=== PATIENT | female | born 1935 | race Caucasian/White ===

== ENCOUNTER → 2016-09-13 | Outpatient (REF) | payer MEDICARE, MEDICAID ==
[~2016-09-13] MED LIST: /TIOT18INH; ABIL15TA; BABY81CH; COLA100C2; CORE12.5; EFFE150C; GENTAMICIN SULFATE; MS C30TA2; NEUR300C; NYSTATIN; POLYTRIM OPTH; REFRESH PM; SENOKOT; SLIDING SCALE; ZOCO80TA
== END ==
PROVIDERS: ATTEND Internal Medicine
DX: E78.5 Hyperlipidemia, unspecified (principal); E11.9 Type 2 diabetes mellitus without complications

== ENCOUNTER → 2016-11-16 | Outpatient (REF) | payer MEDICARE, MEDICAID ==
[2016-11-16 10:52] LABS: MEAN CORPUSCULAR HEMOGLOBIN 30.9 pg (27.0-33.0); MEAN CORPUSCULAR HGB CONC 32.2 g/dl (32.0-36.5); MEAN CORPUSCULAR VOLUME 95.8 fl (80.0-96.0); RED CELL DISTRIBUTION WIDTH 13.7 % (11.5-14.5); WHITE BLOOD COUNT 6.3 K/mm3 (4.0-10.0)
[2016-11-16 11:39] LABS: ALBUMIN 3.1 GM/DL (3.2-5.2); ALBUMIN/GLOBULIN RATIO 0.97 (1.00-1.93); BILIRUBIN,TOTAL 0.3 MG/DL (0.2-1.0); CALCIUM LEVEL 8.4 MG/DL (8.8-10.2); CREATININE FOR GFR 1.2 MG/DL (0.55-1.02); GLOMERULAR FILTRATION RATE 46.1 (>39); POTASSIUM SERUM 4.5 MEQ/L (3.5-5.1); TOTAL PROTEIN 6.3 GM/DL (6.4-8.2)
== END ==
PROVIDERS: ATTEND Internal Medicine
DX: E11.9 Type 2 diabetes mellitus without complications (principal); E78.5 Hyperlipidemia, unspecified; J44.9 Chronic obstructive pulmonary disease, unspecified; E55.9 Vitamin D deficiency, unspecified

== ENCOUNTER → 2017-01-10 | Outpatient (REF) | payer MEDICARE, MEDICAID | PROVIDERS: ATTEND Internal Medicine | DX: N39.0 Urinary tract infection, site not specified (principal) ==

== ENCOUNTER → 2017-01-17 | Outpatient (REF) | payer MEDICARE, MEDICAID ==
--- NOTE | 2017-01-17 15:58 | REP ---
Left ankle series: Two views. History: Edema. Findings: AP and lateral views of the left ankle demonstrate tibiotalar osteoarthritic narrowing and spur formation moderate in degree. There is talonavicular and midfoot osteoarthritic spurring as well. Achilles and plantar calcaneal spurring is noted. No erosive changes seen. There is vascular calcification in the distal calf. Talofibular osteoarthritic spurring is also noted. Impression: Osteoarthritis. Vascular calcification. No acute bony abnormality. Signed by Jb Aquino MD 01/17/2017 04:40 P
== END ==
PROVIDERS: ATTEND Internal Medicine
DX: M19.072 Primary osteoarthritis, left ankle and foot (principal)

== ENCOUNTER → 2017-02-16 | Outpatient (CLI) | payer MEDICARE, MEDICAID ==
--- NOTE | 2017-02-16 09:35 | REP ---
CT HEAD WITHOUT CONTRAST: HISTORY: Bilateral arm numbness. COMPARISON: 02/05/2015 Areas of decreased attenuation are present in the periventricular white matter. This represents small vessel ischemic disease. There is no intraparenchymal hemorrhage, mass or midline shift. The ventricular system, and cortical sulci are dilated consistent with mild volume loss. There is no extracerebral collection. The visualized sinuses are clear. IMPRESSION: 1. Small vessel ischemic disease. 2. Mild volume loss. Signed by Elkin Ronquillo MD 02/16/2017 09:40 A
--- NOTE | 2017-02-16 09:38 | REP ---
CT CERVICAL SPINE WITHOUT CONTRAST: HISTORY: Bilateral arm numbness. COMPARISON: 02/05/2015. There is no acute fracture. Disc bulges are present at the C2-3 and C3-4 levels. Disc bulges with associated osteophyte formation are present at the C4-5 and C6-7 levels. There is fusion of the C5 and 6 vertebral bodies. Posterior osteophytes are present at this level. There is minimal narrowing of the spinal canal. Uncinate process and/or facet hypertrophy are present at the C2-3 through C7-T1 levels. These findings produce minimal to mild narrowing of the neural foramina. The C3-4, C4-5, C6-7 and C7-T1 intervertebral discs are decreased in height consistent with disc degeneration. There are 2 mm of anterior subluxation of C3 on 4. IMPRESSION: There is cervical spondylosis at the C2-3 through C7-T1 levels. There is no significant change compared to the previous study. Signed by Elkin Ronquillo MD 02/16/2017 09:40 A
== END ==
LOC: M RAD 08:42
PROVIDERS: ATTEND Nurse Practitioner Adult Health
DX: M47.812 Spondylosis without myelopathy or radiculopathy, cervical region (principal); I67.82 Cerebral ischemia; G31.9 Degenerative disease of nervous system, unspecified

== ENCOUNTER → 2017-03-17 | Outpatient (REF) | payer MEDICARE, MEDICAID | PROVIDERS: ATTEND Internal Medicine | DX: E11.9 Type 2 diabetes mellitus without complications (principal) ==

== ENCOUNTER → 2017-03-23 | Outpatient (REF) | payer MEDICARE, MEDICAID | LOC: M LAB REF 17:16 | PROVIDERS: ATTEND Internal Medicine | DX: N39.0 Urinary tract infection, site not specified (principal) ==

== ENCOUNTER → 2017-05-16 | Outpatient (REF) | payer MEDICARE, MEDICAID ==
[2017-05-16 11:22] LABS: MEAN CORPUSCULAR HEMOGLOBIN 32.2 pg (27.0-33.0); MEAN CORPUSCULAR HGB CONC 32.8 g/dl (32.0-36.5); MEAN CORPUSCULAR VOLUME 97.9 fl (80.0-96.0); RED CELL DISTRIBUTION WIDTH 13.3 % (11.5-14.5)
[2017-05-16 11:58] LABS: ALBUMIN/GLOBULIN RATIO 0.91 (1.00-1.93); BILIRUBIN,TOTAL 0.4 MG/DL (0.2-1.0); CALCIUM LEVEL 8.6 MG/DL (8.8-10.2); CREATININE FOR GFR 1.15 MG/DL (0.55-1.02); GLOMERULAR FILTRATION RATE 48.5 (>39); TOTAL PROTEIN 6.3 GM/DL (6.4-8.2)
[2017-05-16 12:07] LABS: POTASSIUM SERUM 5.5 MEQ/L (3.5-5.1)
== END ==
PROVIDERS: ATTEND Internal Medicine
DX: E11.9 Type 2 diabetes mellitus without complications (principal); J44.9 Chronic obstructive pulmonary disease, unspecified; D64.9 Anemia, unspecified

== ENCOUNTER → 2017-05-19 | Outpatient (REF) | payer MEDICARE, MEDICAID | PROVIDERS: ATTEND Internal Medicine | DX: E11.9 Type 2 diabetes mellitus without complications (principal); E87.5 Hyperkalemia ==

== ENCOUNTER → 2017-05-24 | Outpatient (REF) | payer MEDICARE, MEDICAID ==
[2017-05-24 10:22] LABS: CREATININE FOR GFR 1.2 MG/DL (0.55-1.02); GLOMERULAR FILTRATION RATE 46.1 (>39)
[2017-05-24 10:25] LABS: POTASSIUM SERUM 5.2 MEQ/L (3.5-5.1)
== END ==
PROVIDERS: ATTEND Internal Medicine
DX: E87.5 Hyperkalemia (principal)

== ENCOUNTER → 2017-05-31 | Outpatient (REF) | payer MEDICARE, MEDICAID ==
[2017-05-31 11:40] LABS: CALCIUM LEVEL 8.6 MG/DL (8.8-10.2); CREATININE FOR GFR 1.03 MG/DL (0.55-1.02); POTASSIUM SERUM 4.1 MEQ/L (3.5-5.1)
== END ==
PROVIDERS: ATTEND Internal Medicine
DX: E87.5 Hyperkalemia (principal)

== ENCOUNTER → 2017-06-06 | Outpatient (CLI) | payer MEDICARE, MEDICAID ==
--- NOTE | 2017-06-06 08:48 | REP ---
Left lower extremity Duplex Doppler venous ultrasound: Real time compression and duplex Doppler interrogation of the left lower extremity deep venous system is performed. The left common femoral, superficial femoral and popliteal veins are fully compressible with transducer pressure and demonstrate normal spontaneous and phasic flow, without evidence of deep venous thrombosis. Impression: No evidence of deep venous thrombosis of the left lower extremity femoral popliteal venous system. Signed by Omar Anderson MD 06/06/2017 08:39 A
== END ==
LOC: M RAD 07:35
PROVIDERS: ATTEND Nurse Practitioner Adult Health
DX: M79.605 Pain in left leg (principal); R60.0 Localized edema

== ENCOUNTER → 2017-06-07 | Outpatient (REF) | payer MEDICARE, MEDICAID ==
[2017-06-07 10:22] LABS: CALCIUM LEVEL 8.9 MG/DL (8.8-10.2); CREATININE FOR GFR 1.09 MG/DL (0.55-1.02); GLOMERULAR FILTRATION RATE 51.5 (>39); POTASSIUM SERUM 4.3 MEQ/L (3.5-5.1)
== END ==
PROVIDERS: ATTEND Internal Medicine
DX: E87.5 Hyperkalemia (principal)

== ENCOUNTER → 2017-06-13 | Outpatient (REF) | payer MEDICARE, MEDICAID ==
[2017-06-13 11:55] LABS: CALCIUM LEVEL 8.6 MG/DL (8.8-10.2); CREATININE FOR GFR 1.15 MG/DL (0.55-1.02); GLOMERULAR FILTRATION RATE 48.5 (>39)
== END ==
PROVIDERS: ATTEND Internal Medicine
DX: I50.9 Heart failure, unspecified (principal)

== ENCOUNTER → 2017-06-20 | Outpatient (REF) | payer MEDICARE, MEDICAID ==
[2017-06-20 12:34] LABS: CALCIUM LEVEL 8.6 MG/DL (8.8-10.2); CREATININE FOR GFR 1.24 MG/DL (0.55-1.02); GLOMERULAR FILTRATION RATE 44.4 (>39); POTASSIUM SERUM 3.5 MEQ/L (3.5-5.1)
== END ==
PROVIDERS: ATTEND Internal Medicine
DX: I50.9 Heart failure, unspecified (principal)

== ENCOUNTER → 2017-06-27 | Outpatient (REF) | payer MEDICARE, MEDICAID ==
[2017-06-27 14:36] LABS: CREATININE FOR GFR 1.16 MG/DL (0.55-1.02)
== END ==
PROVIDERS: ATTEND Internal Medicine
DX: I25.10 Atherosclerotic heart disease of native coronary artery without angina pectoris (principal)

== ENCOUNTER → 2017-07-26 | Outpatient (REF) | PROVIDERS: ATTEND Internal Medicine | DX: E11.43 Type 2 diabetes mellitus with diabetic autonomic (poly)neuropathy (principal) ==

== ENCOUNTER → 2017-09-12 | Outpatient (REF) | payer MEDICARE, MEDICAID ==
[2017-09-12 10:34] LABS: CHOLESTEROL LEVEL 173 MG/DL (<200); CHOLESTEROL RISK RATIO 2.011 (<5); HDL CHOLESTEROL 86 MG/DL (>40); NON-HDL-C 87 MG/DL; TRIGLYCERIDES LEVEL 185 MG/DL (<150)
[2017-09-12 11:24] LABS: ESTIMATED AVERAGE GLUCOSE 171 MG/DL (60-110); HEMOGLOBIN A1c 7.6 %
== END ==
DX: E11.9 Type 2 diabetes mellitus without complications (principal)
CPT/HCPCS: 83036

== ENCOUNTER → 2017-10-06 | Outpatient (REF) | payer MEDICARE, MEDICAID | DX: Z09 Encounter for follow-up examination after completed treatment for conditions other than malignant neoplasm (principal); Z98.890 Other specified postprocedural states; Z96.9 Presence of functional implant, unspecified | CPT/HCPCS: 73630 ==

== ENCOUNTER → 2017-10-31 | Outpatient (REF) | payer MEDICARE, MEDICAID | DX: R10.9 Unspecified abdominal pain (principal) | CPT/HCPCS: 74018 ==

== ENCOUNTER → 2017-11-10 | Outpatient (REF) | payer MEDICARE, MEDICAID ==
[2017-11-10 14:19] LABS: APPEARANCE, URINE CLEAR (CLEAR); BACTERIA, URINE AUTO NEGATIVE (NEGATIVE); BILIRUBIN, URINE AUTO NEGATIVE (NEGATIVE); BLOOD, URINE BLOOD NEGATIVE (NEGATIVE); COLOR, URINE STRAW (YELLOW); GLUCOSE, URINE (UA) AUTO NEGATIVE (NEGATIVE); KETONE, URINE AUTO NEGATIVE (NEGATIVE); LEUKOCYTE ESTERASE, URINE AUTO TRACE (NEGATIVE); NITRITE, URINE AUTO NEGATIVE (NEGATIVE); PROTEIN, URINE AUTO NEGATIVE (NEGATIVE); RBC, URINE AUTO 1 /HPF (0-3); SPECIFIC GRAVITY URINE AUTO 1.006 (1.002-1.035); SQUAMOUS EPITHELIAL CELL UR AU 1 /HPF (0-6); UROBILINOGEN, URINE AUTO 0.2 mg/dL (0.0-2.0); WBC, URINE AUTO 6 /HPF (0-3)
== END ==
DX: R10.9 Unspecified abdominal pain (principal)
CPT/HCPCS: 81001

== ENCOUNTER → 2017-11-15 | Outpatient (REF) | payer MEDICARE, MEDICAID ==
[2017-11-15 08:06] LABS: HEMATOCRIT 39.3 % (36.0-47.0); HEMOGLOBIN 12.4 g/dl (12.0-16.0); MEAN CORPUSCULAR HEMOGLOBIN 29.7 pg (27.0-33.0); MEAN CORPUSCULAR HGB CONC 31.6 g/dl (32.0-36.5); PLATELET COUNT, AUTOMATED 233 10^3/uL (150-450); RED BLOOD COUNT 4.18 10^6/uL (4.00-5.40); RED CELL DISTRIBUTION WIDTH 13.8 % (11.5-14.5); WHITE BLOOD COUNT 6.5 10^3/uL (4.0-10.0)
[2017-11-15 08:37] LABS: ALBUMIN 3.1 GM/DL (3.2-5.2); ALBUMIN/GLOBULIN RATIO 0.84 (1.00-1.93); ALKALINE PHOSPHATASE 84 U/L (45-117); ALT/SGPT 16 U/L (12-78); ANION GAP 5 MEQ/L (8-16); AST/SGOT 10 U/L (7-37); BILIRUBIN,TOTAL 0.3 MG/DL (0.2-1.0); BLOOD UREA NITROGEN 15 MG/DL (7-18); CALCIUM LEVEL 8.6 MG/DL (8.8-10.2); CARBON DIOXIDE LEVEL 36 MEQ/L (21-32); CHLORIDE LEVEL 100 MEQ/L (98-107); CREATININE FOR GFR 1.05 MG/DL (0.55-1.30); GLOMERULAR FILTRATION RATE 53.7 (>32); GLUCOSE, FASTING 151 MG/DL (70-100); POTASSIUM SERUM 4.4 MEQ/L (3.5-5.1); SODIUM LEVEL 141 MEQ/L (136-145); TOTAL PROTEIN 6.8 GM/DL (6.4-8.2)
[2017-11-15 09:48] LABS: TOTAL 25(OH) VITAMIN D 18.7 NG/ML (30.0-100.0)
== END ==
DX: D64.9 Anemia, unspecified (principal); E11.9 Type 2 diabetes mellitus without complications; J44.9 Chronic obstructive pulmonary disease, unspecified; E03.9 Hypothyroidism, unspecified
CPT/HCPCS: 84443

== ENCOUNTER → 2018-01-09 | Outpatient (CLI) | payer MEDICARE, MEDICAID | LOC: M RAD 10:25 | DX: R22.42 Localized swelling, mass and lump, left lower limb (principal) | CPT/HCPCS: 76882 ==

== ENCOUNTER → 2018-01-16 | Outpatient (REF) | payer MEDICARE, MEDICAID ==
[2018-01-16 10:00] LABS: TOTAL 25(OH) VITAMIN D 24.4 NG/ML (30.0-100.0)
== END ==
DX: E55.9 Vitamin D deficiency, unspecified (principal)
CPT/HCPCS: 82306

== ENCOUNTER → 2018-01-19 | Outpatient (CLI) | payer MEDICARE, MEDICAID | LOC: M RAD 09:59 | DX: M79.89 Other specified soft tissue disorders (principal); Z53.20 Procedure and treatment not carried out because of patient's decision for unspecified reasons ==

== ENCOUNTER → 2018-01-26 | Outpatient (CLI) | payer MEDICARE, MEDICAID ==
[~2018-01-26] MED LIST changes: -/TIOT18INH; -ABIL15TA; -BABY81CH; -COLA100C2; -CORE12.5; -EFFE150C; -GENTAMICIN SULFATE; -MS C30TA2; -NEUR300C; -NYSTATIN; -POLYTRIM OPTH; +PROHANCE 279.3MG/ML 15ML VIAL (A9576) As Ordered; -REFRESH PM; -SENOKOT; -SLIDING SCALE; -ZOCO80TA
== END ==
LOC: M RAD 08:39
DX: M79.89 Other specified soft tissue disorders (principal)
CPT/HCPCS: A9576

== ENCOUNTER → 2018-03-04 | Outpatient (REF) | payer MEDICARE, MEDICAID | DX: R19.7 Diarrhea, unspecified (principal) | CPT/HCPCS: 87507 ==

== ENCOUNTER → 2018-03-20 | Outpatient (REF) | payer MEDICARE, MEDICAID ==
[2018-03-20 11:03] LABS: TOTAL 25(OH) VITAMIN D 29.7 NG/ML (30.0-100.0)
== END ==
DX: E55.9 Vitamin D deficiency, unspecified (principal)
CPT/HCPCS: 82306

== ENCOUNTER → 2018-05-15 | Outpatient (REF) ==
[2018-05-15 11:10] LABS: HEMATOCRIT 37.7 % (36.0-47.0); HEMOGLOBIN 11.8 g/dl (12.0-15.5); MEAN CORPUSCULAR HEMOGLOBIN 31.4 pg (27.0-33.0); MEAN CORPUSCULAR HGB CONC 31.3 g/dl (32.0-36.5); MEAN CORPUSCULAR VOLUME 100.3 fl (80.0-96.0); PLATELET COUNT, AUTOMATED 163 10^3/uL (150-450); RED BLOOD COUNT 3.76 10^6/uL (4.00-5.40); RED CELL DISTRIBUTION WIDTH 13.8 % (11.5-14.5); WHITE BLOOD COUNT 5.7 10^3/uL (4.0-10.0)
[2018-05-15 11:35] LABS: ALBUMIN 3.1 GM/DL (3.2-5.2); ALBUMIN/GLOBULIN RATIO 0.94 (1.00-1.93); ALKALINE PHOSPHATASE 77 U/L (45-117); ALT/SGPT 18 U/L (12-78); ANION GAP 9 MEQ/L (8-16); AST/SGOT 11 U/L (7-37); BILIRUBIN,TOTAL 0.3 MG/DL (0.2-1.0); BLOOD UREA NITROGEN 15 MG/DL (7-18); CALCIUM LEVEL 8.8 MG/DL (8.8-10.2); CARBON DIOXIDE LEVEL 34 MEQ/L (21-32); CHLORIDE LEVEL 101 MEQ/L (98-107); CREATININE FOR GFR 1.15 MG/DL (0.55-1.30); GLOMERULAR FILTRATION RATE 48.3 (>32); GLUCOSE, FASTING 134 MG/DL (70-100); POTASSIUM SERUM 4.6 MEQ/L (3.5-5.1); SODIUM LEVEL 144 MEQ/L (136-145); TOTAL PROTEIN 6.4 GM/DL (6.4-8.2)
[2018-05-15 12:04] LABS: TOTAL 25(OH) VITAMIN D 56.7 NG/ML (30.0-100.0)
== END ==
DX: E03.9 Hypothyroidism, unspecified (principal); E11.9 Type 2 diabetes mellitus without complications; J44.9 Chronic obstructive pulmonary disease, unspecified; D64.9 Anemia, unspecified

== ENCOUNTER → 2018-06-07 | Outpatient (REF) ==
[2018-06-07 14:25] LABS: CHOLESTEROL LEVEL 155 MG/DL (<200); CHOLESTEROL RISK RATIO 2.246 (<5); HDL CHOLESTEROL 69 MG/DL (>40); LDL CHOLESTEROL 44 MG/DL (<100); NON-HDL-C 86 MG/DL; TRIGLYCERIDES LEVEL 210 MG/DL (<150)
[2018-06-07 14:46] LABS: ESTIMATED AVERAGE GLUCOSE 169 MG/DL (60-110); HEMOGLOBIN A1c 7.5 %
== END ==
DX: E11.9 Type 2 diabetes mellitus without complications (principal)

== ENCOUNTER → 2018-07-17 | Outpatient (REF) ==
[2018-07-17 10:50] LABS: TOTAL 25(OH) VITAMIN D 51.8 NG/ML (30.0-100.0)
== END | disposition home or self-care (01) ==
DX: E55.9 Vitamin D deficiency, unspecified (principal)

== ENCOUNTER → 2018-09-03 | Outpatient (REF) | DX: R06.02 Shortness of breath (principal) ==

== ENCOUNTER → 2018-09-13 | Outpatient (REF) ==
[~2018-09-13] MED LIST changes: +/TIOT18INH; +ABIL15TA; +BABY81CH; +COLA100C2; +CORE12.5; +EFFE150C; +GENTAMICIN SULFATE; +MS C30TA2; +NEUR300C; +NYSTATIN; +POLYTRIM OPTH; -PROHANCE 279.3MG/ML 15ML VIAL (A9576) As Ordered; +REFRESH PM; +SENOKOT; +SLIDING SCALE; +ZOCO80TA
[2018-09-13 11:06] LABS: CALCIUM LEVEL 8.6 MG/DL (8.8-10.2); CREATININE FOR GFR 1.21 MG/DL (0.55-1.30); GLOMERULAR FILTRATION RATE 45.6 (>32); POTASSIUM SERUM 4.2 MEQ/L (3.5-5.1)
[2018-09-13 11:20] LABS: PTH INTACT 145.1 PG/ML (18.5-88.0)
== END ==
PROVIDERS: ATTEND Internal Medicine
DX: I50.9 Heart failure, unspecified (principal); N18.9 Chronic kidney disease, unspecified

== ENCOUNTER → 2018-10-18 | Outpatient (CLI) | payer MEDICARE, MEDICAID ==
--- NOTE | 2018-10-18 15:25 | REP ---
RENAL AND BLADDER ULTRASOUND: Real-time sonographic evaluation of the kidneys and bladder are performed. The study is extremely limited due to patient body habitus. The right kidney could not be visualized. The left kidney appears normal in size, 9.4 x 4.0 x 4.6 cm. There is no definite hydronephrosis or mass of the left kidney. The urinary bladder is mildly distended with no gross abnormality. IMPRESSION: Grossly negative ultrasound left kidney and bladder with right kidney not visualized. Electronically Signed by Omar Anderson MD 10/18/2018 05:32 P
== END ==
LOC: M RAD 13:10
PROVIDERS: ATTEND Internal Medicine Nephrology
DX: N18.3 Chronic kidney disease, stage 3 (moderate) (principal)

== ENCOUNTER → 2018-11-05 | Outpatient (REF) | payer MEDICARE, MEDICAID ==
[2018-11-05 12:07] LABS: HEMATOCRIT 37.4 % (36.0-47.0); HEMOGLOBIN 11.8 g/dl (12.0-15.5); MEAN CORPUSCULAR HEMOGLOBIN 30.6 pg (27.0-33.0); MEAN CORPUSCULAR HGB CONC 31.6 g/dl (32.0-36.5); MEAN CORPUSCULAR VOLUME 96.9 fl (80.0-96.0); PLATELET COUNT, AUTOMATED 172 10^3/uL (150-450); RED BLOOD COUNT 3.86 10^6/uL (4.00-5.40)
--- NOTE | 2018-11-05 12:16 | REP ---
Clinical: Abnormal breath sounds . Comparison: 09/03/2018 . Findings: The mediastinum and cardiac silhouette are stable and within normal limits for portable technique. The lung freeman are clear without acute consolidation, effusion, or pneumothorax. Skeletal structures are intact. Impression: No acute cardiopulmonary process appreciated. Electronically Signed by Jeff Wayne MD 11/05/2018 12:07 P
[2018-11-05 12:40] LABS: CALCIUM LEVEL 8.8 MG/DL (8.8-10.2); CREATININE FOR GFR 1.13 MG/DL (0.55-1.30); GLOMERULAR FILTRATION RATE 49.2 (>32); POTASSIUM SERUM 3.8 MEQ/L (3.5-5.1)
== END ==
PROVIDERS: ATTEND Internal Medicine
DX: R09.89 Other specified symptoms and signs involving the circulatory and respiratory systems (principal)

== ENCOUNTER → 2018-11-14 | Outpatient (REF) | payer MEDICARE, MEDICAID ==
[2018-11-14 10:29] LABS: HEMATOCRIT 37.4 % (36.0-47.0); HEMOGLOBIN 11.4 g/dl (12.0-15.5); MEAN CORPUSCULAR HEMOGLOBIN 30.1 pg (27.0-33.0); MEAN CORPUSCULAR HGB CONC 30.5 g/dl (32.0-36.5); MEAN CORPUSCULAR VOLUME 98.7 fl (80.0-96.0); PLATELET COUNT, AUTOMATED 167 10^3/uL (150-450); RED BLOOD COUNT 3.79 10^6/uL (4.00-5.40); WHITE BLOOD COUNT 5.5 10^3/uL (4.0-10.0)
[2018-11-14 10:51] LABS: HEMOGLOBIN A1c 7.2 %
[2018-11-14 11:02] LABS: ALBUMIN 2.9 GM/DL (3.2-5.2); BILIRUBIN,TOTAL 0.3 MG/DL (0.2-1.0); CALCIUM LEVEL 8.3 MG/DL (8.8-10.2); CHOLESTEROL RISK RATIO 2.333 (<5); CREATININE FOR GFR 1.1 MG/DL (0.55-1.30); GLOMERULAR FILTRATION RATE 50.7 (>32); POTASSIUM SERUM 3.9 MEQ/L (3.5-5.1); THYROID STIMULATING HORMONE 2.51 uIU/ML (0.358-3.740); TOTAL 25(OH) VITAMIN D 57.3 NG/ML (30.0-100.0); TOTAL PROTEIN 6.3 GM/DL (6.4-8.2)
== END ==
PROVIDERS: ATTEND Nurse Practitioner Adult Health
DX: E03.9 Hypothyroidism, unspecified (principal); Z79.899 Other long term (current) drug therapy

== ENCOUNTER → 2019-01-03 | Outpatient (CLI) | payer MEDICARE, MEDICAID ==
[~2019-01-03] MED LIST changes: -/TIOT18INH; +CONRAY-43 43% 50ML VIAL (Q9960) As Ordered ONE; +LIDOCAINE 1% MDV 20ML VIAL As Ordered ONE; +SPIR1CAP; +TRIAMCINOLONE ACETONIDE SUSP 40 MG/ML VIAL (J3301) As Ordered ONE
--- NOTE | 2019-01-04 12:17 | REP ---
Examination requested: Right shoulder arthrocentesis Reason For Patient Visit: Neck and shoulder pain Reason For Exam/Comment: Neck and shoulder pain Procedure: Right shoulder arthrocentesis The procedure was performed by HAMILTON You, under the direct supervision of Dr. Anderson. The benefits and risks including but not limited to pain, infection, bleeding and anaphylaxis were explained to the patient and informed consent was obtained both verbally and written. Directly prior to the start of the procedure, a formal time a was completed in the procedure room. Technique: The right glenohumeral joint was localized using fluoroscopic guidance. The skin was prepped and draped in the usual sterile fashion. 5 mL of 1% lidocaine was used as a local anesthetic. Using fluoroscopic guidance a 22-gauge spinal needle was inserted and advanced to the right glenohumeral joint space . 1 mL of Conray 43 was injected to verify needle placement. A 6 mL solution containing a 4 mL 1% lidocaine 10 mg/ml and 1 mg of Kenalog 40 mg/ml was injected into the joint. The needle was removed and hemostasis was achieved. The patient tolerated the procedure well and there were no immediate complications. 0.3 minutes of fluoroscopy time was utilized for this procedure. Reviewed by HAMILTON Rodriguez 01/03/2019 05:30 P Electronically Signed by Omar Anderson MD 01/04/2019 12:07 P
== END ==
LOC: M RADPRO 09:52
PROVIDERS: ATTEND Physician Assistant
DX: M19.011 Primary osteoarthritis, right shoulder (principal)
CPT/HCPCS: 20610; 77002; J3301; Q9960

== ENCOUNTER → 2019-01-04 | Outpatient (CLI) | payer MEDICARE, MEDICAID ==
[~2019-01-04] MED LIST changes: -CONRAY-43 43% 50ML VIAL (Q9960) As Ordered ONE; -LIDOCAINE 1% MDV 20ML VIAL As Ordered ONE; -TRIAMCINOLONE ACETONIDE SUSP 40 MG/ML VIAL (J3301) As Ordered ONE
--- NOTE | 2019-01-04 12:25 | REP ---
MRI CERVICAL SPINE WITHOUT CONTRAST: HISTORY: Neck pain. A disc bulge is present at the C3-4 level. There is mild effacement of the thecal sac without spinal cord compression. Bilateral uncinate process hypertrophy is present. This produces moderate and mild narrowing of the right and left C5 neural foramina respectively. A disc bulge with associated osteophyte formation is present at the C4-5 level. There is moderate effacement of the thecal sac without spinal cord compression. Bilateral uncinate process hypertrophy is present. This produces moderate and mild narrowing of the right and left C5 neural foramina respectively. There is partial fusion of the C5 and 6 vertebral bodies. A disc bulge with associated osteophyte formation is present at the C5-6 level. There is moderate effacement of the thecal sac without spinal cord compression. Bilateral uncinate process hypertrophy is present. This produces mild and minimal narrowing of the right and left C5 neural foramina respectively. A disc bulge with associated osteophyte formation is present at the C6-7 level. There is mild effacement of the thecal sac without spinal cord compression. Bilateral uncinate process hypertrophy is present. This produces mild and minimal narrowing of the right and left C6 neural foramina respectively. A disc bulge is present at the C7-T1 level. There are 2 mm of anterior subluxation of C7 on T1. There is mild effacement of the thecal sac without spinal cord compression. Bilateral facet hypertrophy is present. This produces minimal and mild narrowing of the right and left C7 neural foramina respectively. There is no other disc bulge or herniation. The remaining neural foramina are patent. The spinal cord is normal in signal intensity. The C4-5 through C6-7 intervertebral discs are decreased in height consistent with disc degeneration. Normal signal intensity is present in the cervical vertebral bodies. IMPRESSION: There is cervical spondylosis at the C3-4 through C7-T1 levels without spinal cord compression. Electronically Signed by Elkin Ronquillo MD 01/04/2019 12:30 P
== END ==
LOC: M RAD 10:20
PROVIDERS: ATTEND Physician Assistant
DX: M50.21 Other cervical disc displacement, high cervical region (principal); M47.812 Spondylosis without myelopathy or radiculopathy, cervical region; M50.221 Other cervical disc displacement at C4-C5 level; M50.222 Other cervical disc displacement at C5-C6 level; M50.223 Other cervical disc displacement at C6-C7 level; M50.23 Other cervical disc displacement, cervicothoracic region; M50.320 Other cervical disc degeneration, mid-cervical region, unspecified level; M25.78 Osteophyte, vertebrae

== ENCOUNTER → 2019-01-14 | Outpatient (REF) | payer MEDICARE, MEDICAID ==
[2019-01-14 14:07] LABS: BASO % 0.5 % (0.0-1.0); EOS # 0.2 10^3/uL (0.0-0.50); EOS % 2.3 % (0.0-3.0); HEMATOCRIT 38.7 % (36.0-47.0); HEMOGLOBIN 12.2 g/dl (12.0-15.5); LYMPH # 0.9 10^3/uL (1.5-4.5); MEAN CORPUSCULAR HGB CONC 31.5 g/dl (32.0-36.5); MEAN CORPUSCULAR VOLUME 98.2 fl (80.0-96.0); MONO % 11.4 % (0.0-5.0); NEUTROPHILS # 6.2 10^3/uL (1.8-7.7); NEUTROPHILS % 73.8 % (36.0-66.0); PLATELET COUNT, AUTOMATED 211 10^3/uL (150-450); RED BLOOD COUNT 3.94 10^6/uL (4.00-5.40); WHITE BLOOD COUNT 8.4 10^3/uL (4.0-10.0)
[2019-01-14 14:56] LABS: ALBUMIN 2.8 GM/DL (3.2-5.2); CALCIUM LEVEL 8.3 MG/DL (8.8-10.2); CREATININE FOR GFR 1.15 MG/DL (0.55-1.30); GLOMERULAR FILTRATION RATE 48.2 (>32); MAGNESIUM LEVEL 1.9 MG/DL (1.8-2.4); PHOSPHORUS LEVEL 3.5 MG/DL (2.5-4.9); POTASSIUM SERUM 4.7 MEQ/L (3.5-5.1); PTH INTACT 149.1 PG/ML (18.5-88.0)
== END ==
PROVIDERS: ATTEND Internal Medicine
DX: D64.9 Anemia, unspecified (principal); E55.9 Vitamin D deficiency, unspecified

== ENCOUNTER → 2019-01-17 | Outpatient (REF) | payer MEDICARE, MEDICAID ==
[2019-01-18 09:41] LABS: CREATININE,RANDOM URINE 17.9 MG/DL; TOTAL PROTEIN,RANDOM URINE < 5.0 MG/DL (0.0-12.0)
== END ==
LOC: M LAB REF 08:58
PROVIDERS: ATTEND Internal Medicine
DX: N18.9 Chronic kidney disease, unspecified (principal); E21.3 Hyperparathyroidism, unspecified

== ENCOUNTER → 2019-01-28 | Outpatient (REF) | payer MEDICARE, MEDICAID ==
[2019-01-28 12:24] LABS: HEMATOCRIT 35.2 % (36.0-47.0); HEMOGLOBIN 11.2 g/dl (12.0-15.5); MEAN CORPUSCULAR HEMOGLOBIN 30.6 pg (27.0-33.0); MEAN CORPUSCULAR HGB CONC 31.8 g/dl (32.0-36.5); MEAN CORPUSCULAR VOLUME 96.2 fl (80.0-96.0); PLATELET COUNT, AUTOMATED 162 10^3/uL (150-450); RED BLOOD COUNT 3.66 10^6/uL (4.00-5.40); WHITE BLOOD COUNT 10.2 10^3/uL (4.0-10.0)
[2019-01-28 12:54] LABS: ALBUMIN 2.6 GM/DL (3.2-5.2); BILIRUBIN,TOTAL 0.4 MG/DL (0.2-1.0); CALCIUM LEVEL 8.5 MG/DL (8.8-10.2); CREATININE FOR GFR 1.05 MG/DL (0.55-1.30); GLOMERULAR FILTRATION RATE 53.5 (>32); POTASSIUM SERUM 3.5 MEQ/L (3.5-5.1); TOTAL PROTEIN 5.6 GM/DL (6.4-8.2)
--- NOTE | 2019-01-28 13:01 | REP ---
Chest one-view HISTORY: Fever Comparison: 11/05/2018 The lungs are clear. The heart is normal in size. The pulmonary vasculature is normal in appearance. Impression: No acute disease. Electronically Signed by Elkin Ronquillo MD 01/28/2019 12:52 P
== END ==
PROVIDERS: ATTEND Internal Medicine
DX: R50.9 Fever, unspecified (principal)

== ENCOUNTER → 2019-01-31 | Outpatient (REF) | payer MEDICARE, MEDICAID ==
[2019-01-31 09:49] LABS: HEMATOCRIT 35.2 % (36.0-47.0); HEMOGLOBIN 10.7 g/dl (12.0-15.5); MEAN CORPUSCULAR HEMOGLOBIN 30.1 pg (27.0-33.0); MEAN CORPUSCULAR HGB CONC 30.4 g/dl (32.0-36.5); MEAN CORPUSCULAR VOLUME 98.9 fl (80.0-96.0); PLATELET COUNT, AUTOMATED 183 10^3/uL (150-450); RED BLOOD COUNT 3.56 10^6/uL (4.00-5.40); WHITE BLOOD COUNT 7.1 10^3/uL (4.0-10.0)
[2019-01-31 10:18] LABS: ALBUMIN 2.5 GM/DL (3.2-5.2); BILIRUBIN,TOTAL 0.2 MG/DL (0.2-1.0); CALCIUM LEVEL 8.4 MG/DL (8.8-10.2); CREATININE FOR GFR 1.22 MG/DL (0.55-1.30); POTASSIUM SERUM 3.4 MEQ/L (3.5-5.1); TOTAL PROTEIN 5.3 GM/DL (6.4-8.2)
== END ==
PROVIDERS: ATTEND Nurse Practitioner Adult Health
DX: N18.9 Chronic kidney disease, unspecified (principal)

== ENCOUNTER → 2019-02-06 | Outpatient (REF) | payer MEDICARE, MEDICAID ==
--- NOTE | 2019-02-06 16:12 | REP ---
Clinical: Diarrhea. Technique: Two portable supine views of the abdomen and pelvis. Findings: Ventilation is limited by underpenetration and portable technique. No obvious bowel obstruction noted. Impression: No obvious bowel obstruction. Limited examination. Electronically Signed by Jeff Wayne MD 02/06/2019 04:04 P
== END ==
PROVIDERS: ATTEND Internal Medicine
DX: R19.7 Diarrhea, unspecified (principal)

== ENCOUNTER → 2019-03-11 | Outpatient (REF) | payer MEDICARE, MEDICAID | PROVIDERS: ATTEND Nurse Practitioner Adult Health | DX: M79.676 Pain in unspecified toe(s) (principal); L53.9 Erythematous condition, unspecified ==

== ENCOUNTER → 2019-05-15 | Outpatient (REF) | payer MEDICARE, MEDICAID ==
[2019-05-15 11:24] LABS: HEMATOCRIT 39.7 % (36.0-47.0); HEMOGLOBIN 12.4 g/dl (12.0-15.5); MEAN CORPUSCULAR HEMOGLOBIN 30.9 pg (27.0-33.0); MEAN CORPUSCULAR HGB CONC 31.2 g/dl (32.0-36.5); PLATELET COUNT, AUTOMATED 156 10^3/uL (150-450); RED BLOOD COUNT 4.01 10^6/uL (4.00-5.40); WHITE BLOOD COUNT 6.9 10^3/uL (4.0-10.0)
[2019-05-15 11:46] LABS: HEMOGLOBIN A1c 7.7 %
[2019-05-15 11:59] LABS: ALBUMIN 3.1 GM/DL (3.2-5.2); BILIRUBIN,TOTAL 0.4 MG/DL (0.2-1.0); CALCIUM LEVEL 8.8 MG/DL (8.8-10.2); CHOLESTEROL RISK RATIO 2.842 (<5); CREATININE FOR GFR 1.06 MG/DL (0.55-1.30); POTASSIUM SERUM 3.8 MEQ/L (3.5-5.1); THYROID STIMULATING HORMONE 3.33 uIU/ML (0.358-3.740); TOTAL PROTEIN 6.3 GM/DL (6.4-8.2)
[2019-05-15 13:58] LABS: TOTAL 25(OH) VITAMIN D 47.2 NG/ML (30.0-100.0)
== END ==
PROVIDERS: ATTEND Internal Medicine
DX: N18.9 Chronic kidney disease, unspecified (principal)

== ENCOUNTER → 2019-06-11 | Outpatient (REF) | payer MEDICARE, MEDICAID | PROVIDERS: ATTEND Internal Medicine | DX: E11.9 Type 2 diabetes mellitus without complications (principal) ==

== ENCOUNTER → 2019-06-19 | Outpatient (REF) | payer MEDICARE, MEDICAID ==
[2019-06-19 09:25] LABS: BASO % 0.4 % (0.0-1.0); EOS # 0.2 10^3/uL (0.0-0.5); EOS % 2.4 % (0.0-3.0); HEMATOCRIT 43.1 % (36.0-47.0); HEMOGLOBIN 12.9 g/dl (12.0-15.5); LYMPH # 0.7 10^3/uL (1.5-5.0); MEAN CORPUSCULAR HEMOGLOBIN 29.7 pg (27.0-33.0); MEAN CORPUSCULAR HGB CONC 29.9 g/dl (32.0-36.5); MEAN CORPUSCULAR VOLUME 99.1 fl (80.0-96.0); MONO # 0.6 10^3/uL (0.0-0.8); MONO % 7.8 % (0.0-5.0); NEUTROPHILS # 5.6 10^3/uL (1.5-8.5); NEUTROPHILS % 78.4 % (36.0-66.0); PLATELET COUNT, AUTOMATED 179 10^3/uL (150-450); RED BLOOD COUNT 4.35 10^6/uL (4.00-5.40); WHITE BLOOD COUNT 7.1 10^3/uL (4.0-10.0)
[2019-06-19 09:45] LABS: ALBUMIN 3.2 GM/DL (3.2-5.2); CREATININE FOR GFR 1.21 MG/DL (0.55-1.30); GLOMERULAR FILTRATION RATE 45.5 (>32); PHOSPHORUS LEVEL 3.9 MG/DL (2.5-4.9)
[2019-06-19 09:55] LABS: PTH INTACT 125.7 PG/ML (18.5-88.0)
[2019-06-19 20:01] LABS: APPEARANCE, URINE HAZY (CLEAR); BACTERIA, URINE AUTO 3+ (NEGATIVE); BILIRUBIN, URINE AUTO NEGATIVE (NEGATIVE); BLOOD, URINE BLOOD NEGATIVE (NEGATIVE); COLOR, URINE YELLOW (YELLOW); GLUCOSE, URINE (UA) AUTO NEGATIVE (NEGATIVE); KETONE, URINE AUTO NEGATIVE (NEGATIVE); LEUKOCYTE ESTERASE, URINE AUTO 2+ (NEGATIVE); MUCUS, URINE SMALL (NEGATIVE); NITRITE, URINE AUTO NEGATIVE (NEGATIVE); PROTEIN, URINE AUTO NEGATIVE (NEGATIVE); RBC, URINE AUTO 1 /HPF (0-3); SPECIFIC GRAVITY URINE AUTO 1.009 (1.002-1.035); SQUAMOUS EPITHELIAL CELL UR AU 1 /HPF (0-6); UROBILINOGEN, URINE AUTO 0.2 mg/dL (0.0-2.0); WBC, URINE AUTO 48 /HPF (0-3)
== END ==
PROVIDERS: ATTEND Internal Medicine
DX: E78.5 Hyperlipidemia, unspecified (principal); E55.9 Vitamin D deficiency, unspecified

== ENCOUNTER → 2019-09-26 | Outpatient (REF) | payer MEDICARE, MEDICAID ==
--- NOTE | 2019-09-26 11:56 | REPPI ---
Portable chest x-ray: Single view. History: Shortness of breath. Comparison chest x-ray: January 28, 2019. Findings: The lungs are well inflated and free of infiltrate. Pleural angles are sharp. Heart size is unchanged . No significant bony abnormality is appreciated. Impression: No active disease. Electronically Signed by Jb Aquino MD 09/26/2019 11:47 A
== END ==
PROVIDERS: ATTEND Internal Medicine
DX: R06.02 Shortness of breath (principal)

== ENCOUNTER → 2019-10-03 | Outpatient (CLI) | payer MEDICARE, MEDICAID ==
[~2019-10-03] MED LIST changes: +CONRAY-43 43% 50ML VIAL (Q9960) As Ordered ONE; +LIDOCAINE 1% MDV 20ML VIAL As Ordered ONE; +TRIAMCINOLONE ACETONIDE SUSP 40 MG/ML VIAL (J3301) As Ordered ONE
--- NOTE | 2019-10-03 17:04 | REP ---
Reason For Exam/Comment: Osteoarthritis of the right shoulder Procedure: Right shoulder intra-articular injection The procedure was performed by HAMILTON You, under the direct supervision of Dr. Aquino. The benefits and risks including but not limited to pain, infection, bleeding and anaphylaxis were explained to the patient and informed consent was obtained both verbally and written. Directly prior to the start of the procedure, a formal timeout was completed in the procedure room. The right glenohumeral joint space was localized using fluoroscopic guidance. The skin was prepped and draped in the usual sterile fashion. 5 mL of 1% lidocaine 10 mg/ml was used as a local anesthetic. Using fluoroscopic guidance a 22-gauge spinal needle was inserted and advanced to the right glenohumeral joint space. 1 mL of Conray 43 was injected to verify needle placement. A 6 mL solution containing a 5 mL 1% lidocaine 10 mg/ml and 1 ml of Kenalog 40 mg/ml was injected into the joint. The needle was removed and hemostasis was achieved. The patient tolerated the procedure well and there were no immediate complications. 0.2 minutes of fluoroscopy time was utilized for this procedure. Some fluoroscopic images are performed with last image hold technology. These images require no additional radiation. Reviewed by HAMILTON Rodriguez 10/03/2019 03:24 P Electronically Signed by Jb Aquino MD 10/03/2019 04:55 P
== END ==
LOC: M RADPRO 12:50
PROVIDERS: ATTEND Physician Assistant
DX: M19.011 Primary osteoarthritis, right shoulder (principal)
CPT/HCPCS: 20610; 77002; J3301; Q9960

== ENCOUNTER → 2019-11-13 | Outpatient (REF) | payer MEDICARE, MEDICAID ==
[~2019-11-13] MED LIST changes: -CONRAY-43 43% 50ML VIAL (Q9960) As Ordered ONE; -LIDOCAINE 1% MDV 20ML VIAL As Ordered ONE; -TRIAMCINOLONE ACETONIDE SUSP 40 MG/ML VIAL (J3301) As Ordered ONE
[2019-11-13 13:01] LABS: ALBUMIN 2.8 GM/DL (3.2-5.2); BILIRUBIN,TOTAL 0.4 MG/DL (0.2-1.0); CALCIUM LEVEL 9.1 MG/DL (8.8-10.2); CHOLESTEROL RISK RATIO 2.328 (<5); CREATININE FOR GFR 1.13 MG/DL (0.55-1.30); GLOMERULAR FILTRATION RATE 49.1 (>32); POTASSIUM SERUM 4.8 MEQ/L (3.5-5.1); TOTAL PROTEIN 6.1 GM/DL (6.4-8.2)
[2019-11-13 14:17] LABS: HEMATOCRIT 36.3 % (36.0-47.0); HEMOGLOBIN 11.6 g/dl (12.0-15.5); PLATELET COUNT, AUTOMATED 228 10^3/uL (150-450); RED BLOOD COUNT 3.63 10^6/uL (4.00-5.40); WHITE BLOOD COUNT 9.5 10^3/uL (4.0-10.0)
[2019-11-13 14:24] LABS: HEMOGLOBIN A1c 7.1 %
== END ==
PROVIDERS: ATTEND Internal Medicine
DX: E11.9 Type 2 diabetes mellitus without complications (principal)

== ENCOUNTER → 2020-01-25 | Outpatient (REF) | payer MEDICARE, MEDICAID | PROVIDERS: ATTEND Internal Medicine | DX: Z03.818 Encounter for observation for suspected exposure to other biological agents ruled out (principal) ==

== ENCOUNTER → 2020-01-27 | Outpatient (REF) | PROVIDERS: ATTEND Internal Medicine | DX: Z11.59 Encounter for screening for other viral diseases (principal); Z53.9 Procedure and treatment not carried out, unspecified reason ==

== ENCOUNTER → 2020-02-12 | Outpatient (REF) | payer MEDICARE, MEDICAID ==
[2020-02-12 15:25] LABS: BASO % 0.5 % (0.0-1.0); EOS # 0.3 10^3/uL (0.0-0.5); EOS % 3.5 % (0.0-3.0); HEMATOCRIT 40.4 % (36.0-47.0); HEMOGLOBIN 12.4 g/dl (12.0-15.5); LYMPH # 0.8 10^3/uL (1.5-5.0); MEAN CORPUSCULAR HEMOGLOBIN 31.1 pg (27.0-33.0); MEAN CORPUSCULAR HGB CONC 30.7 g/dl (32.0-36.5); MEAN CORPUSCULAR VOLUME 101.3 fl (80.0-96.0); MONO # 0.5 10^3/uL (0.0-0.8); MONO % 6.8 % (0.0-5.0); NEUTROPHILS # 6.2 10^3/uL (1.5-8.5); NEUTROPHILS % 78.2 % (36.0-66.0); PLATELET COUNT, AUTOMATED 171 10^3/uL (150-450); RED BLOOD COUNT 3.99 10^6/uL (4.00-5.40); WHITE BLOOD COUNT 7.9 10^3/uL (4.0-10.0)
[2020-02-12 16:00] LABS: ALBUMIN 3.1 GM/DL (3.2-5.2); BILIRUBIN,TOTAL 0.3 MG/DL (0.2-1.0); CALCIUM LEVEL 8.7 MG/DL (8.8-10.2); CREATININE FOR GFR 1.44 MG/DL (0.55-1.30); GLOMERULAR FILTRATION RATE 37.1 (>32); POTASSIUM SERUM 3.3 MEQ/L (3.5-5.1); TOTAL PROTEIN 6.1 GM/DL (6.4-8.2)
--- NOTE | 2020-02-12 16:13 | REPPI ---
REASON: Hypoxia. COMPARISON: 09/26/2019 Once again, the examination is limited by the patient's body habitus and technique. There is poor penetration of the radiographic beam status quo. The technique utilized in obtaining the radiograph has magnified the cardiac silhouette and accentuated the interstitial markings. The superior mediastinal structures are midline. The cardiac silhouette is unremarkable in size, shape, and position. The diaphragmatic surfaces of the lungs are regular, and the costophrenic angles are clear. The pulmonary freeman are clear. The imaged osseous structures are intact. IMPRESSION: There is no acute cardiopulmonary disease. No change from the prior exam. Electronically Signed by Fransisco Matthews DO 02/12/2020 04:56 P
== END ==
PROVIDERS: ATTEND Internal Medicine
DX: R09.02 Hypoxemia (principal)

== ENCOUNTER → 2020-02-13 | Outpatient (REF) | payer MEDICARE, MEDICAID | PROVIDERS: ATTEND Internal Medicine | DX: E87.6 Hypokalemia (principal) ==

== ENCOUNTER → 2020-02-17 | Outpatient (REF) | payer MEDICARE, MEDICAID ==
[2020-02-17 09:34] LABS: BASO # 0.1 10^3/uL (0.0-0.2); BASO % 0.6 % (0.0-1.0); EOS # 0.3 10^3/uL (0.0-0.5); EOS % 3.6 % (0.0-3.0); HEMATOCRIT 37.2 % (36.0-47.0); HEMOGLOBIN 11.6 g/dl (12.0-15.5); LYMPH # 0.9 10^3/uL (1.5-5.0); LYMPH % 11.3 % (24.0-44.0); MEAN CORPUSCULAR HEMOGLOBIN 31.4 pg (27.0-33.0); MEAN CORPUSCULAR HGB CONC 31.2 g/dl (32.0-36.5); MEAN CORPUSCULAR VOLUME 100.8 fl (80.0-96.0); MONO # 0.6 10^3/uL (0.0-0.8); MONO % 7.2 % (0.0-5.0); NEUTROPHILS # 5.9 10^3/uL (1.5-8.5); NEUTROPHILS % 76.3 % (36.0-66.0); PLATELET COUNT, AUTOMATED 180 10^3/uL (150-450); RED BLOOD COUNT 3.69 10^6/uL (4.00-5.40); WHITE BLOOD COUNT 7.7 10^3/uL (4.0-10.0)
[2020-02-17 10:33] LABS: ALBUMIN 2.9 GM/DL (3.2-5.2); CALCIUM LEVEL 8.9 MG/DL (8.8-10.2); CREATININE FOR GFR 1.27 MG/DL (0.55-1.30); GLOMERULAR FILTRATION RATE 42.9 (>32); MAGNESIUM LEVEL 1.6 MG/DL (1.8-2.4); POTASSIUM SERUM 3.7 MEQ/L (3.5-5.1)
[2020-02-17 10:39] LABS: PTH INTACT 28.9 PG/ML (18.5-88.0); TOTAL 25(OH) VITAMIN D 53.4 NG/ML (30.0-100.0)
== END ==
PROVIDERS: ATTEND Nurse Practitioner Adult Health
DX: N18.9 Chronic kidney disease, unspecified (principal); Z79.899 Other long term (current) drug therapy

== ENCOUNTER → 2020-02-18 | Outpatient (REF) | payer MEDICARE, MEDICAID ==
[2020-02-18 13:25] LABS: APPEARANCE, URINE HAZY (CLEAR); BACTERIA, URINE AUTO 1+ (NEGATIVE); BILIRUBIN, URINE AUTO NEGATIVE (NEGATIVE); BLOOD, URINE BLOOD NEGATIVE (NEGATIVE); COLOR, URINE YELLOW (YELLOW); GLUCOSE, URINE (UA) AUTO NEGATIVE (NEGATIVE); KETONE, URINE AUTO NEGATIVE (NEGATIVE); LEUKOCYTE ESTERASE, URINE AUTO 2+ (NEGATIVE); NITRITE, URINE AUTO POSITIVE (NEGATIVE); PROTEIN, URINE AUTO NEGATIVE (NEGATIVE); RBC, URINE AUTO 1 /HPF (0-3); SPECIFIC GRAVITY URINE AUTO 1.009 (1.002-1.035); SQUAMOUS EPITHELIAL CELL UR AU 1 /HPF (0-6); UROBILINOGEN, URINE AUTO 0.2 mg/dL (0.0-2.0); WBC, URINE AUTO 40 /HPF (0-3)
== END ==
PROVIDERS: ATTEND Nurse Practitioner Adult Health
DX: N18.9 Chronic kidney disease, unspecified (principal); Z79.899 Other long term (current) drug therapy

== ENCOUNTER → 2020-02-21 | Outpatient (REF) | payer MEDICARE, MEDICAID | PROVIDERS: ATTEND Internal Medicine | DX: E87.6 Hypokalemia (principal); Z79.899 Other long term (current) drug therapy ==

== ENCOUNTER → 2020-03-30 | Outpatient (CLI) | payer MEDICARE, MEDICAID ==
--- NOTE | 2020-04-01 02:34 | ECWPNPC ---
PATIENT NAME: PATEL TARANGO : 1935 GENDER: FEMALE VISIT DATE: 03/30/2020 DISCHARGE DATE: 03/30/20 1154 VISIT LOCKED DATE TIME: PHYSICIAN: ELVI BELLA RESOURCE: ELVI BELLA REASON FOR APPOINTMENT 1. NECK PAIN, NEW MEDICATION, CERVICAL MRI HISTORY OF PRESENT ILLNESS GENERAL: - 84-YEAR-OLD FEMALE IN FOR CHRONIC PAIN FOLLOW-UP. AT LAST CLINIC VISIT PATIENT WAS STARTED ON TIZANIDINE AND SHE DOES NOT FEEL THIS HAS BEEN HELPFUL. SHE RATES HER PAIN CURRENTLY AT AN 8 OUT OF 10 AND DESCRIBES IT CONTINUOUS. PATIENT HAD TRIGGER POINT INJECTIONS IN JANUARY WITH GOOD RESULTS AND WE WILL DISCUSS REPEAT PROCEDURES TODAY. FALL RISK SCREENING: SCREENING :NO FALLS REPORTED IN THE LAST YEAR PAIN SCREENING: PATIENT HAS A COMPLAINT OF ACUTE OR CHRONIC PAIN :YES LOCATION OF PAIN:NECK RADIATES TO RIGHT ARM INTENSITY OF PAIN (SCALE OF 1 TO 10):8 WHAT DOES YOUR PAIN FEEL LIKE:CONTINOUS DURATION:CONTINOUS, CONSTANT, ALL DAY PAIN IS INCREASED BY:ACTIVITIES PAIN IS DECREASED BY:USE OF PAIN MEDICATIONS PLAN/GOALS/TREATMENT/INTERVENTION/FOLLOW UP:SEE PLAN NURSING NOTE: -. PAIN CENTER INTAKE QUESTIONS: DO YOU HAVE A HISTORY OF MRSA? :NO DO YOU TAKE A BLOOD THINNERS? :NO DO YOU HAVE ANY BLEEDING DISORDERS? :NO ANY NEW NUMBNESS OR WEAKNESS IN YOUR LEGS OR ARMS? :NO ANY PACEMAKER,DEFIBRILLATOR, OR DORSAL COLUMN STIMULATOR? :NO DO YOU HAVE ANY RASHES OR OPEN SORES? :NO ARE YOU ALLERGIC TO IV DYE? :NO ARE YOU DIABETIC? :YES ANY NEW PROBLEMS WITH YOUR MEDICATIONS? :NO HAVE YOU RECEIVED A VACCINE IN THE PAST 30 DAYS? :NO DO YOU PLAN TO RECEIVE A VACCINE IN THE NEXT 21 DAYS? :NO DO YOU NEED ANY PRESCRIPTION? :NO DO YOU TAKE ANY IMMUNOSUPPRESSIVE MEDICATIONS? :NO IS THERE A CHANCE YOU COULD BE ? :NO ARE YOU BREAST FEEDING? :NO CURRENT MEDICATIONS TAKING LASIX 40 MG TABLET 1 TABLET ORALLY Q AM, NOTES: 01/27/20 TAKING FUROSEMIDE 20 MG TABLET 1 TABLET ORALLY Q AFTERNOON, NOTES: 01/27/20 TAKING NEURONTIN 600 MG TABLET 1 TABLET ORALLY QID, NOTES: 01/27/20 TAKING OXYCODONE HCL 20 MG TABLET EXTENDED RELEASE 12 HOUR 1 TABLET ORALLY EVERY 12 HRS, NOTES: 01/27/20 TAKING POTASSIUM CHLORIDE 10 MEQ CAPSULE EXTENDED RELEASE 2 CAPSULE ORALLY DAILY, NOTES: 01/27/20 TAKING PRAVACHOL 40 MG TABLET 1 TABLET ORALLY ONCE A DAY, NOTES: 01/27/20 TAKING SENNA S 8.6-50 MG TABLET 1 TABLET IN THE EVENING NEEDED ORALLY BID, NOTES: 01/27/20 TAKING ALDACTONE 25 MG TABLET 1 TABLET ORALLY DAILY, NOTES: 01/27/20 TAKING ULTRAM 50 MG TABLET 1 TABLET NEEDED ORALLY EVERY 6 HRS, NOTES: 01/27/20 TAKING EFFEXOR XR 150 MG CAPSULE EXTENDED RELEASE 24 HOUR 1 CAPSULE WITH FOOD ORALLY BID, NOTES: 01/27/20 TAKING VITAMIN D 5000 UNIT CAPSULE 1 CAPSULE ORALLY ONCE A DAY, NOTES: 01/27/20 TAKING ATIVAN 0.5 MG TABLET 1 TABLET AT BEDTIME NEEDED ORALLY BID, NOTES: 01/27/20 TAKING AMARYL 4 MG TABLET 1 TABLET WITH BREAKFAST OR THE FIRST MAIN MEAL OF THE DAY ORALLY ONCE A DAY, NOTES: 01/27/20 TAKING ANUCORT-HC 25 MG SUPPOSITORY 1 SUPPOSITORY RECTAL TWICE A DAY PRN, NOTES: 01/27/20 TAKING TYLENOL 325 MG TABLET 2 TABLET NEEDED ORALLY EVERY 6 HRS PRN, NOTES: 01/27/20 TAKING ARTIFICIAL TEARS ? SOLUTION DIRECTED OPHTHALMIC , NOTES: 01/28/20 AM TAKING DUONEB 0.5-2.5 (3) MG/3ML SOLUTION 3 ML INHALATION Q 6HRS PRN, NOTES: 01/27/20 TAKING SALINE 0.65 % SOLUTION 1 SPRAY EACH NOSTRIL NEEDED NASALLY BID PRN, NOTES: 01/27/20 TAKING VENTOLIN HFA 108 (90 BASE) MCG/ACT AEROSOL SOLUTION 2 PUFFS INHALATION TID PRN, NOTES: 01/27/20 TAKING VENLAFAXINE HCL ER 225 MG TABLET EXTENDED RELEASE 24 HOUR 1 TABLET WITH FOOD ORALLY ONCE A DAY, NOTES: 112.5MG DAILY 01/27/20 TAKING ARTIFICIAL TEARS 1.4 % SOLUTION DIRECTED OPHTHALMIC , NOTES: 01/28/20 AM TAKING ABILIFY 20 MG TABLET 1 TABLET ORALLY ONCE A DAY, NOTES: 01/27/20 TAKING CALCITRIOL 0.25 MCG CAPSULE 1 CAPSULE ORALLY ONCE A DAY, NOTES: 01/27/20 TAKING CARVEDILOL 6.25 MG TABLET 1 TABLET WITH FOOD ORALLY TWICE A DAY, NOTES: 01/27/20 TAKING DULOXETINE HCL 60 MG CAPSULE DELAYED RELEASE PARTICLES 1 CAPSULE ORALLY ONCE A DAY, NOTES: 01/27/20 TAKING GABAPENTIN 800 MG TABLET 1 TABLET ORALLY ONCE A DAY, NOTES: 01/27/20 TAKING HUMALOG KWIKPEN 100 UNIT/ML SOLUTION PEN-INJECTOR DIRECTED SUBCUTANEOUS , NOTES: 01/27/20 TAKING SYMBICORT 160-4.5 MCG/ACT AEROSOL 2 PUFFS INHALATION TWICE A DAY, NOTES: 01/27/20 TAKING SENNA 8.6 MG TABLET 2 TABLETS AT BEDTIME NEEDED ORALLY ONCE A DAY, NOTES: 01/27/20 TAKING ACETAMINOPHEN 500 MG TABLET 2 TABLETS ORALLY EVERY 6 HOURS NEEDED (MDD 3000 MG), NOTES: 01/27/20 TAKING PRAVASTATIN SODIUM 40 MG TABLET 1 TABLET ORALLY ONCE A DAY, NOTES: 01/27/20 TAKING ASPIR-LOW 81 MG TABLET DELAYED RELEASE 1 TABLET ORALLY ONCE A DAY, NOTES: 01/27/20 TAKING SYMBICORT 160-4.5 MCG/ACT AEROSOL 2 PUFFS INHALATION TWICE A DAY, NOTES: 01/27/20 TAKING LEVOTHYROXINE SODIUM 100 MCG TABLET 1 TABLET IN THE MORNING ON AN EMPTY STOMACH ORALLY ONCE A DAY, NOTES: 01/27/20 TAKING LATANOPROST 0.005 % SOLUTION 1 DROP INTO AFFECTED EYE IN THE EVENING OPHTHALMIC ONCE A DAY, NOTES: 01/27/20 TAKING LASIX 40 MG TABLET 1 TABLET ORALLY ONCE A DAY, NOTES: 01/27/20 TAKING ASPERCREME LIDOCAINE 4 % PATCH DIRECTED EXTERNALLY , NOTES: 01/28/20 TAKING LIDODERM 5 % PATCH 1 PATCH REMOVE AFTER 12 HOURS EXTERNALLY ONCE A DAY, NOTES: 01/27/20 TAKING FENTANYL 50 MCG/HR PATCH 72 HOUR 1 PATCH TO SKIN TRANSDERMAL , NOTES: 01/28/20 AM TAKING TIZANIDINE HCL 2 MG TABLET 1 TABLET NEEDED ORALLY TWICE DAILY NEEDED MEDICATION LIST REVIEWED AND RECONCILED WITH THE PATIENT PAST MEDICAL HISTORY COPD DEPRESSION ESOPHAGEAL REFLUX HYPERTENSION CAD OBESITY DIABETES MELLITUS SLEEP APNEA OSTEOARTHRITIS ANEMIA OSTEOPOROSIS GLAUCOMA RETINOPATHY ANXIETY CONSTIPATION BILATERAL NEUROPATHY LEGS ALLERGIES N.K.D.A. SURGICAL HISTORY CARDIAC CATHETERIZATION 12/2004 BILATERAL KNEE REPLACEMENT BREAST BIOSPY CHOLECYSTECTOMY FAMILY HISTORY FATHER: 97 YRS, [place], DIABETES MOTHER: 82 YRS, HEART ATTACK NO FAMILY HX OF BLADDER OR KIDNEY CA. SOCIAL HISTORY GENERAL: TOBACCO USE ARE YOU A:: NEVER SMOKER. LATEX QUESTIONNAIRE LATEX ALLERGY : HAVE YOU EVER DEVELOPED ANY TYPE OF REACTION AFTER HANDLING LATEX PRODUCTS SUCH RUBBER GLOVES, CONDOMS, DIAPHRAGMS, BALLOONS, SOCKS, OR UNDERWEAR?NO LATEX ALLERGY : HAVE YOU EVER DEVELOPED ANY TYPE OF REACTION DURING OR AFTER DENTAL APPOINTMENT, VAGINAL/RECTAL EXAMINATION, SURGICAL PROCEDURE, OR ANY OTHER EXPOSURE?NO LATEX RISK : HAVE YOU EVER HAD ANY DIFFICULTY BREATHING OR HIVES AFTER EATING OR HANDLING ANY FRUITS, OR VEGETABLES; SUCH KIWI, BANANAS, STONE FRUITS, OR CHESTNUTSNO LATEX RISK : DO YOU HAVE A PREVIOUS PERSONAL HISTORY OF MORE THAN NINE SURGERIES, SPINA BIFIDA, OR REPEATED CATHERIZATIONS? NO LATEX RISK : ARE YOU FREQUENTLY EXPOSED TO LATEX PRODUCTS IN YOUR OCCUPATION?NO DATE ASKED : 03/30/2020 RECREATIONAL DRUG USE DENIES. CAFFEINE 2-5/DAY. EXERCISE: NONE. MARITAL STATUS: SINGLE. NEW PATIENT PAIN DIARY TODAY'S VISIT 01/28/20 FROM 0-10, WHAT LEVEL IS YOUR PAIN TODAY?10 PRECIPITATING FACTORS ACTIVITY ALLEVIATING FACTORS REST, MEDS IMPACT ON FUNCTION YES PAIN CLINIC PFS, CLERGY, PUBLIC HEALTH REFERRALS HAS THE PATIENT BEEN EDUCATED REGARDING HIS/HER PLAN OF CARE?YES HAS THE PATIENT BEEN EDUCATED REGARDING PAIN, THE RISK FOR PAIN, THE IMPORTANCE OF EFFECTIVE PAIN MANAGEMENT, AND THE PAIN ASSESSMENT PROCESS?YES ADVANCE DIRECTIVE ADVANCE DIRECTIVE DISCUSSED WITH PATIENT:YES DECLINED HOSPITALIZATION/MAJOR DIAGNOSTIC PROCEDURE NO HOSPITALIZATION HISTORY. REVIEW OF SYSTEMS CONSTITUTIONAL: ANY RECENT FEVER NO . CHILLS NO . WEIGHT CHANGE OF UNKNOWN REASONS NO . GASTROENTEROLOGY: NEW UNEXPLAINABLE CHANGES IN BOWEL CONTROL NO . CONSTIPATION NO . GENITOURINARY: ANY NEW CHANGE IN BLADDER CONTROL? NO . NEUROLOGY: NEW ONSET DIZZINESS OR NEUROLOGICAL CHANGES NOT MENTIONED NO . NEW NUMBNESS OR PAIN PATTERNS NOT MENTIONED AND PERTINENT TO TODAY'S VISIT NO . CARDIOLOGY: NEW CHEST PRESSURE NO . NEW CHEST PAIN NO . RESPIRATORY: UNEXPLAINABLE COUGH NO . NEW SHORTNESS OF BREATH NO . VITAL SIGNS WT 217.4 LBS, HT 5'6", BMI 35.09 INDEX, BP 122/67 MM HG, HR 87 /MIN, RR 18 /MIN, TEMP 96.9 F, OXYGEN SAT % 91%, SAFE IN ENV? 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 EXAMINATION GENERAL EXAMINATION: GENERALNO ACUTE DISTRESS, WELL NOURISHED AND HYDRATED. PSYCHAPPROPRIATE MOOD AND AFFECT . LUNGS:CLEAR TO AUSCULTATION BILATERALLY, NO WHEEZES, RHONCHI, RALES. HEART:NO MURMURS, REGULAR RATE AND RHYTHM. BACK: POINT TENDER RIGHT SHOULDER, SURROUNDING SKIN SHOWS NO ERYTHEMA, ECCHYMOSIS, INCREASED WARMTH, AND/OR SKIN ERUPTIONS NOTED. BANDS OF RESTRICTIVE TISSUE NOTED OVER TRIGGER POINTS. . ASSESSMENTS MYALGIA, OTHER SITE - M79.18 (PRIMARY) TREATMENT MYALGIA, OTHER SITE CLINICAL NOTES: 84-YEAR-OLD FEMALE IN FOR CHRONIC PAIN FOLLOW-UP. GIVEN PRESENTING SYMPTOMS RECOMMENDED TPI OF THE RIGHT SHOULDER WITH POSTPROCEDURAL FOLLOW-UP. PATIENT HAS EXPRESSED UNDERSTANDING OF AND WAS IN AGREEMENT WITH TREATMENT PLAN. GIVEN TIME TO ASK QUESTIONS AND EXPRESS CONCERNS. OTHERS NOTES: TRIGGER POINT INJECTION MATERIAL WAS PRINTED. PROCEDURE CODES FA211 ESTABILISHED PATIENT [facility] CHARGE DISPOSITION & COMMUNICATION FOLLOW UP POSTPROCEDURE (REASON: TPI RIGHT SHOULDER) ELECTRONICALLY SIGNED BY JOSE GERMAN ON 03/31/2020 AT 02:52 PM EDT DISCLAIMER : THIS IS A VISIT SUMMARY EXTRACTED FROM THE [employer] CHART. IT IS NOT A COPY OF THE [employer] PROGRESS NOTE. STARR
== END ==
LOC: M PAIN 11:15
PROVIDERS: ATTEND Family Medicine
DX: M79.18 Myalgia, other site (principal)

== ENCOUNTER → 2020-04-01 | Outpatient (REF) | PROVIDERS: ATTEND Internal Medicine | DX: M10.9 Gout, unspecified (principal) ==

== ENCOUNTER → 2020-04-06 | Outpatient (REF) | PROVIDERS: ATTEND Nurse Practitioner Adult Health | DX: M10.9 Gout, unspecified (principal) ==

== ENCOUNTER → 2020-04-15 | Outpatient (REF) | PROVIDERS: ATTEND Physician Assistant | DX: Z20.828 Contact with and (suspected) exposure to other viral communicable diseases (principal) ==

== ENCOUNTER → 2020-04-20 | Outpatient (POV) | payer MEDICARE, MEDICAID ==
[~2020-04-20] MED LIST changes: +BUPIVACAINE HCL 0.25% 10ML VIAL ONE; +BUPIVACAINE HCL 0.25% 30ML VIAL ONE; +TRIAMCINOLONE ACETONIDE SUSP 40 MG/ML VIAL (J3301) ONE
== END ==
LOC: M PAIN 11:45
PROVIDERS: ATTEND Anesthesiology
DX: M79.18 Myalgia, other site (principal)

== ENCOUNTER → 2020-05-17 | Outpatient (REF) | payer MEDICARE, MEDICAID ==
[~2020-05-17] MED LIST changes: -BUPIVACAINE HCL 0.25% 10ML VIAL ONE; -BUPIVACAINE HCL 0.25% 30ML VIAL ONE; -TRIAMCINOLONE ACETONIDE SUSP 40 MG/ML VIAL (J3301) ONE
== END ==
PROVIDERS: ATTEND Nurse Practitioner Adult Health
DX: Z11.59 Encounter for screening for other viral diseases (principal); Z01.818 Encounter for other preprocedural examination

== ENCOUNTER → 2020-05-22 | Outpatient (CLI) | payer MEDICARE, MEDICAID ==
[~2020-05-22] MED LIST changes: +BUPIVACAINE HCL 0.25% 10ML VIAL As Ordered ONE; +BUPIVACAINE HCL 0.25% 30ML VIAL As Ordered ONE
== END ==
LOC: M PAIN 08:17
PROVIDERS: ATTEND Anesthesiology
DX: M79.18 Myalgia, other site (principal)
CPT/HCPCS: 20552; G0463

== ENCOUNTER → 2020-05-25 | Outpatient (REF) | payer MEDICARE, MEDICAID ==
[~2020-05-25] MED LIST changes: -BUPIVACAINE HCL 0.25% 10ML VIAL As Ordered ONE; -BUPIVACAINE HCL 0.25% 30ML VIAL As Ordered ONE
[2020-05-25 11:04] LABS: HEMATOCRIT 37.4 % (36.0-47.0); HEMOGLOBIN 11.4 g/dl (12.0-15.5); MEAN CORPUSCULAR HEMOGLOBIN 32.1 pg (27.0-33.0); MEAN CORPUSCULAR HGB CONC 30.5 g/dl (32.0-36.5); MEAN CORPUSCULAR VOLUME 105.4 fl (80.0-96.0); PLATELET COUNT, AUTOMATED 150 10^3/uL (150-450); RED BLOOD COUNT 3.55 10^6/uL (4.00-5.40); WHITE BLOOD COUNT 6.2 10^3/uL (4.0-10.0)
[2020-05-25 11:45] LABS: BILIRUBIN,TOTAL 0.4 MG/DL (0.2-1.0); CALCIUM LEVEL 9.1 MG/DL (8.8-10.2); CHOLESTEROL RISK RATIO 2.558 (<5); CREATININE FOR GFR 1.35 MG/DL (0.55-1.30); THYROID STIMULATING HORMONE 3.48 uIU/ML (0.358-3.740); TOTAL PROTEIN 6.2 GM/DL (6.4-8.2)
[2020-05-25 12:46] LABS: HEMOGLOBIN A1c 6.8 %
== END ==
PROVIDERS: ATTEND Internal Medicine
DX: E11.9 Type 2 diabetes mellitus without complications (principal)

== ENCOUNTER → 2020-06-10 | Outpatient (CLI) | payer MEDICARE, MEDICAID ==
--- NOTE | 2020-06-11 10:39 | ECWPNPC ---
PATIENT NAME: PATEL TARANGO : 1935 GENDER: FEMALE VISIT DATE: 06/10/2020 DISCHARGE DATE: 06/10/20 1106 VISIT LOCKED DATE TIME: PHYSICIAN: ELVI BELLA RESOURCE: ELVI BELLA REASON FOR APPOINTMENT 1. POST TPI-RIGHT SHOULDER HISTORY OF PRESENT ILLNESS DEPRESSION SCREENING: PHQ-2 (2015 EDITION) LITTLE INTEREST OR PLEASURE IN DOING THINGS?NOT AT ALL FEELING DOWN, DEPRESSED, OR HOPELESS?NOT AT ALL TOTAL SCORE0 84-YEAR-OLD FEMALE IN FOR POST TPI FOLLOW-UP. SHE FEELS THE PROCEDURE WAS UNSUCCESSFUL. SHE RATES HER PAIN CURRENTLY AT A 10 OUT OF 10. GENERAL: -. FALL RISK SCREENING: SCREENING :NO FALLS REPORTED IN THE LAST YEAR PAIN SCREENING: PATIENT HAS A COMPLAINT OF ACUTE OR CHRONIC PAIN :YES LOCATION OF PAIN:RIGHT SHOULDER INTENSITY OF PAIN (SCALE OF 1 TO 10):5 WHAT DOES YOUR PAIN FEEL LIKE:ACHING, CONTINOUS DURATION:CONTINOUS, ALL DAY PAIN IS INCREASED BY:ACTIVITIES PAIN IS DECREASED BY:USE OF PAIN MEDICATIONS NURSING NOTE: -. PAIN CENTER INTAKE QUESTIONS: DO YOU HAVE A HISTORY OF MRSA? :NO DO YOU TAKE A BLOOD THINNERS? :NO DO YOU HAVE ANY BLEEDING DISORDERS? :NO ANY NEW NUMBNESS OR WEAKNESS IN YOUR LEGS OR ARMS? :NO ANY PACEMAKER,DEFIBRILLATOR, OR DORSAL COLUMN STIMULATOR? :NO DO YOU HAVE ANY RASHES OR OPEN SORES? :YES LEFT ARM OPEN SORE ARE YOU ALLERGIC TO IV DYE? :NO ARE YOU DIABETIC? :YES PT TAKES INSULIN ANY NEW PROBLEMS WITH YOUR MEDICATIONS? :NO HAVE YOU RECEIVED A VACCINE IN THE PAST 30 DAYS? :NO DO YOU PLAN TO RECEIVE A VACCINE IN THE NEXT 21 DAYS? :YES PT STATES SHE DOES NOT RECALL IF SHE HAS ALREADY HAD THE FLU SHOT THIS YEAR, BUT DOES PLAN TO GET IT IF SHE HAS NOT. DO YOU NEED ANY PRESCRIPTION? :NO DO YOU TAKE ANY IMMUNOSUPPRESSIVE MEDICATIONS? :NO IS THERE A CHANCE YOU COULD BE ? :NO ARE YOU BREAST FEEDING? :NO CURRENT MEDICATIONS TAKING LASIX 40 MG TABLET 1 TABLET ORALLY Q AM, NOTES: 01/27/20 TAKING FUROSEMIDE 20 MG TABLET 1 TABLET ORALLY Q AFTERNOON, NOTES: 01/27/20 TAKING NEURONTIN 600 MG TABLET 1 TABLET ORALLY QID, NOTES: 01/27/20 TAKING OXYCODONE HCL 20 MG TABLET EXTENDED RELEASE 12 HOUR 1 TABLET ORALLY EVERY 12 HRS, NOTES: 01/27/20 TAKING POTASSIUM CHLORIDE 10 MEQ CAPSULE EXTENDED RELEASE 2 CAPSULE ORALLY DAILY, NOTES: 01/27/20 TAKING PRAVACHOL 40 MG TABLET 1 TABLET ORALLY ONCE A DAY, NOTES: 01/27/20 TAKING SENNA S 8.6-50 MG TABLET 1 TABLET IN THE EVENING NEEDED ORALLY BID, NOTES: 01/27/20 TAKING ALDACTONE 25 MG TABLET 1 TABLET ORALLY DAILY, NOTES: 01/27/20 TAKING ULTRAM 50 MG TABLET 1 TABLET NEEDED ORALLY EVERY 6 HRS, NOTES: 01/27/20 TAKING EFFEXOR XR 150 MG CAPSULE EXTENDED RELEASE 24 HOUR 1 CAPSULE WITH FOOD ORALLY BID, NOTES: 01/27/20 TAKING VITAMIN D 5000 UNIT CAPSULE 1 CAPSULE ORALLY ONCE A DAY, NOTES: 01/27/20 TAKING ATIVAN 0.5 MG TABLET 1 TABLET AT BEDTIME NEEDED ORALLY BID, NOTES: 01/27/20 TAKING AMARYL 4 MG TABLET 1 TABLET WITH BREAKFAST OR THE FIRST MAIN MEAL OF THE DAY ORALLY ONCE A DAY, NOTES: 01/27/20 TAKING ANUCORT-HC 25 MG SUPPOSITORY 1 SUPPOSITORY RECTAL TWICE A DAY PRN, NOTES: 01/27/20 TAKING TYLENOL 325 MG TABLET 2 TABLET NEEDED ORALLY EVERY 6 HRS PRN, NOTES: 01/27/20 TAKING ARTIFICIAL TEARS ? SOLUTION DIRECTED OPHTHALMIC , NOTES: 01/28/20 AM TAKING DUONEB 0.5-2.5 (3) MG/3ML SOLUTION 3 ML INHALATION Q 6HRS PRN, NOTES: 01/27/20 TAKING SALINE 0.65 % SOLUTION 1 SPRAY EACH NOSTRIL NEEDED NASALLY BID PRN, NOTES: 01/27/20 TAKING VENTOLIN HFA 108 (90 BASE) MCG/ACT AEROSOL SOLUTION 2 PUFFS INHALATION TID PRN, NOTES: 01/27/20 TAKING VENLAFAXINE HCL ER 225 MG TABLET EXTENDED RELEASE 24 HOUR 1 TABLET WITH FOOD ORALLY ONCE A DAY, NOTES: 112.5MG DAILY 01/27/20 TAKING ARTIFICIAL TEARS 1.4 % SOLUTION DIRECTED OPHTHALMIC , NOTES: 01/28/20 AM TAKING ABILIFY 20 MG TABLET 1 TABLET ORALLY ONCE A DAY, NOTES: 01/27/20 TAKING CALCITRIOL 0.25 MCG CAPSULE 1 CAPSULE ORALLY ONCE A DAY, NOTES: 01/27/20 TAKING CARVEDILOL 6.25 MG TABLET 1 TABLET WITH FOOD ORALLY TWICE A DAY, NOTES: 01/27/20 TAKING DULOXETINE HCL 60 MG CAPSULE DELAYED RELEASE PARTICLES 1 CAPSULE ORALLY ONCE A DAY, NOTES: 01/27/20 TAKING GABAPENTIN 800 MG TABLET 1 TABLET ORALLY ONCE A DAY, NOTES: 01/27/20 TAKING HUMALOG KWIKPEN 100 UNIT/ML SOLUTION PEN-INJECTOR DIRECTED SUBCUTANEOUS , NOTES: 01/27/20 TAKING SYMBICORT 160-4.5 MCG/ACT AEROSOL 2 PUFFS INHALATION TWICE A DAY, NOTES: 01/27/20 TAKING SENNA 8.6 MG TABLET 2 TABLETS AT BEDTIME NEEDED ORALLY ONCE A DAY, NOTES: 01/27/20 TAKING ACETAMINOPHEN 500 MG TABLET 2 TABLETS ORALLY EVERY 6 HOURS NEEDED (MDD 3000 MG), NOTES: 01/27/20 TAKING PRAVASTATIN SODIUM 40 MG TABLET 1 TABLET ORALLY ONCE A DAY, NOTES: 01/27/20 TAKING ASPIR-LOW 81 MG TABLET DELAYED RELEASE 1 TABLET ORALLY ONCE A DAY, NOTES: 01/27/20 TAKING SYMBICORT 160-4.5 MCG/ACT AEROSOL 2 PUFFS INHALATION TWICE A DAY, NOTES: 01/27/20 TAKING LEVOTHYROXINE SODIUM 100 MCG TABLET 1 TABLET IN THE MORNING ON AN EMPTY STOMACH ORALLY ONCE A DAY, NOTES: 01/27/20 TAKING LATANOPROST 0.005 % SOLUTION 1 DROP INTO AFFECTED EYE IN THE EVENING OPHTHALMIC ONCE A DAY, NOTES: 01/27/20 TAKING LASIX 40 MG TABLET 1 TABLET ORALLY ONCE A DAY, NOTES: 01/27/20 TAKING ASPERCREME LIDOCAINE 4 % PATCH DIRECTED EXTERNALLY , NOTES: 01/28/20 TAKING LIDODERM 5 % PATCH 1 PATCH REMOVE AFTER 12 HOURS EXTERNALLY ONCE A DAY, NOTES: 01/27/20 TAKING FENTANYL 50 MCG/HR PATCH 72 HOUR 1 PATCH TO SKIN TRANSDERMAL , NOTES: 01/28/20 AM TAKING TIZANIDINE HCL 2 MG TABLET 1 TABLET NEEDED ORALLY TWICE DAILY NEEDED TAKING DICLOFENAC SODIUM 3 % GEL 1 APPLICATION TRANSDERMAL TWICE A DAY TAKING VOLTAREN 1 % GEL DIRECTED TRANSDERMAL TAKING ALLOPURINOL 100 MG TABLETS ONE TAB ORALLY DAILY MEDICATION LIST REVIEWED AND RECONCILED WITH THE PATIENT PAST MEDICAL HISTORY COPD DEPRESSION ESOPHAGEAL REFLUX HYPERTENSION CAD OBESITY DIABETES MELLITUS SLEEP APNEA OSTEOARTHRITIS ANEMIA OSTEOPOROSIS GLAUCOMA RETINOPATHY ANXIETY CONSTIPATION BILATERAL NEUROPATHY LEGS ALLERGIES N.K.D.A. SURGICAL HISTORY CARDIAC CATHETERIZATION 12/2004 BILATERAL KNEE REPLACEMENT BREAST BIOSPY CHOLECYSTECTOMY FAMILY HISTORY FATHER: 97 YRS, PARKINSONS, DIABETES MOTHER: 82 YRS, HEART ATTACK NO FAMILY HX OF BLADDER OR KIDNEY CA. SOCIAL HISTORY GENERAL: TOBACCO USE ARE YOU A:: NEVER SMOKER. LATEX QUESTIONNAIRE LATEX ALLERGY : HAVE YOU EVER DEVELOPED ANY TYPE OF REACTION AFTER HANDLING LATEX PRODUCTS SUCH RUBBER GLOVES, CONDOMS, DIAPHRAGMS, BALLOONS, SOCKS, OR UNDERWEAR?NO LATEX ALLERGY : HAVE YOU EVER DEVELOPED ANY TYPE OF REACTION DURING OR AFTER DENTAL APPOINTMENT, VAGINAL/RECTAL EXAMINATION, SURGICAL PROCEDURE, OR ANY OTHER EXPOSURE?NO LATEX RISK : HAVE YOU EVER HAD ANY DIFFICULTY BREATHING OR HIVES AFTER EATING OR HANDLING ANY FRUITS, OR VEGETABLES; SUCH KIWI, BANANAS, STONE FRUITS, OR CHESTNUTSNO LATEX RISK : DO YOU HAVE A PREVIOUS PERSONAL HISTORY OF MORE THAN NINE SURGERIES, SPINA BIFIDA, OR REPEATED CATHERIZATIONS? NO LATEX RISK : ARE YOU FREQUENTLY EXPOSED TO LATEX PRODUCTS IN YOUR OCCUPATION?NO DATE ASKED : 06/10/2020 ALCOHOL SCREENING DID YOU HAVE A DRINK CONTAINING ALCOHOL IN THE PAST YEAR?NO POINTS0 INTERPRETATIONNEGATIVE RECREATIONAL DRUG USE DENIES. CAFFEINE 2-5/DAY. DOMESTIC VIOLENCE DO YOU FEEL SAFE IN YOUR ENVIRONMENT?YES EXERCISE: NONE. MARITAL STATUS: SINGLE. NEW PATIENT PAIN DIARY TODAY'S VISIT 01/28/20 FROM 0-10, WHAT LEVEL IS YOUR PAIN TODAY?10 PRECIPITATING FACTORS ACTIVITY ALLEVIATING FACTORS REST, MEDS IMPACT ON FUNCTION YES PAIN CLINIC PFS, CLERGY, PUBLIC HEALTH REFERRALS HAS THE PATIENT BEEN EDUCATED REGARDING HIS/HER PLAN OF CARE?YES HAS THE PATIENT BEEN EDUCATED REGARDING PAIN, THE RISK FOR PAIN, THE IMPORTANCE OF EFFECTIVE PAIN MANAGEMENT, AND THE PAIN ASSESSMENT PROCESS?YES ADVANCE DIRECTIVE ADVANCE DIRECTIVE DISCUSSED WITH PATIENT:YES DECLINED HOSPITALIZATION/MAJOR DIAGNOSTIC PROCEDURE NO HOSPITALIZATION HISTORY. REVIEW OF SYSTEMS CONSTITUTIONAL: ANY RECENT FEVER NO . CHILLS NO . WEIGHT CHANGE OF UNKNOWN REASONS NO . GASTROENTEROLOGY: NEW UNEXPLAINABLE CHANGES IN BOWEL CONTROL NO . CONSTIPATION NO . GENITOURINARY: ANY NEW CHANGE IN BLADDER CONTROL? NO . NEUROLOGY: NEW ONSET DIZZINESS OR NEUROLOGICAL CHANGES NOT MENTIONED NO . NEW NUMBNESS OR PAIN PATTERNS NOT MENTIONED AND PERTINENT TO TODAY'S VISIT NO . CARDIOLOGY: NEW CHEST PRESSURE NO . NEW CHEST PAIN NO . RESPIRATORY: UNEXPLAINABLE COUGH NO . NEW SHORTNESS OF BREATH NO . VITAL SIGNS WT 278 LBS, HT 5'6", BMI 44.87 INDEX, BP 114/87 MM HG, HR 88 /MIN, RR 18 /MIN, TEMP 96.1 F, OXYGEN SAT % 99%, NA INITIALS SC 10:33, REVIEWED BY: DM. EXAMINATION GENERAL EXAMINATION: GENERALNO ACUTE DISTRESS, WELL NOURISHED AND HYDRATED. PSYCHAPPROPRIATE MOOD AND AFFECT . LUNGS:LUNG SOUNDS DECREASED BILATERALLY . HEART:NO MURMURS, REGULAR RATE AND RHYTHM. ASSESSMENTS MYALGIA, OTHER SITE - M79.18 (PRIMARY) TREATMENT MYALGIA, OTHER SITE CLINICAL NOTES: 84-YEAR-OLD FEMALE IN FOR POST TPI FOLLOW-UP. GIVEN PRESENTING SYMPTOMS RECOMMEND REVIEW OF PREVIOUS MRI AND POTENTIALLY ORDERING ANOTHER MRI FOR FURTHER EVALUATION. PATIENT HAS EXPRESSED UNDERSTANDING OF AND WAS IN AGREEMENT WITH TREATMENT PLAN. GIVEN TIME TO ASK QUESTIONS AND EXPRESS CONCERNS. DISCUSSED PATIENT WITH DR. HAGAN AND HE WILL SEE HER IN FOLLOW UP. . OTHERS NOTES: TRIGGER POINT INJECTION MATERIAL WAS PRINTED. PREVENTIVE MEDICINE PAIN CLINIC TEACHING: THE PATIENT HAS BEEN EDUCATED REGARDING PAIN, THE RISK FOR PAIN, THE IMPORTANCE OF EFFECTIVE PAIN MANAGEMENT, AND THE PAIN ASSESSMENT PROCESS. : REVIEWED PLAN OF CARE WITH PT. PT ACKNOWLEDGED UNDERSTANDING. DISPOSITION & COMMUNICATION FOLLOW UP 4 WEEKS (REASON: POTENTIAL CERVICAL MRI) ELECTRONICALLY SIGNED BY JOSE GERMAN ON 06/11/2020 AT 10:38 AM EDT DISCLAIMER : THIS IS A VISIT SUMMARY EXTRACTED FROM THE [employer] CHART. IT IS NOT A COPY OF THE [employer] PROGRESS NOTE. STARR
== END ==
LOC: M PAIN 10:30
PROVIDERS: ATTEND Family Medicine
DX: M79.18 Myalgia, other site (principal); J44.9 Chronic obstructive pulmonary disease, unspecified; Z86.59 Personal history of other mental and behavioral disorders; I10 Essential (primary) hypertension; I25.10 Atherosclerotic heart disease of native coronary artery without angina pectoris; E11.9 Type 2 diabetes mellitus without complications; G47.30 Sleep apnea, unspecified; H40.9 Unspecified glaucoma; G62.9 Polyneuropathy, unspecified; Z96.653 Presence of artificial knee joint, bilateral; E66.01 Morbid (severe) obesity due to excess calories; Z68.41 Body mass index [BMI] 40.0-44.9, adult; Z79.4 Long term (current) use of insulin; Z79.82 Long term (current) use of aspirin; Z79.891 Long term (current) use of opiate analgesic; Z79.899 Other long term (current) drug therapy

== ENCOUNTER → 2020-06-16 | Outpatient (REF) ==
[2020-06-16 11:26] LABS: HEMOGLOBIN 9.7 g/dl (12.0-15.5); MEAN CORPUSCULAR HEMOGLOBIN 31.7 pg (27.0-33.0); MEAN CORPUSCULAR HGB CONC 30.3 g/dl (32.0-36.5); MEAN CORPUSCULAR VOLUME 104.6 fl (80.0-96.0); PLATELET COUNT, AUTOMATED 139 10^3/uL (150-450); RED BLOOD COUNT 3.06 10^6/uL (4.00-5.40); WHITE BLOOD COUNT 5.4 10^3/uL (4.0-10.0)
[2020-06-16 11:46] LABS: ALBUMIN 2.6 GM/DL (3.2-5.2); CALCIUM LEVEL 9.4 MG/DL (8.8-10.2); CREATININE FOR GFR 1.22 MG/DL (0.55-1.30); GLOMERULAR FILTRATION RATE 44.9 (>32); MAGNESIUM LEVEL 1.8 MG/DL (1.8-2.4); PHOSPHORUS LEVEL 4.1 MG/DL (2.5-4.9); POTASSIUM SERUM 3.7 MEQ/L (3.5-5.1)
[2020-06-16 11:58] LABS: PTH INTACT 25.4 PG/ML (18.5-88.0); URIC ACID 7.1 MG/DL (2.6-6.0)
== END ==
PROVIDERS: ATTEND Internal Medicine
DX: N18.30 Chronic kidney disease, stage 3 unspecified (principal)

== ENCOUNTER → 2020-06-17 | Outpatient (REF) ==
[2020-06-17 16:46] LABS: APPEARANCE, URINE CLEAR (CLEAR); BACTERIA, URINE AUTO 1+ (NEGATIVE); BILIRUBIN, URINE AUTO NEGATIVE (NEGATIVE); BLOOD, URINE BLOOD NEGATIVE (NEGATIVE); COLOR, URINE YELLOW (YELLOW); GLUCOSE, URINE (UA) AUTO NEGATIVE (NEGATIVE); KETONE, URINE AUTO NEGATIVE (NEGATIVE); LEUKOCYTE ESTERASE, URINE AUTO NEGATIVE (NEGATIVE); NITRITE, URINE AUTO NEGATIVE (NEGATIVE); PROTEIN, URINE AUTO NEGATIVE (NEGATIVE); RBC, URINE AUTO 1 /HPF (0-3); SPECIFIC GRAVITY URINE AUTO 1.011 (1.002-1.035); SQUAMOUS EPITHELIAL CELL UR AU 1 /HPF (0-6); UROBILINOGEN, URINE AUTO 0.2 mg/dL (0.0-2.0); WBC, URINE AUTO 1 /HPF (0-3)
== END ==
PROVIDERS: ATTEND Internal Medicine
DX: N39.0 Urinary tract infection, site not specified (principal)

== ENCOUNTER → 2020-06-25 | Outpatient (REF) | PROVIDERS: ATTEND Nurse Practitioner Adult Health | DX: R19.5 Other fecal abnormalities (principal) ==

== ENCOUNTER → 2020-07-10 | Outpatient (CLI) | payer MEDICARE, MEDICAID ==
--- NOTE | 2020-07-21 08:58 | ECWPNPC ---
PATIENT NAME: PATEL TARANGO : 1935 GENDER: FEMALE VISIT DATE: 07/10/2020 DISCHARGE DATE: 07/10/20 1505 VISIT LOCKED DATE TIME: PHYSICIAN: NELI HAGAN MD RESOURCE: NEIL HAGAN MD REASON FOR APPOINTMENT 1. REVIEW MRI PER ELVI HISTORY OF PRESENT ILLNESS GENERAL: 84-YEAR-OLD FEMALE PATIENT WITH A HISTORY OF CHRONIC CERVICAL AND RIGHT ARM PAIN. SHE HAS BEEN SUFFERING FROM THIS PAIN FOR MANY YEARS. THE PATIENT DESCRIBES THE PAIN ACHING AND OCCASIONALLY STABBING WITH A PAIN SCORE RANGING FROM 7-9/10 DEPENDING ON PHYSICAL ACTIVITY. SHE NOTICES THAT THE PAIN INCREASES WITH MOVEMENT OF THE RIGHT ARM. THIS IS AFFECTING HER ACTIVITIES OF DAILY LIVING AND SHE NEEDS HELP. PATIENT DENIES UNEXPLAINABLE WEIGHT LOSS, FEVER, CHILLS, NEW CHANGES ON HER URINARY OR BOWEL CONTROL. PAIN CENTER INTAKE QUESTIONS: DO YOU HAVE A HISTORY OF MRSA? :NO DO YOU TAKE A BLOOD THINNERS? :NO DO YOU HAVE ANY BLEEDING DISORDERS? :NO ANY NEW NUMBNESS OR WEAKNESS IN YOUR LEGS OR ARMS? :NO ANY PACEMAKER,DEFIBRILLATOR, OR DORSAL COLUMN STIMULATOR? :NO DO YOU HAVE ANY RASHES OR OPEN SORES? :NO ARE YOU ALLERGIC TO IV DYE? :NO ARE YOU DIABETIC? :NO ANY NEW PROBLEMS WITH YOUR MEDICATIONS? :NO HAVE YOU RECEIVED A VACCINE IN THE PAST 30 DAYS? :NO DO YOU PLAN TO RECEIVE A VACCINE IN THE NEXT 21 DAYS? :NO DO YOU NEED ANY PRESCRIPTION? :NO DO YOU TAKE ANY IMMUNOSUPPRESSIVE MEDICATIONS? :NO IS THERE A CHANCE YOU COULD BE ? :NO ARE YOU BREAST FEEDING? :NO FALL RISK SCREENING: SCREENING :NO FALLS REPORTED IN THE LAST YEAR PAIN SCREENING: PATIENT HAS A COMPLAINT OF ACUTE OR CHRONIC PAIN :YES LOCATION OF PAIN:NECK, RIGHT SHOULDER INTENSITY OF PAIN (SCALE OF 1 TO 10):6 WHAT DOES YOUR PAIN FEEL LIKE:BURNING, CONTINOUS, SORE, TENDER NURSING NOTE: -. CURRENT MEDICATIONS TAKING LASIX 40 MG TABLET 1 TABLET ORALLY Q AM, NOTES: 01/27/20 TAKING FUROSEMIDE 20 MG TABLET 1 TABLET ORALLY Q AFTERNOON, NOTES: 01/27/20 TAKING NEURONTIN 600 MG TABLET 1 TABLET ORALLY QID, NOTES: 01/27/20 TAKING OXYCODONE HCL 20 MG TABLET EXTENDED RELEASE 12 HOUR 1 TABLET ORALLY EVERY 12 HRS, NOTES: 01/27/20 TAKING POTASSIUM CHLORIDE 10 MEQ CAPSULE EXTENDED RELEASE 2 CAPSULE ORALLY DAILY, NOTES: 01/27/20 TAKING PRAVACHOL 40 MG TABLET 1 TABLET ORALLY ONCE A DAY, NOTES: 01/27/20 TAKING SENNA S 8.6-50 MG TABLET 1 TABLET IN THE EVENING NEEDED ORALLY BID, NOTES: 01/27/20 TAKING ALDACTONE 25 MG TABLET 1 TABLET ORALLY DAILY, NOTES: 01/27/20 TAKING ULTRAM 50 MG TABLET 1 TABLET NEEDED ORALLY EVERY 6 HRS, NOTES: 01/27/20 TAKING EFFEXOR XR 150 MG CAPSULE EXTENDED RELEASE 24 HOUR 1 CAPSULE WITH FOOD ORALLY BID, NOTES: 01/27/20 TAKING VITAMIN D 5000 UNIT CAPSULE 1 CAPSULE ORALLY ONCE A DAY, NOTES: 01/27/20 TAKING ATIVAN 0.5 MG TABLET 1 TABLET AT BEDTIME NEEDED ORALLY BID, NOTES: 01/27/20 TAKING AMARYL 4 MG TABLET 1 TABLET WITH BREAKFAST OR THE FIRST MAIN MEAL OF THE DAY ORALLY ONCE A DAY, NOTES: 01/27/20 TAKING ANUCORT-HC 25 MG SUPPOSITORY 1 SUPPOSITORY RECTAL TWICE A DAY PRN, NOTES: 01/27/20 TAKING TYLENOL 325 MG TABLET 2 TABLET NEEDED ORALLY EVERY 6 HRS PRN, NOTES: 01/27/20 TAKING ARTIFICIAL TEARS ? SOLUTION DIRECTED OPHTHALMIC , NOTES: 01/28/20 AM TAKING DUONEB 0.5-2.5 (3) MG/3ML SOLUTION 3 ML INHALATION Q 6HRS PRN, NOTES: 01/27/20 TAKING SALINE 0.65 % SOLUTION 1 SPRAY EACH NOSTRIL NEEDED NASALLY BID PRN, NOTES: 01/27/20 TAKING VENTOLIN HFA 108 (90 BASE) MCG/ACT AEROSOL SOLUTION 2 PUFFS INHALATION TID PRN, NOTES: 01/27/20 TAKING VENLAFAXINE HCL ER 225 MG TABLET EXTENDED RELEASE 24 HOUR 1 TABLET WITH FOOD ORALLY ONCE A DAY, NOTES: 112.5MG DAILY 01/27/20 TAKING ARTIFICIAL TEARS 1.4 % SOLUTION DIRECTED OPHTHALMIC , NOTES: 01/28/20 AM TAKING ABILIFY 20 MG TABLET 1 TABLET ORALLY ONCE A DAY, NOTES: 01/27/20 TAKING CALCITRIOL 0.25 MCG CAPSULE 1 CAPSULE ORALLY ONCE A DAY, NOTES: 01/27/20 TAKING CARVEDILOL 6.25 MG TABLET 1 TABLET WITH FOOD ORALLY TWICE A DAY, NOTES: 01/27/20 TAKING DULOXETINE HCL 60 MG CAPSULE DELAYED RELEASE PARTICLES 1 CAPSULE ORALLY ONCE A DAY, NOTES: 01/27/20 TAKING GABAPENTIN 800 MG TABLET 1 TABLET ORALLY ONCE A DAY, NOTES: 01/27/20 TAKING HUMALOG KWIKPEN 100 UNIT/ML SOLUTION PEN-INJECTOR DIRECTED SUBCUTANEOUS , NOTES: 01/27/20 TAKING SYMBICORT 160-4.5 MCG/ACT AEROSOL 2 PUFFS INHALATION TWICE A DAY, NOTES: 01/27/20 TAKING SENNA 8.6 MG TABLET 2 TABLETS AT BEDTIME NEEDED ORALLY ONCE A DAY, NOTES: 01/27/20 TAKING ACETAMINOPHEN 500 MG TABLET 2 TABLETS ORALLY EVERY 6 HOURS NEEDED (MDD 3000 MG), NOTES: 01/27/20 TAKING PRAVASTATIN SODIUM 40 MG TABLET 1 TABLET ORALLY ONCE A DAY, NOTES: 01/27/20 TAKING ASPIR-LOW 81 MG TABLET DELAYED RELEASE 1 TABLET ORALLY ONCE A DAY TAKING SYMBICORT 160-4.5 MCG/ACT AEROSOL 2 PUFFS INHALATION TWICE A DAY TAKING LEVOTHYROXINE SODIUM 100 MCG TABLET 1 TABLET IN THE MORNING ON AN EMPTY STOMACH ORALLY ONCE A DAY TAKING LATANOPROST 0.005 % SOLUTION 1 DROP INTO AFFECTED EYE IN THE EVENING OPHTHALMIC ONCE A DAY TAKING LASIX 40 MG TABLET 1 TABLET ORALLY ONCE A DAY TAKING ASPERCREME LIDOCAINE 4 % PATCH DIRECTED EXTERNALLY TAKING LIDODERM 5 % PATCH 1 PATCH REMOVE AFTER 12 HOURS EXTERNALLY ONCE A DAY TAKING FENTANYL 50 MCG/HR PATCH 72 HOUR 1 PATCH TO SKIN TRANSDERMAL TAKING TIZANIDINE HCL 2 MG TABLET 1 TABLET NEEDED ORALLY TWICE DAILY NEEDED TAKING DICLOFENAC SODIUM 3 % GEL 1 APPLICATION TRANSDERMAL TWICE A DAY TAKING VOLTAREN 1 % GEL DIRECTED TRANSDERMAL TAKING ALLOPURINOL 100 MG TABLETS ONE TAB ORALLY DAILY MEDICATION LIST REVIEWED AND RECONCILED WITH THE PATIENT PAST MEDICAL HISTORY COPD DEPRESSION ESOPHAGEAL REFLUX HYPERTENSION CAD OBESITY DIABETES MELLITUS SLEEP APNEA OSTEOARTHRITIS ANEMIA OSTEOPOROSIS GLAUCOMA RETINOPATHY ANXIETY CONSTIPATION BILATERAL NEUROPATHY LEGS ALLERGIES N.K.D.A. SURGICAL HISTORY CARDIAC CATHETERIZATION 12/2004 BILATERAL KNEE REPLACEMENT BREAST BIOSPY CHOLECYSTECTOMY FAMILY HISTORY FATHER: 97 YRS, PARKINSONS, DIABETES MOTHER: 82 YRS, HEART ATTACK NO FAMILY HX OF BLADDER OR KIDNEY CA. SOCIAL HISTORY GENERAL: TOBACCO USE ARE YOU A:: NEVER SMOKER. LATEX QUESTIONNAIRE LATEX ALLERGY : HAVE YOU EVER DEVELOPED ANY TYPE OF REACTION AFTER HANDLING LATEX PRODUCTS SUCH RUBBER GLOVES, CONDOMS, DIAPHRAGMS, BALLOONS, SOCKS, OR UNDERWEAR?NO LATEX ALLERGY : HAVE YOU EVER DEVELOPED ANY TYPE OF REACTION DURING OR AFTER DENTAL APPOINTMENT, VAGINAL/RECTAL EXAMINATION, SURGICAL PROCEDURE, OR ANY OTHER EXPOSURE?NO DATE ASKED : 06/10/2020 LATEX RISK : HAVE YOU EVER HAD ANY DIFFICULTY BREATHING OR HIVES AFTER EATING OR HANDLING ANY FRUITS, OR VEGETABLES; SUCH KIWI, BANANAS, STONE FRUITS, OR CHESTNUTSNO LATEX RISK : DO YOU HAVE A PREVIOUS PERSONAL HISTORY OF MORE THAN NINE SURGERIES, SPINA BIFIDA, OR REPEATED CATHERIZATIONS? NO LATEX RISK : ARE YOU FREQUENTLY EXPOSED TO LATEX PRODUCTS IN YOUR OCCUPATION?NO ALCOHOL SCREENING DID YOU HAVE A DRINK CONTAINING ALCOHOL IN THE PAST YEAR?NO POINTS0 INTERPRETATIONNEGATIVE RECREATIONAL DRUG USE DENIES. CAFFEINE 2-5/DAY. DOMESTIC VIOLENCE DO YOU FEEL SAFE IN YOUR ENVIRONMENT?YES EXERCISE: NONE. MARITAL STATUS: SINGLE. TODAY'S VISIT 01/28/20 FROM 0-10, WHAT LEVEL IS YOUR PAIN TODAY?10 PRECIPITATING FACTORS ACTIVITY ALLEVIATING FACTORS REST, MEDS IMPACT ON FUNCTION YES PAIN CLINIC PFS, CLERGY, PUBLIC HEALTH REFERRALS HAS THE PATIENT BEEN EDUCATED REGARDING HIS/HER PLAN OF CARE?YES HAS THE PATIENT BEEN EDUCATED REGARDING PAIN, THE RISK FOR PAIN, THE IMPORTANCE OF EFFECTIVE PAIN MANAGEMENT, AND THE PAIN ASSESSMENT PROCESS?YES ADVANCE DIRECTIVE ADVANCE DIRECTIVE DISCUSSED WITH PATIENT:YES DECLINED HOSPITALIZATION/MAJOR DIAGNOSTIC PROCEDURE DENIES PAST HOSPITALIZATION REVIEW OF SYSTEMS CONSTITUTIONAL: ANY RECENT FEVER NO . CHILLS NO . WEIGHT CHANGE OF UNKNOWN REASONS NO . GASTROENTEROLOGY: NEW UNEXPLAINABLE CHANGES IN BOWEL CONTROL NO . CONSTIPATION NO . GENITOURINARY: ANY NEW CHANGE IN BLADDER CONTROL? NO . NEUROLOGY: NEW ONSET DIZZINESS OR NEUROLOGICAL CHANGES NOT MENTIONED NO . NEW NUMBNESS OR PAIN PATTERNS NOT MENTIONED AND PERTINENT TO TODAY'S VISIT NO . CARDIOLOGY: NEW CHEST PRESSURE NO . NEW CHEST PAIN NO . RESPIRATORY: UNEXPLAINABLE COUGH NO . NEW SHORTNESS OF BREATH NO . VITAL SIGNS WT 278 LBS, HT 5'6", BMI 44.87 INDEX, BP 128/64 MM HG, HR 85 /MIN, RR 18 /MIN, TEMP 97.0 F, OXYGEN SAT % 95%, SAFE IN ENV? (Y/N) YES, NA INITIALS AW 1346, REVIEWED BY: KG. EXAMINATION GENERAL EXAMINATION: THE PATIENT IS ALERT, ORIENTED TIMES THREE AND COOPERATIVE. HEART SHOWS REGULAR RHYTHM, NO MURMURS AND NO GALLOPS. LUNGS ARE CLEAR TO AUSCULTATION. THE PATIENT IS IN A WHEELCHAIR. THERE IS TENDERNESS IN THE NECK AND THE RIGHT SHOULDER WITH TRIGGER POINTS PRESENT. WHEN THE PATIENT EXTENDS THE NECK SHE HAS PAIN IN THE NECK AND RIGHT ARM AND THE PATIENT STATES THAT IT GOES DOWN THE LOWER EXTREMITIES. CERVICAL MRI DATED 01/04/2019 SHOWS DEGENERATIVE CHANGES AT MULTIPLE LEVELS AND SPONDYLOLISTHESIS AT MULTIPLE LEVELS. 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 TARANGO. WE COULD DO INJECTION THERAPY UNDER X-RAY BUT IT COULD BE PROBLEMATIC GIVEN SHE WOULD HAVE TO BE IN THE PRONE POSITION. I DISCUSSED THIS WITH THE PATIENT AND SHE AGREES. I WOULD SUGGEST A TENS UNIT FOR THE PATIENT. THE PATIENT STATES SHE HAS TRIED THIS IN THE PAST AND WOULD LIKE TO TRY IT AGAIN. I WOULD ALSO SUGGEST OTHER PHYSICAL MODALITIES SUCH ULTRASOUND AND MESSAGE THERAPY. THE PATIENT STATES THAT AT [facility] THEY HAVE SUCH SERVICES SO I WOULD ADVISE THAT THE PATIENT DOES THIS. THE PATIENT STATES THAT SHE WOULD LIKE TO TRY THE PHYSICAL THERAPY AND CALL US IF SHE WOULD LIKE TO RETURN FOR FOLLOW UP TO CONSIDER TPI. THE PATIENT UNDERSTANDS AND AGREES WITH THE PLAN. I, JEFF TAPIA, DOCUMENTED THE ABOVE INFORMATION ACTING A SCRIBE FOR DR. HAGAN. I HAVE REVIEWED THE ABOVE DOCUMENT, WRITTEN BY JEFF TAPIA, [employer]VER SOLUTION MIXER, AND I VERIFY THAT IT IS ACCURATE. . PROCEDURE CODES FA211 ESTABILISHED PATIENT [facility] CHARGE 87303 OFFICE/OUTPATIENT VISIT EST DISPOSITION & COMMUNICATION FOLLOW UP PATIENT WILL CALL FOR FOLLOW UP NEEDED (REASON: PATIENT WILL CALL FOR FOLLOW UP NEEDED) ELECTRONICALLY SIGNED BY NEIL HAGAN MD, MD ON 07/20/2020 AT 03:12 PM EST DISCLAIMER : THIS IS A VISIT SUMMARY EXTRACTED FROM THE [employer] CHART. IT IS NOT A COPY OF THE [employer] PROGRESS NOTE. STARR
== END ==
LOC: M PAIN 13:45
PROVIDERS: ATTEND Anesthesiology
DX: M43.12 Spondylolisthesis, cervical region (principal); M43.02 Spondylolysis, cervical region; M79.18 Myalgia, other site; J44.9 Chronic obstructive pulmonary disease, unspecified; F32.9 Major depressive disorder, single episode, unspecified; K21.9 Gastro-esophageal reflux disease without esophagitis; I10 Essential (primary) hypertension; I25.10 Atherosclerotic heart disease of native coronary artery without angina pectoris; E66.9 Obesity, unspecified; E11.319 Type 2 diabetes mellitus with unspecified diabetic retinopathy without macular edema; G47.30 Sleep apnea, unspecified; D64.9 Anemia, unspecified; M81.0 Age-related osteoporosis without current pathological fracture; H40.9 Unspecified glaucoma; F41.9 Anxiety disorder, unspecified; K59.00 Constipation, unspecified; E11.42 Type 2 diabetes mellitus with diabetic polyneuropathy; Z79.891 Long term (current) use of opiate analgesic; Z79.4 Long term (current) use of insulin; Z79.899 Other long term (current) drug therapy; Z68.41 Body mass index [BMI] 40.0-44.9, adult

== ENCOUNTER → 2020-07-15 | Outpatient (REF) | PROVIDERS: ATTEND Internal Medicine | DX: M10.9 Gout, unspecified (principal) ==

== ENCOUNTER → 2020-07-23 | Outpatient (REF) | PROVIDERS: ATTEND Internal Medicine | DX: Z20.828 Contact with and (suspected) exposure to other viral communicable diseases (principal) ==

== ENCOUNTER → 2020-07-30 | Outpatient (REF) | payer MEDICARE, MEDICAID | LOC: EDSTATUS 09-08 14:49 | PROVIDERS: ATTEND Internal Medicine | DX: Z20.828 Contact with and (suspected) exposure to other viral communicable diseases (principal) ==

== ENCOUNTER → 2020-08-05 | Outpatient (REF) | payer MEDICARE, MEDICAID | PROVIDERS: ATTEND Internal Medicine | DX: Z20.828 Contact with and (suspected) exposure to other viral communicable diseases (principal) ==

== ENCOUNTER → 2020-08-14 | Outpatient (REF) ==
[2020-08-14 11:30] LABS: CALCIUM LEVEL 8.9 MG/DL (8.8-10.2); CREATININE FOR GFR 1.38 MG/DL (0.55-1.30); POTASSIUM SERUM 3.5 MEQ/L (3.5-5.1)
== END ==
PROVIDERS: ATTEND Internal Medicine
DX: R60.9 Edema, unspecified (principal)

== ENCOUNTER → 2020-08-17 | Outpatient (REF) ==
[2020-08-17 10:48] LABS: ALBUMIN 2.9 GM/DL (3.2-5.2); BILIRUBIN,TOTAL 0.3 MG/DL (0.2-1.0); CALCIUM LEVEL 9.1 MG/DL (8.8-10.2); CREATININE FOR GFR 1.37 MG/DL (0.55-1.30); GLOMERULAR FILTRATION RATE 39.3 (>32); POTASSIUM SERUM 3.2 MEQ/L (3.5-5.1); TOTAL PROTEIN 6.1 GM/DL (6.4-8.2)
== END ==
PROVIDERS: ATTEND Internal Medicine
DX: I50.9 Heart failure, unspecified (principal)

== ENCOUNTER → 2020-08-19 | Outpatient (REF) ==
[2020-08-19 13:35] LABS: BASO % 0.7 % (0.0-1.0); EOS # 0.2 10^3/uL (0.0-0.5); EOS % 3.8 % (0.0-3.0); HEMATOCRIT 37.6 % (36.0-47.0); HEMOGLOBIN 11.6 g/dl (12.0-15.5); LYMPH # 0.8 10^3/uL (1.5-5.0); LYMPH % 12.9 % (24.0-44.0); MEAN CORPUSCULAR HEMOGLOBIN 32.3 pg (27.0-33.0); MEAN CORPUSCULAR HGB CONC 30.9 g/dl (32.0-36.5); MEAN CORPUSCULAR VOLUME 104.7 fl (80.0-96.0); MONO # 0.4 10^3/uL (0.0-0.8); MONO % 6.7 % (0.0-5.0); NEUTROPHILS # 4.3 10^3/uL (1.5-8.5); NEUTROPHILS % 74.5 % (36.0-66.0); PLATELET COUNT, AUTOMATED 190 10^3/uL (150-450); RED BLOOD COUNT 3.59 10^6/uL (4.00-5.40); WHITE BLOOD COUNT 5.8 10^3/uL (4.0-10.0)
[2020-08-19 14:02] LABS: ALBUMIN 3.2 GM/DL (3.2-5.2); CALCIUM LEVEL 9.4 MG/DL (8.8-10.2); CREATININE FOR GFR 1.55 MG/DL (0.55-1.30); GLOMERULAR FILTRATION RATE 34.1 (>32); MAGNESIUM LEVEL 2.1 MG/DL (1.8-2.4); PERCENT SATURATION 23.5 % (13.2-45.0); PHOSPHORUS LEVEL 3.5 MG/DL (2.5-4.9); POTASSIUM SERUM 3.6 MEQ/L (3.5-5.1)
[2020-08-19 14:08] LABS: PTH INTACT 29.7 PG/ML (18.5-88.0)
== END ==
PROVIDERS: ATTEND Internal Medicine
DX: N18.9 Chronic kidney disease, unspecified (principal)

== ENCOUNTER → 2020-08-20 | Outpatient (REF) ==
[2020-08-20 15:32] LABS: APPEARANCE, URINE CLEAR (CLEAR); BACTERIA, URINE AUTO 1+ (NEGATIVE); BILIRUBIN, URINE AUTO NEGATIVE (NEGATIVE); BLOOD, URINE BLOOD NEGATIVE (NEGATIVE); COLOR, URINE YELLOW (YELLOW); GLUCOSE, URINE (UA) AUTO NEGATIVE (NEGATIVE); KETONE, URINE AUTO NEGATIVE (NEGATIVE); LEUKOCYTE ESTERASE, URINE AUTO TRACE (NEGATIVE); NITRITE, URINE AUTO NEGATIVE (NEGATIVE); PROTEIN, URINE AUTO NEGATIVE (NEGATIVE); RBC, URINE AUTO 0 /HPF (0-3); SPECIFIC GRAVITY URINE AUTO 1.015 (1.002-1.035); SQUAMOUS EPITHELIAL CELL UR AU 1 /HPF (0-6); UROBILINOGEN, URINE AUTO 0.2 mg/dL (0.0-2.0); WBC, URINE AUTO 2 /HPF (0-3)
== END ==
PROVIDERS: ATTEND Internal Medicine
DX: N18.9 Chronic kidney disease, unspecified (principal)

== ENCOUNTER → 2020-08-23 | Outpatient (REF) | PROVIDERS: ATTEND Internal Medicine | DX: Z20.828 Contact with and (suspected) exposure to other viral communicable diseases (principal) ==

== ENCOUNTER → 2020-08-27 | Outpatient (REF) | payer MEDICARE, MEDICAID ==
[2020-08-27 14:29] LABS: INFLUENZA A AMPLIFICATION NEGATIVE (NEGATIVE); INFLUENZA B AMPLIFICATION NEGATIVE (NEGATIVE)
== END ==
PROVIDERS: ATTEND Internal Medicine
DX: Z20.828 Contact with and (suspected) exposure to other viral communicable diseases (principal)
CPT/HCPCS: 87502; U0003

== ENCOUNTER → 2020-09-02 | Outpatient (REF) | payer MEDICARE, MEDICAID | PROVIDERS: ATTEND Internal Medicine | DX: Z20.828 Contact with and (suspected) exposure to other viral communicable diseases (principal) ==

== ENCOUNTER → 2020-09-06 | Outpatient (REF) | PROVIDERS: ATTEND Internal Medicine | DX: Z20.828 Contact with and (suspected) exposure to other viral communicable diseases (principal) ==

== ENCOUNTER → 2020-09-08 | Outpatient (REF) | payer MEDICARE, MEDICAID | PROVIDERS: ATTEND Internal Medicine | DX: Z20.828 Contact with and (suspected) exposure to other viral communicable diseases (principal) ==

== ENCOUNTER → 2020-09-14 | Outpatient (REF) | payer MEDICARE, MEDICAID | PROVIDERS: ATTEND Internal Medicine | DX: Z20.822 Contact with and (suspected) exposure to COVID-19 (principal) ==

== ENCOUNTER → 2020-09-18 | Outpatient (REF) | payer MEDICARE, MEDICAID | PROVIDERS: ATTEND Internal Medicine | DX: Z20.822 Contact with and (suspected) exposure to COVID-19 (principal) ==

== ENCOUNTER → 2020-09-23 | Outpatient (REF) | PROVIDERS: ATTEND Internal Medicine | DX: Z20.822 Contact with and (suspected) exposure to COVID-19 (principal) ==

== ENCOUNTER → 2020-09-29 | Outpatient (CLI) | payer MEDICARE, MEDICAID ==
--- NOTE | 2020-09-30 23:11 | ECWPNPC ---
PATIENT NAME: PATEL TARANGO : 1935 GENDER: FEMALE VISIT DATE: 09/29/2020 DISCHARGE DATE: 09/29/20 1402 VISIT LOCKED DATE TIME: PHYSICIAN: ELVI BELLA RESOURCE: ELVI BELLA REASON FOR APPOINTMENT 1. RIGHT [email or web address] ([employer]) HISTORY OF PRESENT ILLNESS GENERAL: PERMISSION REQUESTED AND RECEIVED FROM PATIENT TO PERFORM TELEHEALTH VISIT. 84-YEAR-OLD FEMALE IN FOR CHRONIC PAIN FOLLOW-UP. SHE RATES HER PAIN CURRENTLY AT AN 8 OUT OF 10 AND DESCRIBES IT ACHING. PATIENT IS CURRENTLY BEING TITRATED OFF GABAPENTIN DUE TO POOR RENAL FUNCTION AND THIS COULD BE A POTENTIAL CONTRIBUTING FACTOR TO HER INCREASED PAIN. FALL RISK SCREENING: SCREENING :NO FALLS REPORTED IN THE LAST YEAR PAIN SCREENING: PATIENT HAS A COMPLAINT OF ACUTE OR CHRONIC PAIN :YES LOCATION OF PAIN:RIGHT SHOULDER INTENSITY OF PAIN (SCALE OF 1 TO 10):8 WHAT DOES YOUR PAIN FEEL LIKE:ACHING DURATION:CONTINOUS, CONSTANT PAIN IS INCREASED BY:ACTIVITIES PAIN IS DECREASED BY:USE OF PAIN MEDICATIONS TREATMENT/MEDICATIONS USED TO MANAGE PAIN: FAHEEM, TPI LEVEL OF RELIEF FROM PAIN TREATMENTS IN THE PAST:50% PAIN HAS INTERFERED WITH THE FOLLOWING:BATHING/DRESSING, WALKING ABILITY, HOUSEWORK, TRANSPORTATION, TOILETING NURSING NOTE: 09/29/2020 11:22 AM SPOKE WITH NURSING FOUNDRY SUPERVISOR. RN TO CALL BACK. ABIGAIL BOTELLO MA. PAIN CENTER INTAKE QUESTIONS: DO YOU HAVE A HISTORY OF MRSA? :NO DO YOU TAKE A BLOOD THINNERS? :NO DO YOU HAVE ANY BLEEDING DISORDERS? :NO ANY NEW NUMBNESS OR WEAKNESS IN YOUR LEGS OR ARMS? :YES IMMOBILITY TO RIGHT SHOULDER FROM PAIN ANY PACEMAKER,DEFIBRILLATOR, OR DORSAL COLUMN STIMULATOR? :NO DO YOU HAVE ANY RASHES OR OPEN SORES? :NO ARE YOU ALLERGIC TO IV DYE? :NO ARE YOU DIABETIC? :YES ANY NEW PROBLEMS WITH YOUR MEDICATIONS? :YES GABAPENTIN REDUCED BY NEPHROLOGY FOR END STAGE RENAL FAILURE FROM 800 TID TO 300 TID HAVE YOU RECEIVED A VACCINE IN THE PAST 30 DAYS? :YES IF SO WHAT VACCINE AND WHEN? COVID VACCINE 09/14/20 DO YOU PLAN TO RECEIVE A VACCINE IN THE NEXT 21 DAYS? :YES IF SO WHAT VACCINE AND WHEN? 10/05/20 COVID VACCINE DO YOU NEED ANY PRESCRIPTION? :NO DO YOU TAKE ANY IMMUNOSUPPRESSIVE MEDICATIONS? :NO IS THERE A CHANCE YOU COULD BE ? :NO ARE YOU BREAST FEEDING? :NO CURRENT MEDICATIONS TAKING LASIX 40 MG TABLET 1 TABLET ORALLY BID TAKING NEURONTIN 600 MG TABLET 1 TABLET ORALLY QID TAKING OXYCODONE HCL 20 MG TABLET EXTENDED RELEASE 12 HOUR 1 TABLET ORALLY EVERY 12 HRS TAKING POTASSIUM CHLORIDE 10 MEQ CAPSULE EXTENDED RELEASE 2 CAPSULE ORALLY DAILY TAKING PRAVACHOL 40 MG TABLET 1 TABLET ORALLY ONCE A DAY TAKING SENNA S 8.6-50 MG TABLET 1 TABLET IN THE EVENING NEEDED ORALLY BID TAKING ALDACTONE 25 MG TABLET 1 TABLET ORALLY DAILY TAKING ULTRAM 50 MG TABLET 1 TABLET NEEDED ORALLY EVERY 6 HRS TAKING EFFEXOR XR 150 MG CAPSULE EXTENDED RELEASE 24 HOUR 1 CAPSULE WITH FOOD ORALLY BID TAKING VITAMIN D 5000 UNIT CAPSULE 1 CAPSULE ORALLY ONCE A DAY TAKING ATIVAN 0.5 MG TABLET 1 TABLET AT BEDTIME NEEDED ORALLY BID TAKING AMARYL 4 MG TABLET 1 TABLET WITH BREAKFAST OR THE FIRST MAIN MEAL OF THE DAY ORALLY ONCE A DAY TAKING ANUCORT-HC 25 MG SUPPOSITORY 1 SUPPOSITORY RECTAL TWICE A DAY PRN TAKING TYLENOL 325 MG TABLET 2 TABLET NEEDED ORALLY EVERY 6 HRS PRN TAKING DUONEB 0.5-2.5 (3) MG/3ML SOLUTION 3 ML INHALATION Q 6HRS PRN TAKING SALINE 0.65 % SOLUTION 1 SPRAY EACH NOSTRIL NEEDED NASALLY BID PRN TAKING VENTOLIN HFA 108 (90 BASE) MCG/ACT AEROSOL SOLUTION 2 PUFFS INHALATION TID PRN TAKING VENLAFAXINE HCL ER 150 MG TABLET EXTENDED RELEASE 24 HOUR 112 MG TABLET WITH FOOD ORALLY BID TAKING ABILIFY 20 MG TABLET 1 TABLET ORALLY ONCE A DAY TAKING CALCITRIOL 0.25 MCG CAPSULE 1 CAPSULE ORALLY ONCE A DAY TAKING CARVEDILOL 6.25 MG TABLET 1 TABLET WITH FOOD ORALLY TWICE A DAY TAKING DULOXETINE HCL 60 MG CAPSULE DELAYED RELEASE PARTICLES 1 CAPSULE ORALLY ONCE A DAY TAKING GABAPENTIN 400 MG CAPSULE 1 TABLET ORALLY TID TAKING HUMALOG KWIKPEN 100 UNIT/ML SOLUTION PEN-INJECTOR DIRECTED SUBCUTANEOUS TAKING SYMBICORT 160-4.5 MCG/ACT AEROSOL 2 PUFFS INHALATION TWICE A DAY TAKING SENNA 8.6 MG TABLET 2 TABLETS AT BEDTIME NEEDED ORALLY ONCE A DAY TAKING ACETAMINOPHEN 500 MG TABLET 2 TABLETS ORALLY EVERY 6 HOURS NEEDED (MDD 3000 MG) TAKING PRAVASTATIN SODIUM 40 MG TABLET 1 TABLET ORALLY ONCE A DAY TAKING ASPIR-LOW 81 MG TABLET DELAYED RELEASE 1 TABLET ORALLY ONCE A DAY TAKING SYMBICORT 160-4.5 MCG/ACT AEROSOL 2 PUFFS INHALATION TWICE A DAY TAKING LEVOTHYROXINE SODIUM 100 MCG TABLET 1 TABLET IN THE MORNING ON AN EMPTY STOMACH ORALLY ONCE A DAY TAKING LATANOPROST 0.005 % SOLUTION 1 DROP INTO AFFECTED EYE IN THE EVENING OPHTHALMIC ONCE A DAY TAKING ASPERCREME LIDOCAINE 4 % PATCH DIRECTED EXTERNALLY TAKING LIDODERM 5 % PATCH 1 PATCH REMOVE AFTER 12 HOURS EXTERNALLY ONCE A DAY TAKING FENTANYL 50 MCG/HR PATCH 72 HOUR 1 PATCH TO SKIN TRANSDERMAL TAKING TIZANIDINE HCL 2 MG TABLET 1 TABLET NEEDED ORALLY TWICE DAILY NEEDED TAKING DICLOFENAC SODIUM 3 % GEL 1 APPLICATION TRANSDERMAL TWICE A DAY TAKING VOLTAREN 1 % GEL DIRECTED TRANSDERMAL TAKING ALLOPURINOL 100 MG TABLETS ONE TAB ORALLY DAILY TAKING LEVEMIR FLEXPEN TAKING RESTASIS 0.05 % EMULSION 1 DROP INTO AFFECTED EYE OPHTHALMIC TWICE A DAY NOT-TAKING FUROSEMIDE 20 MG TABLET 1 TABLET ORALLY Q AFTERNOON NOT-TAKING ARTIFICIAL TEARS ? SOLUTION DIRECTED OPHTHALMIC NOT-TAKING ARTIFICIAL TEARS 1.4 % SOLUTION DIRECTED OPHTHALMIC NOT-TAKING LASIX 40 MG TABLET 1 TABLET ORALLY ONCE A DAY MEDICATION LIST REVIEWED AND RECONCILED WITH THE PATIENT PAST MEDICAL HISTORY COPD DEPRESSION ESOPHAGEAL REFLUX HYPERTENSION CAD OBESITY DIABETES MELLITUS SLEEP APNEA OSTEOARTHRITIS ANEMIA OSTEOPOROSIS GLAUCOMA RETINOPATHY ANXIETY CONSTIPATION BILATERAL NEUROPATHY LEGS ALLERGIES N.K.D.A. SURGICAL HISTORY CARDIAC CATHETERIZATION 12/2004 BILATERAL KNEE REPLACEMENT BREAST BIOSPY CHOLECYSTECTOMY REVIEW OF SYSTEMS CONSTITUTIONAL: ANY RECENT FEVER NO . CHILLS NO . WEIGHT CHANGE OF UNKNOWN REASONS NO . GASTROENTEROLOGY: NEW UNEXPLAINABLE CHANGES IN BOWEL CONTROL NO . CONSTIPATION NO . GENITOURINARY: ANY NEW CHANGE IN BLADDER CONTROL? NO . NEUROLOGY: NEW ONSET DIZZINESS OR NEUROLOGICAL CHANGES NOT MENTIONED NO . NEW NUMBNESS OR PAIN PATTERNS NOT MENTIONED AND PERTINENT TO TODAY'S VISIT NO . CARDIOLOGY: NEW CHEST PRESSURE NO . NEW CHEST PAIN NO . RESPIRATORY: UNEXPLAINABLE COUGH NO . NEW SHORTNESS OF BREATH NO . EXAMINATION GENERAL EXAMINATION: GENERALNO ACUTE DISTRESS, WELL NOURISHED AND HYDRATED. PSYCHAPPROPRIATE MOOD AND AFFECT . NECK:NURSE JUDY FROM [facility] PARTICIPATED WITH PHYSICAL EXAM PORTION. PATIENT EXPRESSES TENDERNESS ACROSS THE RIGHT SHOULDER AND DOWN THE RIGHT SIDE OF HER NECK. SURROUNDING SKIN SHOWS NO ERYTHEMA, ECCHYMOSIS, INCREASED WARMTH, AND/OR SKIN ERUPTIONS NOTED. . ASSESSMENTS MYALGIA, OTHER SITE - M79.18 (PRIMARY) TREATMENT MYALGIA, OTHER SITE NOTES: 84-YEAR-OLD FEMALE FOR CHRONIC PAIN FOLLOW-UP. GIVEN PRESENTING SYMPTOMS RECOMMEND TRIGGER POINT INJECTIONS TO THE RIGHT NECK AND SHOULDER WITH POST PROCEDURAL FOLLOW-UP. PATIENT HAS EXPRESSED UNDERSTANDING OF AND WAS IN AGREEMENT WITH TREATMENT PLAN. GIVEN TIME TO ASK QUESTIONS AND EXPRESS CONCERNS. TELEHEALTH VISIT CONDUCTED TIME SPENT WITH PATIENT 7 MINUTES. DISPOSITION & COMMUNICATION FOLLOW UP POSTPROCEDURE (REASON: RIGHT NECK AND SHOULDER TRIGGER POINT INJECTIONS) ELECTRONICALLY SIGNED BY JOSE GERMAN ON 09/30/2020 AT 09:12 AM EST DISCLAIMER : THIS IS A VISIT SUMMARY EXTRACTED FROM THE [employer] CHART. IT IS NOT A COPY OF THE [employer] PROGRESS NOTE. STARR
== END ==
LOC: M PAIN 11:15
PROVIDERS: ATTEND Family Medicine
DX: M79.18 Myalgia, other site (principal); J44.9 Chronic obstructive pulmonary disease, unspecified; F32.9 Major depressive disorder, single episode, unspecified; K21.9 Gastro-esophageal reflux disease without esophagitis; I10 Essential (primary) hypertension; I25.10 Atherosclerotic heart disease of native coronary artery without angina pectoris; E66.9 Obesity, unspecified; E11.319 Type 2 diabetes mellitus with unspecified diabetic retinopathy without macular edema; G47.30 Sleep apnea, unspecified; D64.9 Anemia, unspecified; M81.0 Age-related osteoporosis without current pathological fracture; H40.9 Unspecified glaucoma; F41.9 Anxiety disorder, unspecified; E11.42 Type 2 diabetes mellitus with diabetic polyneuropathy; Z79.891 Long term (current) use of opiate analgesic; Z79.899 Other long term (current) drug therapy; Z79.4 Long term (current) use of insulin

== ENCOUNTER → 2020-09-30 | Outpatient (REF) | payer MEDICARE, MEDICAID | PROVIDERS: ATTEND Internal Medicine | DX: Z20.822 Contact with and (suspected) exposure to COVID-19 (principal) ==

== ENCOUNTER → 2020-10-05 | Outpatient (REF) ==
[2020-10-05 15:44] LABS: HEMATOCRIT 39.4 % (36.0-47.0); HEMOGLOBIN 11.9 g/dl (12.0-15.5); MEAN CORPUSCULAR HEMOGLOBIN 31.4 pg (27.0-33.0); MEAN CORPUSCULAR HGB CONC 30.2 g/dl (32.0-36.5); PLATELET COUNT, AUTOMATED 216 10^3/uL (150-450); RED BLOOD COUNT 3.79 10^6/uL (4.00-5.40); WHITE BLOOD COUNT 7.8 10^3/uL (4.0-10.0)
[2020-10-05 16:20] LABS: CREATININE FOR GFR 1.57 MG/DL (0.55-1.30); GLOMERULAR FILTRATION RATE 33.6 (>32); POTASSIUM SERUM 3.9 MEQ/L (3.5-5.1); THYROID STIMULATING HORMONE 4.77 uIU/ML (0.358-3.740)
== END ==
PROVIDERS: ATTEND Internal Medicine
DX: R53.83 Other fatigue (principal)

== ENCOUNTER → 2020-10-07 | Outpatient (REF) | payer MEDICARE, MEDICAID | PROVIDERS: ATTEND Internal Medicine | DX: Z20.822 Contact with and (suspected) exposure to COVID-19 (principal) ==

== ENCOUNTER → 2020-10-09 | Outpatient (REF) | payer MEDICARE, MEDICAID ==
[2020-10-09 12:09] LABS: CALCIUM LEVEL 9.8 MG/DL (8.8-10.2); CREATININE FOR GFR 1.36 MG/DL (0.55-1.30); GLOMERULAR FILTRATION RATE 39.6 (>32); POTASSIUM SERUM 3.5 MEQ/L (3.5-5.1)
== END ==
PROVIDERS: ATTEND Internal Medicine
DX: I50.9 Heart failure, unspecified (principal)

== ENCOUNTER → 2020-10-14 | Outpatient (REF) | payer MEDICARE, MEDICAID | PROVIDERS: ATTEND Internal Medicine | DX: Z20.822 Contact with and (suspected) exposure to COVID-19 (principal) ==

== ENCOUNTER → 2020-10-21 | Outpatient (REF) | payer MEDICARE, MEDICAID | PROVIDERS: ATTEND Internal Medicine | DX: Z20.822 Contact with and (suspected) exposure to COVID-19 (principal) ==

== ENCOUNTER → 2020-10-28 | Outpatient (REF) | payer MEDICARE, MEDICAID | PROVIDERS: ATTEND Internal Medicine | DX: Z20.822 Contact with and (suspected) exposure to COVID-19 (principal) ==

== ENCOUNTER → 2020-11-04 | Outpatient (REF) | payer MEDICARE, MEDICAID | PROVIDERS: ATTEND Internal Medicine | DX: Z20.822 Contact with and (suspected) exposure to COVID-19 (principal) ==

== ENCOUNTER → 2020-11-09 | Outpatient (REF) | payer MEDICARE, MEDICAID ==
[2020-11-09 09:20] LABS: BASO # 0.1 10^3/uL (0.0-0.2); BASO % 0.7 % (0.0-1.0); EOS # 0.2 10^3/uL (0.0-0.5); EOS % 2.3 % (0.0-3.0); HEMATOCRIT 36.5 % (36.0-47.0); HEMOGLOBIN 11.1 g/dl (12.0-15.5); LYMPH # 0.9 10^3/uL (1.5-5.0); LYMPH % 12.5 % (24.0-44.0); MEAN CORPUSCULAR HEMOGLOBIN 30.4 pg (27.0-33.0); MEAN CORPUSCULAR HGB CONC 30.4 g/dl (32.0-36.5); MONO # 0.9 10^3/uL (0.0-0.8); MONO % 13.4 % (2.0-8.0); NEUTROPHILS # 4.8 10^3/uL (1.5-8.5); NEUTROPHILS % 69.2 % (36.0-66.0); PLATELET COUNT, AUTOMATED 186 10^3/uL (150-450); RED BLOOD COUNT 3.65 10^6/uL (4.00-5.40); WHITE BLOOD COUNT 6.9 10^3/uL (4.0-10.0)
[2020-11-09 09:49] LABS: BILIRUBIN,TOTAL 0.4 MG/DL (0.2-1.0); CHOLESTEROL RISK RATIO 3.2 (<5); CREATININE FOR GFR 1.54 MG/DL (0.55-1.30); GLOMERULAR FILTRATION RATE 34.2 (>32); MAGNESIUM LEVEL 1.6 MG/DL (1.8-2.4); PHOSPHORUS LEVEL 3.5 MG/DL (2.5-4.9); POTASSIUM SERUM 4.2 MEQ/L (3.5-5.1); THYROID STIMULATING HORMONE 2.33 uIU/ML (0.358-3.740)
[2020-11-09 10:26] LABS: AMORPHOUS SEDIMENT SMALL (NEGATIVE); APPEARANCE, URINE CLOUDY (CLEAR); BACTERIA, URINE AUTO 2+ (NEGATIVE); BILIRUBIN, URINE AUTO NEGATIVE (NEGATIVE); BLOOD, URINE BLOOD NEGATIVE (NEGATIVE); COLOR, URINE YELLOW (YELLOW); GLUCOSE, URINE (UA) AUTO NEGATIVE (NEGATIVE); KETONE, URINE AUTO NEGATIVE (NEGATIVE); LEUKOCYTE ESTERASE, URINE AUTO 3+ (NEGATIVE); NITRITE, URINE AUTO POSITIVE (NEGATIVE); PROTEIN, URINE AUTO NEGATIVE (NEGATIVE); RBC, URINE AUTO 4 /HPF (0-3); SPECIFIC GRAVITY URINE AUTO 1.014 (1.002-1.035); SQUAMOUS EPITHELIAL CELL UR AU 1 /HPF (0-6); UROBILINOGEN, URINE AUTO 0.2 mg/dL (0.0-2.0); WBC, URINE AUTO TNTC /HPF (0-3)
== END ==
PROVIDERS: ATTEND Internal Medicine
DX: R41.82 Altered mental status, unspecified (principal); Z79.899 Other long term (current) drug therapy

== ENCOUNTER → 2020-11-11 | Outpatient (REF) | payer MEDICARE, MEDICAID | PROVIDERS: ATTEND Internal Medicine | DX: Z20.822 Contact with and (suspected) exposure to COVID-19 (principal) ==

== ENCOUNTER → 2020-11-11 | Outpatient (REF) | payer MEDICARE, MEDICAID ==
[2020-11-11 06:06] LABS: RSV AMPLIFICATION NEGATIVE (NEGATIVE)
== END ==
PROVIDERS: ATTEND Internal Medicine
DX: Z20.828 Contact with and (suspected) exposure to other viral communicable diseases (principal); Z20.822 Contact with and (suspected) exposure to COVID-19
CPT/HCPCS: 87631; U0003

== ENCOUNTER → 2020-11-16 | Outpatient (REF) | payer MEDICARE, MEDICAID ==
[2020-11-16 09:17] LABS: BASO # 0.1 10^3/uL (0.0-0.2); BASO % 0.6 % (0.0-1.0); EOS # 0.5 10^3/uL (0.0-0.5); EOS % 5.8 % (0.0-3.0); HEMATOCRIT 34.6 % (36.0-47.0); HEMOGLOBIN 10.7 g/dl (12.0-15.5); LYMPH # 0.9 10^3/uL (1.5-5.0); LYMPH % 10.9 % (24.0-44.0); MEAN CORPUSCULAR HEMOGLOBIN 30.4 pg (27.0-33.0); MEAN CORPUSCULAR HGB CONC 30.9 g/dl (32.0-36.5); MEAN CORPUSCULAR VOLUME 98.3 fl (80.0-96.0); MONO % 12.5 % (2.0-8.0); NEUTROPHILS # 5.6 10^3/uL (1.5-8.5); NEUTROPHILS % 67.6 % (36.0-66.0); PLATELET COUNT, AUTOMATED 176 10^3/uL (150-450); RED BLOOD COUNT 3.52 10^6/uL (4.00-5.40); WHITE BLOOD COUNT 8.3 10^3/uL (4.0-10.0)
[2020-11-16 09:44] LABS: ALBUMIN 2.8 GM/DL (3.2-5.2); BILIRUBIN,TOTAL 0.4 MG/DL (0.2-1.0); CALCIUM LEVEL 8.8 MG/DL (8.8-10.2); CREATININE FOR GFR 2.23 MG/DL (0.55-1.30); GLOMERULAR FILTRATION RATE 22.3 (>32); POTASSIUM SERUM 3.9 MEQ/L (3.5-5.1); THYROID STIMULATING HORMONE 4.41 uIU/ML (0.358-3.740); TOTAL PROTEIN 5.7 GM/DL (6.4-8.2)
== END ==
PROVIDERS: ATTEND Internal Medicine
DX: R41.82 Altered mental status, unspecified (principal)

== ENCOUNTER → 2020-11-17 | Outpatient (REF) | payer MEDICARE, MEDICAID ==
[2020-11-17 11:57] LABS: CREATININE FOR GFR 1.86 MG/DL (0.55-1.30); GLOMERULAR FILTRATION RATE 27.5 (>32); POTASSIUM SERUM 4.5 MEQ/L (3.5-5.1)
== END ==
PROVIDERS: ATTEND Internal Medicine
DX: N17.9 Acute kidney failure, unspecified (principal)

== ENCOUNTER → 2020-11-18 | Outpatient (REF) | payer MEDICARE, MEDICAID ==
[2020-11-18 12:44] LABS: CALCIUM LEVEL 8.4 MG/DL (8.8-10.2); CREATININE FOR GFR 1.66 MG/DL (0.55-1.30); GLOMERULAR FILTRATION RATE 31.4 (>32)
== END ==
PROVIDERS: ATTEND Internal Medicine
DX: I50.9 Heart failure, unspecified (principal); Z20.822 Contact with and (suspected) exposure to COVID-19
CPT/HCPCS: 36415; 80048; U0003

== ENCOUNTER → 2020-11-20 | Outpatient (REF) | payer MEDICARE, MEDICAID ==
[2020-11-20 08:09] LABS: CALCIUM LEVEL 9.1 MG/DL (8.8-10.2); CREATININE FOR GFR 1.16 MG/DL (0.55-1.30); GLOMERULAR FILTRATION RATE 47.5 (>32); POTASSIUM SERUM 4.1 MEQ/L (3.5-5.1)
== END ==
PROVIDERS: ATTEND Internal Medicine
DX: R41.82 Altered mental status, unspecified (principal)

== ENCOUNTER → 2020-11-27 | Outpatient (REF) | payer MEDICARE, MEDICAID ==
[2020-11-27 10:40] LABS: HEMATOCRIT 38.5 % (36.0-47.0); HEMOGLOBIN 11.7 g/dl (12.0-15.5); MEAN CORPUSCULAR HGB CONC 30.4 g/dl (32.0-36.5); MEAN CORPUSCULAR VOLUME 101.9 fl (80.0-96.0); PLATELET COUNT, AUTOMATED 197 10^3/uL (150-450); RED BLOOD COUNT 3.78 10^6/uL (4.00-5.40); WHITE BLOOD COUNT 8.1 10^3/uL (4.0-10.0)
[2020-11-27 11:05] LABS: ALBUMIN 3.3 GM/DL (3.2-5.2); BILIRUBIN,TOTAL 0.4 MG/DL (0.2-1.0); CALCIUM LEVEL 9.1 MG/DL (8.8-10.2); CREATININE FOR GFR 1.01 MG/DL (0.55-1.30); GLOMERULAR FILTRATION RATE 55.7 (>32); POTASSIUM SERUM 5.2 MEQ/L (3.5-5.1); TOTAL PROTEIN 5.9 GM/DL (6.4-8.2)
== END ==
PROVIDERS: ATTEND Internal Medicine
DX: R10.9 Unspecified abdominal pain (principal); R11.0 Nausea

== ENCOUNTER → 2020-12-01 | Outpatient (REF) | payer MEDICARE, MEDICAID ==
[2020-12-01 13:39] LABS: HEMATOCRIT 38.7 % (36.0-47.0); HEMOGLOBIN 11.7 g/dl (12.0-15.5); MEAN CORPUSCULAR HEMOGLOBIN 30.8 pg (27.0-33.0); MEAN CORPUSCULAR HGB CONC 30.2 g/dl (32.0-36.5); MEAN CORPUSCULAR VOLUME 101.8 fl (80.0-96.0); PLATELET COUNT, AUTOMATED 231 10^3/uL (150-450); WHITE BLOOD COUNT 6.2 10^3/uL (4.0-10.0)
[2020-12-01 14:19] LABS: BILIRUBIN,TOTAL 0.3 MG/DL (0.2-1.0); CREATININE FOR GFR 1.15 MG/DL (0.55-1.30); POTASSIUM SERUM 4.1 MEQ/L (3.5-5.1); TOTAL PROTEIN 5.9 GM/DL (6.4-8.2)
--- NOTE | 2020-12-01 16:28 | REPPI ---
INDICATION: LETHARGY. COMPARISON: Comparison chest x-rays are reviewed from February 12, 2020, September 26, 2019, and January 28, 2019.. TECHNIQUE: Semi-erect AP portable chest x-ray. FINDINGS: The lungs are symmetrically aerated and free of infiltrate. Pleural angles are sharp. Heart is mildly enlarged unchanged. The thoracic aorta is tortuous and calcific unchanged. There are multiple small subcentimeter radiolucencies in the humeral head on the right and possibly along the scapular spine on the right. These appear to be new findings of uncertain significance. No other skeletal radiolucent lesion is appreciated. IMPRESSION: Mild cardiomegaly. Otherwise no active cardiopulmonary disease. new radiolucencies in the humeral head and possibly scapular spine on the right. Recommend right shoulder radiographs. <Electronically signed by Lee Aquino > 12/01/20 [id number]
== END ==
PROVIDERS: ATTEND Nurse Practitioner Adult Health
DX: I51.7 Cardiomegaly (principal); R53.83 Other fatigue

== ENCOUNTER → 2020-12-02 | Outpatient (REF) | payer MEDICARE, MEDICAID ==
[2020-12-02 10:07] LABS: HEMATOCRIT 36.6 % (36.0-47.0); HEMOGLOBIN 10.9 g/dl (12.0-15.5); MEAN CORPUSCULAR HEMOGLOBIN 30.8 pg (27.0-33.0); MEAN CORPUSCULAR HGB CONC 29.8 g/dl (32.0-36.5); MEAN CORPUSCULAR VOLUME 103.4 fl (80.0-96.0); PLATELET COUNT, AUTOMATED 208 10^3/uL (150-450); RED BLOOD COUNT 3.54 10^6/uL (4.00-5.40)
== END ==
PROVIDERS: ATTEND Internal Medicine
DX: R53.83 Other fatigue (principal); Z20.822 Contact with and (suspected) exposure to COVID-19
CPT/HCPCS: 36415; 83880; 85027; U0003

== ENCOUNTER → 2020-12-04 | Outpatient (REF) | payer MEDICARE, MEDICAID ==
--- NOTE | 2020-12-04 13:21 | REP ---
INDICATION: ABN OF R SHOULDER- RESIDENT WILL BRING ORDER WITH THEM TO XR COMPARISON: Chest 12/01/2020. TECHNIQUE: Three views right shoulder. FINDINGS: There is no evidence of acute fracture or dislocation. Multiple small round lucencies are seen in the humeral head. No definite lucent lesions are seen in the other adjacent osseous structures. There does appear to be moderate degenerative change at the acromioclavicular joint. IMPRESSION: No fracture or dislocation. Multiple small lucencies in the right humeral head appear to be relatively new compared to other prior chest radiographs. Differential diagnosis would include multiple myeloma or metastatic disease. <Electronically signed by Omar Anderson > 12/04/20 [id number]
== END ==
LOC: M RAD 12:07
PROVIDERS: ATTEND Nurse Practitioner Adult Health
DX: R93.6 Abnormal findings on diagnostic imaging of limbs (principal)

== ENCOUNTER → 2020-12-07 | Outpatient (CLI) | payer MEDICARE, MEDICAID ==
[~2020-12-07] MED LIST changes: +BUPIVACAINE HCL 0.25% 10ML VIAL As Ordered ONE; +BUPIVACAINE HCL 0.25% 30ML VIAL As Ordered ONE; +TRIAMCINOLONE ACETONIDE SUSP 40 MG/ML VIAL (J3301) As Ordered ONE
--- NOTE | 2020-12-10 03:37 | ECWPNPC ---
PATIENT NAME: PATEL TARANGO : 1935 GENDER: FEMALE VISIT DATE: 12/07/2020 DISCHARGE DATE: 12/07/20 1029 VISIT LOCKED DATE TIME: PHYSICIAN: NEIL HAGAN MD RESOURCE: NEIL HAGAN MD REASON FOR APPOINTMENT 1. TRIGGER POINT INJECTIONS RIGHT NECK AND RIGHT SHOULDER HISTORY OF PRESENT ILLNESS GENERAL: -. FALL RISK SCREENING: SCREENING : NO FALLS REPORTED IN THE LAST YEAR. NURSING NOTE: -. PAIN CENTER INTAKE QUESTIONS: DO YOU HAVE A HISTORY OF MRSA? :NO DO YOU TAKE A BLOOD THINNERS? :NO DO YOU HAVE ANY BLEEDING DISORDERS? :NO ANY NEW NUMBNESS OR WEAKNESS IN YOUR LEGS OR ARMS? :NO ANY PACEMAKER,DEFIBRILLATOR, OR DORSAL COLUMN STIMULATOR? :NO DO YOU HAVE ANY RASHES OR OPEN SORES? :NO ARE YOU ALLERGIC TO IV DYE? :NO ARE YOU DIABETIC? :YES FSBS AT 0800 68. DRANK CHOCOLATE MILK. ANY NEW PROBLEMS WITH YOUR MEDICATIONS? :NO HAVE YOU RECEIVED A VACCINE IN THE PAST 30 DAYS? :NO DO YOU PLAN TO RECEIVE A VACCINE IN THE NEXT 21 DAYS? :NO DO YOU TAKE ANY IMMUNOSUPPRESSIVE MEDICATIONS? :NO ANY HISTORY OF SEIZURES? :NO ANY HISTORY OF CARDIAC ISSUES OR EVENTS? :NO DO YOU HAVE ANY KIDNEY OR LIVER DISEASE? :NO DO YOU HAVE SLEEP APNEA? :YES DO YOU WEAR A CPAP?NO ANY RECENT HEAD INJURY? :NO DO YOU HAVE ANY NEW INFECTIONS? :NO IS THERE A CHANCE YOU COULD BE ? :NO ARE YOU BREAST FEEDING? :NO WHEN DID YOU LAST EAT? : -12/07 CHOCOLATE MILK/CRACKERS WITH PEANUT BUTTER WHEN DID YOU LAST DRINK? : -12/07 0800 WHAT DID YOU LAST DRINK? : -CHOCOLATE MILK NAME OF PERSON DRIVING YOU HOME? : -[facility] DO YOU HAVE ANY OTHER QUESTIONS OR CONCERNS? : - PAIN SCREENING: PATIENT HAS A COMPLAINT OF ACUTE OR CHRONIC PAIN :YES LOCATION OF PAIN:NECK, RIGHT SHOULDER INTENSITY OF PAIN (SCALE OF 1 TO 10):9 WHAT DOES YOUR PAIN FEEL LIKE:ACHING, CONTINOUS, SHARP, STABBING, TENDER, THROBBING, SORE, SHOOTING DURATION:CONTINOUS PAIN IS INCREASED BY:ACTIVITIES PAIN IS DECREASED BY:USE OF PAIN MEDICATIONS, OTHERS HEAT CURRENT MEDICATIONS TAKING LASIX 40 MG TABLET 1 TABLET ORALLY BID, NOTES: 12/07 47761 TAKING NEURONTIN 600 MG TABLET 1 TABLET ORALLY QID, NOTES: NONE RECENTLY PER [facility] RECORD TAKING OXYCODONE HCL 20 MG TABLET EXTENDED RELEASE 12 HOUR 1 TABLET ORALLY EVERY 12 HRS, NOTES: NONE RECENTLY PER [facility] RECORD TAKING POTASSIUM CHLORIDE 10 MEQ CAPSULE EXTENDED RELEASE 2 CAPSULE ORALLY DAILY TAKING PRAVACHOL 40 MG TABLET 1 TABLET ORALLY ONCE A DAY TAKING SENNA S 8.6-50 MG TABLET 1 TABLET IN THE EVENING NEEDED ORALLY BID TAKING ALDACTONE 25 MG TABLET 1 TABLET ORALLY DAILY, NOTES: NONE LATELY PER [facility] RECORD TAKING ULTRAM 50 MG TABLET 1 TABLET NEEDED ORALLY EVERY 6 HRS, NOTES: NONE RECENTLY PER [facility] RECORD TAKING EFFEXOR XR 150 MG CAPSULE EXTENDED RELEASE 24 HOUR 1 CAPSULE WITH FOOD ORALLY BID TAKING VITAMIN D 5000 UNIT CAPSULE 1 CAPSULE ORALLY ONCE A DAY TAKING ATIVAN 0.5 MG TABLET 1 TABLET AT BEDTIME NEEDED ORALLY BID, NOTES: NONE PER [facility] RECORD TAKING AMARYL 4 MG TABLET 1 TABLET WITH BREAKFAST OR THE FIRST MAIN MEAL OF THE DAY ORALLY ONCE A DAY, NOTES: NONE PER [facility] RECORD TAKING ANUCORT-HC 25 MG SUPPOSITORY 1 SUPPOSITORY RECTAL TWICE A DAY PRN TAKING TYLENOL 325 MG TABLET 2 TABLET NEEDED ORALLY EVERY 6 HRS PRN TAKING DUONEB 0.5-2.5 (3) MG/3ML SOLUTION 3 ML INHALATION Q 6HRS PRN TAKING SALINE 0.65 % SOLUTION 1 SPRAY EACH NOSTRIL NEEDED NASALLY BID PRN TAKING VENTOLIN HFA 108 (90 BASE) MCG/ACT AEROSOL SOLUTION 2 PUFFS INHALATION TID PRN TAKING VENLAFAXINE HCL ER 150 MG TABLET EXTENDED RELEASE 24 HOUR 112 MG TABLET WITH FOOD ORALLY BID, NOTES: SEE ABOVE TAKING ABILIFY 20 MG TABLET 1 TABLET ORALLY ONCE A DAY TAKING CALCITRIOL 0.25 MCG CAPSULE 1 CAPSULE ORALLY ONCE A DAY TAKING CARVEDILOL 6.25 MG TABLET 1 TABLET WITH FOOD ORALLY TWICE A DAY, NOTES: 12/07/20 0800 TAKING DULOXETINE HCL 60 MG CAPSULE DELAYED RELEASE PARTICLES 1 CAPSULE ORALLY ONCE A DAY TAKING GABAPENTIN 400 MG CAPSULE 1 TABLET ORALLY TID, NOTES: SEE ABOVE TAKING HUMALOG KWIKPEN 100 UNIT/ML SOLUTION PEN-INJECTOR DIRECTED SUBCUTANEOUS , NOTES: 12/06 TAKING SYMBICORT 160-4.5 MCG/ACT AEROSOL 2 PUFFS INHALATION TWICE A DAY TAKING SENNA 8.6 MG TABLET 2 TABLETS AT BEDTIME NEEDED ORALLY ONCE A DAY TAKING ACETAMINOPHEN 500 MG TABLET 2 TABLETS ORALLY EVERY 6 HOURS NEEDED (MDD 3000 MG) TAKING PRAVASTATIN SODIUM 40 MG TABLET 1 TABLET ORALLY ONCE A DAY TAKING ASPIR-LOW 81 MG TABLET DELAYED RELEASE 1 TABLET ORALLY ONCE A DAY TAKING SYMBICORT 160-4.5 MCG/ACT AEROSOL 2 PUFFS INHALATION TWICE A DAY, NOTES: SEE ABOVE TAKING LEVOTHYROXINE SODIUM 100 MCG TABLET 1 TABLET IN THE MORNING ON AN EMPTY STOMACH ORALLY ONCE A DAY TAKING LATANOPROST 0.005 % SOLUTION 1 DROP INTO AFFECTED EYE IN THE EVENING OPHTHALMIC ONCE A DAY TAKING ASPERCREME LIDOCAINE 4 % PATCH DIRECTED EXTERNALLY TAKING LIDODERM 5 % PATCH 1 PATCH REMOVE AFTER 12 HOURS EXTERNALLY ONCE A DAY, NOTES: NONE RECENTLY TAKING FENTANYL 50 MCG/HR PATCH 72 HOUR 1 PATCH TO SKIN TRANSDERMAL , NOTES: CURRENTLY HAS 25MCG PATCH ON TAKING TIZANIDINE HCL 2 MG TABLET 1 TABLET NEEDED ORALLY TWICE DAILY NEEDED, NOTES: NOT ON [facility]SV RECORD TAKING DICLOFENAC SODIUM 3 % GEL 1 APPLICATION TRANSDERMAL TWICE A DAY TAKING VOLTAREN 1 % GEL DIRECTED TRANSDERMAL TAKING ALLOPURINOL 100 MG TABLETS ONE TAB ORALLY DAILY TAKING LEVEMIR FLEXPEN , NOTES: 12/06 TAKING RESTASIS 0.05 % EMULSION 1 DROP INTO AFFECTED EYE OPHTHALMIC TWICE A DAY NOT-TAKING FUROSEMIDE 20 MG TABLET 1 TABLET ORALLY Q AFTERNOON NOT-TAKING ARTIFICIAL TEARS ? SOLUTION DIRECTED OPHTHALMIC NOT-TAKING ARTIFICIAL TEARS 1.4 % SOLUTION DIRECTED OPHTHALMIC NOT-TAKING LASIX 40 MG TABLET 1 TABLET ORALLY ONCE A DAY MEDICATION LIST REVIEWED AND RECONCILED WITH THE PATIENT PAST MEDICAL HISTORY COPD DEPRESSION ESOPHAGEAL REFLUX HYPERTENSION CAD OBESITY DIABETES MELLITUS SLEEP APNEA OSTEOARTHRITIS ANEMIA OSTEOPOROSIS GLAUCOMA RETINOPATHY ANXIETY CONSTIPATION BILATERAL NEUROPATHY LEGS ALLERGIES N.K.D.A. SURGICAL HISTORY CARDIAC CATHETERIZATION 12/2004 BILATERAL KNEE REPLACEMENT BREAST BIOSPY CHOLECYSTECTOMY FAMILY HISTORY FATHER: 97 YRS, P[place]S, DIABETES MOTHER: 82 YRS, HEART ATTACK NO FAMILY HX OF BLADDER OR KIDNEY CA. SOCIAL HISTORY GENERAL: TOBACCO USE ARE YOU A:: NEVER SMOKER. LATEX QUESTIONNAIRE LATEX ALLERGY : HAVE YOU EVER DEVELOPED ANY TYPE OF REACTION AFTER HANDLING LATEX PRODUCTS SUCH RUBBER GLOVES, CONDOMS, DIAPHRAGMS, BALLOONS, SOCKS, OR UNDERWEAR?NO LATEX ALLERGY : HAVE YOU EVER DEVELOPED ANY TYPE OF REACTION DURING OR AFTER DENTAL APPOINTMENT, VAGINAL/RECTAL EXAMINATION, SURGICAL PROCEDURE, OR ANY OTHER EXPOSURE?NO LATEX RISK : HAVE YOU EVER HAD ANY DIFFICULTY BREATHING OR HIVES AFTER EATING OR HANDLING ANY FRUITS, OR VEGETABLES; SUCH KIWI, BANANAS, STONE FRUITS, OR CHESTNUTSNO LATEX RISK : DO YOU HAVE A PREVIOUS PERSONAL HISTORY OF MORE THAN NINE SURGERIES, SPINA BIFIDA, OR REPEATED CATHERIZATIONS? YES LATEX RISK : ARE YOU FREQUENTLY EXPOSED TO LATEX PRODUCTS IN YOUR OCCUPATION?NO DATE ASKED : 12/07/2020 ALCOHOL SCREENING DID YOU HAVE A DRINK CONTAINING ALCOHOL IN THE PAST YEAR?NO POINTS0 INTERPRETATIONNEGATIVE RECREATIONAL DRUG USE DENIES. CAFFEINE 2-5/DAY. DOMESTIC VIOLENCE DO YOU FEEL SAFE IN YOUR ENVIRONMENT?YES EXERCISE: NONE. MARITAL STATUS: SINGLE. TODAY'S VISIT 01/28/20 FROM 0-10, WHAT LEVEL IS YOUR PAIN TODAY?10 PRECIPITATING FACTORS ACTIVITY ALLEVIATING FACTORS REST, MEDS IMPACT ON FUNCTION YES - HAS THE PATIENT BEEN EDUCATED REGARDING HIS/HER PLAN OF CARE?YES HAS THE PATIENT BEEN EDUCATED REGARDING PAIN, THE RISK FOR PAIN, THE IMPORTANCE OF EFFECTIVE PAIN MANAGEMENT, AND THE PAIN ASSESSMENT PROCESS?YES ADVANCE DIRECTIVE ADVANCE DIRECTIVE DISCUSSED WITH PATIENT:YES DECLINED VITAL SIGNS WT 251 LBS, HT 5'6", BMI 40.51 INDEX, BP 129/69 MM HG, HR 99 /MIN, RR 18 /MIN, TEMP 97.2 F, OXYGEN SAT % 92%, NA INITIALS SC 08:47, REVIEWED BY: TREVIN MAYERS. EXAMINATION GENERAL EXAMINATION: THE PATIENT IS ALERT, ORIENTED TIMES THREE AND COOPERATIVE. LUNGS ARE CLEAR TO AUSCULTATION. HEART SHOWS REGULAR RHYTHM, NO MURMURS AND NO GALLOPS. ASSESSMENTS MYALGIA, OTHER SITE - M79.18 (PRIMARY) TREATMENT MYALGIA, OTHER SITE COMPLETION OF PROCEDURAL VISIT WHEN MEETS CRITERIA PROCEDURES PAIN NURSING RECORD PROCEDURE IN ROOM 0826, PHYSICIAN IN ROOM 0957, START 1001, FINISH 1004, PHYSICIAN OUT OF ROOM 1006, OUT OF ROOM 1015, ECG N/A, PATIENT SHIELDED N/A, SAFETY STRAP N/A, PREP ALCOHOL DR. HAGAN, ASHIA LINO RN LOC: IN ROOM 0826, PHYSICIAN IN ROOM 0957, START 1001, FINISH 1004, PHYSICIAN OUT OF ROOM 1006, OUT OF ROOM 1015, ECG N/A, PATIENT SHIELDED N/A, SAFETY STRAP N/A, PREP ALCOHOL DR. HAGAN, ASHIA LINO RN RESP: IN ROOM 0826, PHYSICIAN IN ROOM 0957, START 1001, FINISH 1004, PHYSICIAN OUT OF ROOM 1006, OUT OF ROOM 1015, ECG N/A, PATIENT SHIELDED N/A, SAFETY STRAP N/A, PREP ALCOHOL DR. HAGAN, DRESSING TEGADERM Janel LINO RN COLOR: 1. ALERT, ORIENTED SKIN: 1. WARM, DRY POSITION: 5. SITTING VITALS: PATEL LINO 12/07/2020 10:13:03 AM > 148/72 HR 65 16 92% R/A D/C V/S NOTES PATIENT HAD FSBS OF 68 AT 0800 THIS AM AT [facility]. PATIENT STATES SHE WAS GIVEN CHOCOLATE MILK AND CRACKERS. NO S/S OF HYPOGLYCEMIA CURRENTLY. DR HAGAN AWARE. REPORT CALLED TO [facility] NURSE KEV AT [phone]. I REVIEWED DISCHARGE INSTRUCTIONS WITH PATIENT AND WITH NURSE KEV., DIRECTOR EHS CIELO PRESENT FOR DISCHARGE INSTRUCTIONS AND DISCHARGED PATIENT BACK TO [facility] VIA WHEELCHAIR.Janel LINO RN COMPLETION OF PROCEDURE APPOINTMENT: POST PAIN 5, DRESSING SITE DRY AND INTACT, IV N/A, GAIT WHEELCHAIR, TEACHING COMPLETED, PATIENT ACKNOWLEDGES UNDERSTANDING YES, PROCEDURE APPOINTMENT COMPLETED AT 1016 PN TRIGGER POINT INJECTION WITH STEROIDS PRE PROCEDURE DIAGNOSIS 1. MYALGIA 2. PAIN AT RIGHT NECK AREA AND RIGHT SHOULDER AREA POST PROCEDURE DIAGNOSIS 1. MYALGIA 2. PAIN AT RIGHT NECK AREA AND RIGHT SHOULDER AREA PROCEDURE TRIGGER POINT INJECTION AT RIGHT NECK AREA AND RIGHT SHOULDER AREA SURGEON DR. NEIL HAGAN INVESTIGATIONS MANAGER NONE ANESTHESIA LOCAL PRE PROCEDURE NOTE THE PATIENT HAS A HISTORY OF CHRONIC PAIN AT THE RIGHT NECK AREA AND RIGHT SHOULDER AREA. I EVALUATED THE PATIENT AND REVIEWED THE CHART. THERE IS EVIDENCE OF BANDS OF TISSUE WITH RESTRICTION OF MOVEMENT AND PRESENCE OF TRIGGER POINT AT THE RIGHT NECK AREA AND RIGHT SHOULDER AREA. I WENT OVER THE RISKS, ALTERNATIVES, AND BENEFITS ASSOCIATED WITH THIS PROCEDURE. THE PATIENT WOULD LIKE TO PROCEED AND GIVE CONSENT TO PERFORMED THE PROCEDURE. THE PATIENT DENIES UNEXPLAINABLE WEIGHT LOSS, FEVER, CHILLS, OR NEW CHANGES IN URINARY OR BOWEL CONTROL. THE PATIENT IS COVID-19 NEGATIVE DESCRIPTION OF PROCEDURE THE PATIENT WAS BROUGHT TO THE PROCEDURE ROOM AND PLACED IN THE SITTING POSITION. THE AREA WAS CLEANED WITH ALCOHOL. THE PROCEDURE WAS DONE USING ASEPTIC STERILE TECHNIQUE. A TIMEOUT WAS PERFORMED WHERE THE CONSENTED SITE WAS VERIFIED WITH EVERYONE IN THE ROOM. USING A 25-GAUGE NEEDLE, TRIGGER POINTS WERE INJECTED AT THE RIGHT NECK AREA AND RIGHT SHOULDER AREA WITH A TOTAL OF 40 ML OF BUPIVACAINE 0.25% AND KENALOG 40 MG. THE MEDICATIONS WERE VERIFIED WITH THE NURSE. THERE WAS NO EVIDENCE OF BLOOD OR PARESTHESIA DURING THE PROCEDURE. THE PATIENT WAS SENT TO THE RECOVERY ROOM. THE PATIENT WAS MOVING THE EXTREMITIES AND DOING WELL. THERE WERE NO COMPLICATIONS DURING THE PROCEDURE. ESTIMATED BLOOD LOSS WAS LESS THAN 5 ML POST PROCEDURE NOTE THE PROCEDURE DONE WAS DISCUSSED WITH THE PATIENT. THE PATIENT WILL BE SEEN IN A FOLLOW UP IN THE NEXT FEW WEEKS. I AM LOOKING FOR LONG LASTING PAIN RELIEF FOR THE PATIENT WITH THIS INTERVENTION. INSTRUCTIONS WERE GIVEN, QUESTIONS WERE ANSWERED, AND THE PATIENT EXPRESSED UNDERSTANDING AND AGREES WITH THE PLAN. I, JEFF TAPIA, DOCUMENTED THE ABOVE INFORMATION ACTING A SCRIBE FOR DR. HAGAN. I HAVE REVIEWED THE ABOVE DOCUMENT, WRITTEN BY JEFF TAPIA, STAMPING MACHINE OPERATOR, AND I VERIFY THAT IT IS ACCURATE PROCEDURE CODES 57194 INJ TRIGGER POINT 09/12 [facility] DISPOSITION & COMMUNICATION FOLLOW UP FOLLOW UP WITH SERVICE STATION MANAGER (REASON: POST TRIGGER POINT INJECTION RIGHT NECK AND RIGHT SHOULDER ) ELECTRONICALLY SIGNED BY NEIL HAGAN MD, MD ON 12/09/2020 AT 01:08 PM EDT DISCLAIMER : THIS IS A VISIT SUMMARY EXTRACTED FROM THE [employer] CHART. IT IS NOT A COPY OF THE [employer] PROGRESS NOTE. STARR
== END ==
LOC: M PAIN 08:30
PROVIDERS: ATTEND Anesthesiology
DX: M79.18 Myalgia, other site (principal); J44.9 Chronic obstructive pulmonary disease, unspecified; F32.9 Major depressive disorder, single episode, unspecified; K21.9 Gastro-esophageal reflux disease without esophagitis; I10 Essential (primary) hypertension; I25.10 Atherosclerotic heart disease of native coronary artery without angina pectoris; E11.319 Type 2 diabetes mellitus with unspecified diabetic retinopathy without macular edema; E66.9 Obesity, unspecified; G47.30 Sleep apnea, unspecified; M81.0 Age-related osteoporosis without current pathological fracture; H40.9 Unspecified glaucoma; F41.9 Anxiety disorder, unspecified; K59.00 Constipation, unspecified; E11.42 Type 2 diabetes mellitus with diabetic polyneuropathy; Z79.899 Other long term (current) drug therapy; Z79.4 Long term (current) use of insulin; Z68.41 Body mass index [BMI] 40.0-44.9, adult
CPT/HCPCS: 20552; J3301

== ENCOUNTER → 2020-12-08 | Outpatient (REF) | payer MEDICARE, MEDICAID ==
[~2020-12-08] MED LIST changes: -BUPIVACAINE HCL 0.25% 10ML VIAL As Ordered ONE; -BUPIVACAINE HCL 0.25% 30ML VIAL As Ordered ONE; -TRIAMCINOLONE ACETONIDE SUSP 40 MG/ML VIAL (J3301) As Ordered ONE
[2020-12-08 10:43] LABS: TOTAL PROTEIN 5.8 GM/DL (6.4-8.2)
== END ==
PROVIDERS: ATTEND Internal Medicine
DX: R93.89 Abnormal findings on diagnostic imaging of other specified body structures (principal)

== ENCOUNTER → 2020-12-11 | Outpatient (REF) ==
[2020-12-11 17:55] LABS: APPEARANCE, URINE CLEAR (CLEAR); BACTERIA, URINE AUTO NEGATIVE (NEGATIVE); BILIRUBIN, URINE AUTO NEGATIVE (NEGATIVE); BLOOD, URINE BLOOD NEGATIVE (NEGATIVE); COLOR, URINE YELLOW (YELLOW); GLUCOSE, URINE (UA) AUTO NEGATIVE (NEGATIVE); KETONE, URINE AUTO NEGATIVE (NEGATIVE); LEUKOCYTE ESTERASE, URINE AUTO NEGATIVE (NEGATIVE); NITRITE, URINE AUTO NEGATIVE (NEGATIVE); PROTEIN, URINE AUTO NEGATIVE (NEGATIVE); RBC, URINE AUTO 0 /HPF (0-3); SPECIFIC GRAVITY URINE AUTO 1.017 (1.002-1.035); SQUAMOUS EPITHELIAL CELL UR AU 1 /HPF (0-6); UROBILINOGEN, URINE AUTO 0.2 mg/dL (0.0-2.0); WBC, URINE AUTO 1 /HPF (0-3)
== END ==
PROVIDERS: ATTEND Internal Medicine
DX: R93.89 Abnormal findings on diagnostic imaging of other specified body structures (principal)

== ENCOUNTER → 2020-12-14 | Outpatient (REF) | payer MEDICARE, MEDICAID | PROVIDERS: ATTEND Internal Medicine | DX: R93.89 Abnormal findings on diagnostic imaging of other specified body structures (principal) ==

== ENCOUNTER → 2020-12-18 | Outpatient (REF) | payer MEDICARE, MEDICAID ==
[2020-12-18 15:40] LABS: INFLUENZA A AMPLIFICATION NEGATIVE (NEGATIVE); INFLUENZA B AMPLIFICATION NEGATIVE (NEGATIVE)
== END ==
PROVIDERS: ATTEND Internal Medicine
DX: Z11.52 Encounter for screening for COVID-19 (principal)

== ENCOUNTER → 2020-12-22 | Outpatient (REF) | payer MEDICARE, MEDICAID | PROVIDERS: ATTEND Internal Medicine | DX: Z20.822 Contact with and (suspected) exposure to COVID-19 (principal) ==

== ENCOUNTER → 2021-01-05 | Outpatient (REF) | payer MEDICARE, MEDICAID | PROVIDERS: ATTEND Internal Medicine | DX: Z20.822 Contact with and (suspected) exposure to COVID-19 (principal) ==

== ENCOUNTER → 2021-01-08 | Outpatient (CLI) | payer MEDICARE, MEDICAID ==
[~2021-01-08] MED LIST changes: +GASTROGRAFIN SOLUTION 30ML (Q9963) As Ordered ONE; +ISOVUE-370 76% 100ML VIAL As Ordered ONE
--- NOTE | 2021-01-08 15:29 | REP ---
INDICATION: MS PROTOCOL. COMPARISON: None TECHNIQUE: Helical technique after the intravenous administration of 100 cc Isovue 370 and oral bowel preparatory contrast administration FINDINGS: The liver and spleen are within normal limits. The patient is status post cholecystectomy. The pancreas is atrophic. The adrenal glands and kidneys are within normal limits. The abdominal aorta and para-aortic regions are within normal limits. The bowel loops and the mesenteries are within normal limits. There is no free fluid or free air. There is no evidence of a mass or adenopathy. There is evidence of diffuse muscular wasting. Bone window technique throughout the examination shows bilateral hip DJD right greater than left with degenerative changes seen involving the spine. There is a grade 2 superior endplate compression deformity seen involving L3 the age of which cannot be determined by this exam. IMPRESSION: Chronic changes as described above. <Electronically signed by Fransisco Matthews > 01/08/21 [id number]
--- NOTE | 2021-01-08 16:22 | REP ---
INDICATION: MS PROTOCOL. COMPARISON: None. TECHNIQUE: CT chest performed following the intravenous administration of 100 cc of Isovue 370. Sagittal and coronal reconstruction images are performed. FINDINGS: Lungs: Diffuse interstitial fibrotic changes are seen in the lungs without evidence of consolidating infiltrate. No suspicious pulmonary nodule is seen. Mediastinum: No adenopathy. Flory: No adenopathy. Axilla: No adenopathy. Pleura: No effusion. Heart: Not enlarged. Thoracic aorta: No aneurysm or dissection. Visualized osseous structures: There are diffuse degenerative changes of the spine without compression deformity. No suspicious bone lesions are seen in the visualized osseous structures. At the right shoulder joint, where there were small lucencies seen radiographically in the region of the humeral head, there is severe glenohumeral joint space narrowing with spurring and subchondral sclerosis, with multiple subcortical cysts which appear to be related to these degenerative changes. 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 No suspicious pulmonary nodule or adenopathy. Diffuse degenerative changes of the spine. Severe joint space narrowing with subchondral sclerosis and spurring at the right glenohumeral joint with multiple associated subcortical cysts, accounting for the radiographic lucencies seen on prior chest and shoulder radiographs. No suspicious bone lesion of the visualized osseous structures. <Electronically signed by Omar Anderson > 01/08/21 [id number]
== END ==
LOC: M RAD 13:07
PROVIDERS: ATTEND Nurse Practitioner Adult Health
DX: R91.8 Other nonspecific abnormal finding of lung field (principal)
CPT/HCPCS: 71260; 74177; Q9963; Q9967

== ENCOUNTER → 2021-01-18 | Outpatient (CLI) | payer MEDICARE, MEDICAID ==
[~2021-01-18] MED LIST changes: -GASTROGRAFIN SOLUTION 30ML (Q9963) As Ordered ONE; -ISOVUE-370 76% 100ML VIAL As Ordered ONE
== END ==
LOC: M LAB 15:29
PROVIDERS: ATTEND Internal Medicine
DX: K92.89 Other specified diseases of the digestive system (principal)

== ENCOUNTER → 2021-01-27 | Outpatient (REF) | payer MEDICARE, MEDICAID | PROVIDERS: ATTEND Internal Medicine | DX: N18.30 Chronic kidney disease, stage 3 unspecified (principal) ==

== ENCOUNTER → 2021-01-27 | Outpatient (REF) | payer MEDICARE, MEDICAID | PROVIDERS: ATTEND Internal Medicine | DX: I48.91 Unspecified atrial fibrillation (principal); Z53.8 Procedure and treatment not carried out for other reasons ==

== ENCOUNTER → 2021-01-28 | Outpatient (CLI) | payer MEDICARE, MEDICAID ==
--- NOTE | 2021-02-02 03:56 | ECWPNPC ---
PATIENT NAME: PAETL TARANGO : 1935 GENDER: FEMALE VISIT DATE: 01/28/2021 DISCHARGE DATE: 01/28/21 1207 VISIT LOCKED DATE TIME: PHYSICIAN: ELVI BELLA RESOURCE: ELVI BELLA REASON FOR APPOINTMENT 1. POST TRIGGER POINT INJECTION HISTORY OF PRESENT ILLNESS GENERAL: HPI 85-YEAR-OLD FEMALE IN FOR POST TRIGGER POINT INJECTION FOLLOW-UP. PATIENT FEELS THE PROCEDURE WAS UNSUCCESSFUL.. -. FALL RISK SCREENING: SCREENING : NO FALLS REPORTED IN THE LAST YEAR. PAIN SCREENING: PATIENT HAS A COMPLAINT OF ACUTE OR CHRONIC PAIN :NO NURSING NOTE: -. PAIN CENTER INTAKE QUESTIONS: DO YOU HAVE A HISTORY OF MRSA? :NO DO YOU TAKE A BLOOD THINNERS? :NO DO YOU HAVE ANY BLEEDING DISORDERS? :NO ANY NEW NUMBNESS OR WEAKNESS IN YOUR LEGS OR ARMS? :YES IMMOBILITY TO RIGHT SHOULDER FROM PAIN ANY PACEMAKER,DEFIBRILLATOR, OR DORSAL COLUMN STIMULATOR? :NO DO YOU HAVE ANY RASHES OR OPEN SORES? :NO ARE YOU ALLERGIC TO IV DYE? :NO ARE YOU DIABETIC? :YES ANY NEW PROBLEMS WITH YOUR MEDICATIONS? :YES GABAPENTIN REDUCED BY NEPHROLOGY FOR END STAGE RENAL FAILURE FROM 800 TID TO 300 TID HAVE YOU RECEIVED A VACCINE IN THE PAST 30 DAYS? :NO DO YOU PLAN TO RECEIVE A VACCINE IN THE NEXT 21 DAYS? :NO SECOND COVID VACCINATION 09/14/2020 DO YOU NEED ANY PRESCRIPTION? :NO DO YOU TAKE ANY IMMUNOSUPPRESSIVE MEDICATIONS? :NO IS THERE A CHANCE YOU COULD BE ? :NO ARE YOU BREAST FEEDING? :NO CURRENT MEDICATIONS TAKING VENLAFAXINE HCL ER 150 MG CAPSULE EXTENDED RELEASE 24 HOUR 112 MG TABLET WITH FOOD ORALLY BID, NOTES: SEE ABOVE TAKING CALCITRIOL 0.25 MCG CAPSULE 1 CAPSULE ORALLY ONCE A DAY TAKING SENNA 8.6 MG TABLET 2 TABLETS AT BEDTIME NEEDED ORALLY ONCE A DAY TAKING FENTANYL 50 MCG/HR PATCH 72 HOUR 1 PATCH TO SKIN TRANSDERMAL , NOTES: CURRENTLY HAS 25MCG PATCH ON TAKING ALLOPURINOL 100 MG TABLETS 2 TABLETS ORALLY DAILY TAKING RESTASIS 0.05 % EMULSION 1 DROP INTO AFFECTED EYE OPHTHALMIC TWICE A DAY TAKING GLUCERNA 1.2 DC - LIQUID DIRECTED ORALLY TAKING CYMBALTA 30 MG CAPSULE DELAYED RELEASE PARTICLES 1 CAPSULE ORALLY ONCE A DAY TAKING FUROSEMIDE 1 TAB ORAL TAKING BIOTENE MOISTURIZING MOUTH TAKING MIRALAX 17 GM/SCOOP POWDER DIRECTED ORALLY UNKNOWN LASIX 40 MG TABLET 1 TABLET ORALLY BID, NOTES: 12/07 82185 UNKNOWN NEURONTIN 600 MG TABLET 1 TABLET ORALLY QID, NOTES: NONE RECENTLY PER SSV RECORD UNKNOWN OXYCODONE HCL 20 MG TABLET EXTENDED RELEASE 12 HOUR 1 TABLET ORALLY EVERY 12 HRS, NOTES: NONE RECENTLY PER SSV RECORD UNKNOWN POTASSIUM CHLORIDE 10 MEQ CAPSULE EXTENDED RELEASE 2 CAPSULE ORALLY DAILY UNKNOWN PRAVACHOL 40 MG TABLET 1 TABLET ORALLY ONCE A DAY UNKNOWN SENNA S 8.6-50 MG TABLET 1 TABLET IN THE EVENING NEEDED ORALLY BID UNKNOWN ALDACTONE 25 MG TABLET 1 TABLET ORALLY DAILY, NOTES: NONE LATELY PER SSV RECORD UNKNOWN ULTRAM 50 MG TABLET 1 TABLET NEEDED ORALLY EVERY 6 HRS, NOTES: NONE RECENTLY PER SSV RECORD UNKNOWN EFFEXOR XR 150 MG CAPSULE EXTENDED RELEASE 24 HOUR 1 CAPSULE WITH FOOD ORALLY BID UNKNOWN VITAMIN D 5000 UNIT CAPSULE 1 CAPSULE ORALLY ONCE A DAY UNKNOWN ATIVAN 0.5 MG TABLET 1 TABLET AT BEDTIME NEEDED ORALLY BID, NOTES: NONE PER SSV RECORD UNKNOWN AMARYL 4 MG TABLET 1 TABLET WITH BREAKFAST OR THE FIRST MAIN MEAL OF THE DAY ORALLY ONCE A DAY, NOTES: NONE PER SSV RECORD UNKNOWN ANUCORT-HC 25 MG SUPPOSITORY 1 SUPPOSITORY RECTAL TWICE A DAY PRN UNKNOWN TYLENOL 325 MG TABLET 2 TABLET NEEDED ORALLY EVERY 6 HRS PRN UNKNOWN DUONEB 0.5-2.5 (3) MG/3ML SOLUTION 3 ML INHALATION Q 6HRS PRN UNKNOWN SALINE 0.65 % SOLUTION 1 SPRAY EACH NOSTRIL NEEDED NASALLY BID PRN UNKNOWN VENTOLIN HFA 108 (90 BASE) MCG/ACT AEROSOL SOLUTION 2 PUFFS INHALATION TID PRN UNKNOWN ABILIFY 20 MG TABLET 1 TABLET ORALLY ONCE A DAY UNKNOWN CARVEDILOL 6.25 MG TABLET 1 TABLET WITH FOOD ORALLY TWICE A DAY, NOTES: 12/07/20 0800 UNKNOWN DULOXETINE HCL 60 MG CAPSULE DELAYED RELEASE PARTICLES 1 CAPSULE ORALLY ONCE A DAY UNKNOWN GABAPENTIN 400 MG CAPSULE 1 TABLET ORALLY TID, NOTES: SEE ABOVE UNKNOWN HUMALOG KWIKPEN 100 UNIT/ML SOLUTION PEN-INJECTOR 15 UNITS SUBCUTANEOUS THREE TIMES DAILY, NOTES: 12/06 UNKNOWN SYMBICORT 160-4.5 MCG/ACT AEROSOL 2 PUFFS INHALATION TWICE A DAY UNKNOWN ACETAMINOPHEN 500 MG TABLET 2 TABLETS ORALLY EVERY 6 HOURS NEEDED (MDD 3000 MG) UNKNOWN PRAVASTATIN SODIUM 40 MG TABLET 1 TABLET ORALLY ONCE A DAY UNKNOWN ASPIR-LOW 81 MG TABLET DELAYED RELEASE 1 TABLET ORALLY ONCE A DAY UNKNOWN SYMBICORT 160-4.5 MCG/ACT AEROSOL 2 PUFFS INHALATION TWICE A DAY, NOTES: SEE ABOVE UNKNOWN LEVOTHYROXINE SODIUM 100 MCG TABLET 1 TABLET IN THE MORNING ON AN EMPTY STOMACH ORALLY ONCE A DAY UNKNOWN LATANOPROST 0.005 % SOLUTION 1 DROP INTO AFFECTED EYE IN THE EVENING OPHTHALMIC ONCE A DAY UNKNOWN ASPERCREME LIDOCAINE 4 % PATCH DIRECTED EXTERNALLY UNKNOWN LIDODERM 5 % PATCH 1 PATCH REMOVE AFTER 12 HOURS EXTERNALLY ONCE A DAY, NOTES: NONE RECENTLY UNKNOWN TIZANIDINE HCL 2 MG TABLET 1 TABLET NEEDED ORALLY TWICE DAILY NEEDED, NOTES: NOT ON SSV RECORD UNKNOWN DICLOFENAC SODIUM 3 % GEL 1 APPLICATION TRANSDERMAL TWICE A DAY UNKNOWN VOLTAREN 1 % GEL DIRECTED TRANSDERMAL UNKNOWN LEVEMIR FLEXPEN 40 UNITS 1 TIME A DAY AT 2000 INTRAMUSCULARLY , NOTES: 12/06 UNKNOWN FUROSEMIDE 20 MG TABLET 1 TABLET ORALLY Q AFTERNOON UNKNOWN ARTIFICIAL TEARS ? SOLUTION DIRECTED OPHTHALMIC UNKNOWN ARTIFICIAL TEARS 1.4 % SOLUTION DIRECTED OPHTHALMIC UNKNOWN LASIX 40 MG TABLET 1 TABLET ORALLY ONCE A DAY PAST MEDICAL HISTORY COPD DEPRESSION ESOPHAGEAL REFLUX HYPERTENSION CAD OBESITY DIABETES MELLITUS SLEEP APNEA OSTEOARTHRITIS ANEMIA OSTEOPOROSIS GLAUCOMA RETINOPATHY ANXIETY CONSTIPATION BILATERAL NEUROPATHY LEGS ALLERGIES CATS: ASTHMA/WHEEZING - ALLERGY SOCIAL HISTORY GENERAL: TOBACCO USE ARE YOU A:: NEVER SMOKER. LATEX QUESTIONNAIRE LATEX ALLERGY : HAVE YOU EVER DEVELOPED ANY TYPE OF REACTION AFTER HANDLING LATEX PRODUCTS SUCH RUBBER GLOVES, CONDOMS, DIAPHRAGMS, BALLOONS, SOCKS, OR UNDERWEAR?NO LATEX ALLERGY : HAVE YOU EVER DEVELOPED ANY TYPE OF REACTION DURING OR AFTER DENTAL APPOINTMENT, VAGINAL/RECTAL EXAMINATION, SURGICAL PROCEDURE, OR ANY OTHER EXPOSURE?NO LATEX RISK : HAVE YOU EVER HAD ANY DIFFICULTY BREATHING OR HIVES AFTER EATING OR HANDLING ANY FRUITS, OR VEGETABLES; SUCH KIWI, BANANAS, STONE FRUITS, OR CHESTNUTSNO LATEX RISK : DO YOU HAVE A PREVIOUS PERSONAL HISTORY OF MORE THAN NINE SURGERIES, SPINA BIFIDA, OR REPEATED CATHERIZATIONS? YES LATEX RISK : ARE YOU FREQUENTLY EXPOSED TO LATEX PRODUCTS IN YOUR OCCUPATION?NO DATE ASKED : 01/28/2021 ALCOHOL USE: NO. ALCOHOL SCREENING DID YOU HAVE A DRINK CONTAINING ALCOHOL IN THE PAST YEAR?NO POINTS0 INTERPRETATIONNEGATIVE RECREATIONAL DRUG USE DENIES. CAFFEINE 2-5/DAY. 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 MARITAL STATUS: SINGLE. TODAY'S VISIT 01/28/20 FROM 0-10, WHAT LEVEL IS YOUR PAIN TODAY?10 PRECIPITATING FACTORS ACTIVITY ALLEVIATING FACTORS REST, MEDS IMPACT ON FUNCTION YES - HAS THE PATIENT BEEN EDUCATED REGARDING HIS/HER PLAN OF CARE?YES HAS THE PATIENT BEEN EDUCATED REGARDING PAIN, THE RISK FOR PAIN, THE IMPORTANCE OF EFFECTIVE PAIN MANAGEMENT, AND THE PAIN ASSESSMENT PROCESS?YES ADVANCE DIRECTIVE ADVANCE DIRECTIVE DISCUSSED WITH PATIENT:YES DECLINED REVIEW OF SYSTEMS CONSTITUTIONAL: ANY RECENT FEVER NO . CHILLS NO . WEIGHT CHANGE OF UNKNOWN REASONS NO . GASTROENTEROLOGY: NEW UNEXPLAINABLE CHANGES IN BOWEL CONTROL NO . CONSTIPATION NO . GENITOURINARY: ANY NEW CHANGE IN BLADDER CONTROL? NO . NEUROLOGY: NEW ONSET DIZZINESS OR NEUROLOGICAL CHANGES NOT MENTIONED NO . NEW NUMBNESS OR PAIN PATTERNS NOT MENTIONED AND PERTINENT TO TODAY'S VISIT NO . CARDIOLOGY: NEW CHEST PRESSURE NO . PATIENT DENIES NO . RESPIRATORY: UNEXPLAINABLE COUGH NO . NEW SHORTNESS OF BREATH NO . VITAL SIGNS WT 247. LBS, HT 5'6", BMI 39.86 INDEX, BP 126/68 MM HG, HR 80 /MIN, RR 18 /MIN, TEMP 98.0 F, OXYGEN SAT % 93%, SAFE IN ENV? (Y/N) YES, NA INITIALS [place] 11:29, REVIEWED BY: TD BOTELLO MA. EXAMINATION GENERAL EXAMINATION: GENERALNO ACUTE DISTRESS, WELL NOURISHED AND HYDRATED. PSYCHAPPROPRIATE MOOD AND AFFECT . LUNGS:CLEAR TO AUSCULTATION BILATERALLY, NO WHEEZES, RHONCHI, RALES. HEART:NO MURMURS, REGULAR RATE AND RHYTHM. ASSESSMENTS OTHER CHRONIC PAIN - G89.29 (PRIMARY) MYALGIA, OTHER SITE - M79.18 (PRIMARY) TREATMENT OTHER CHRONIC PAIN PAIN PROCEDURE LOGDATE OF PVBLRVMOQ68/29/2021PROCEDURE:TRIGGER POINT INJECTIONSAMOUNT OF PRE SEDATE0 PRESEDATERESULT:UNSUCCESSFUL MYALGIA, OTHER SITE NOTES: 85-YEAR-OLD FEMALE IN FOR POST INJECTION FOLLOW-UP. GIVEN PRESENTING SYMPTOMS RECOMMENDED TRIAL OF TIZANIDINE AT NIGHT FOR MUSCLE SPASMS WITH FOLLOW-UP IN 2 MONTHS. PATIENT HAS EXPRESSED UNDERSTANDING OF AND WAS IN AGREEMENT WITH TREATMENT PLAN. GIVEN TIME TO ASK QUESTIONS AND EXPRESS CONCERNS. PROCEDURE CODES FA211 ESTABILISHED PATIENT [facility] CHARGE DISPOSITION & COMMUNICATION FOLLOW UP 2 MONTHS (REASON: MEDICATION) ELECTRONICALLY SIGNED BY JOSE GERMAN ON 02/01/2021 AT 10:35 AM EDT DISCLAIMER : THIS IS A VISIT SUMMARY EXTRACTED FROM THE [employer] CHART. IT IS NOT A COPY OF THE [employer] PROGRESS NOTE. SARITAD
== END ==
LOC: M PAIN 11:15
PROVIDERS: ATTEND Family Medicine
DX: G89.29 Other chronic pain (principal); M79.18 Myalgia, other site; J44.9 Chronic obstructive pulmonary disease, unspecified; F32.9 Major depressive disorder, single episode, unspecified; K21.9 Gastro-esophageal reflux disease without esophagitis; I10 Essential (primary) hypertension; I25.10 Atherosclerotic heart disease of native coronary artery without angina pectoris; E66.9 Obesity, unspecified; E11.42 Type 2 diabetes mellitus with diabetic polyneuropathy; J45.909 Unspecified asthma, uncomplicated; G47.30 Sleep apnea, unspecified; D64.9 Anemia, unspecified; M19.90 Unspecified osteoarthritis, unspecified site; M81.0 Age-related osteoporosis without current pathological fracture; H40.9 Unspecified glaucoma; F41.9 Anxiety disorder, unspecified; K59.00 Constipation, unspecified; E11.319 Type 2 diabetes mellitus with unspecified diabetic retinopathy without macular edema; Z79.899 Other long term (current) drug therapy

== ENCOUNTER → 2021-02-04 | Outpatient (REF) | payer MEDICARE, MEDICAID | LOC: M LAB 19:42 | PROVIDERS: ATTEND Internal Medicine | DX: L02.224 Furuncle of groin (principal) ==

== ENCOUNTER → 2021-04-01 | Outpatient (CLI) | payer MEDICARE, MEDICAID ==
--- NOTE | 2021-04-03 06:17 | ECWPNPC ---
PATIENT NAME: PATEL TARANGO : 1935 GENDER: FEMALE VISIT DATE: 04/01/2021 DISCHARGE DATE: 04/01/21 1159 VISIT LOCKED DATE TIME: PHYSICIAN: ELVI BELLA RESOURCE: ELVI BELLA REASON FOR APPOINTMENT 1. 2 MONTH F/U HISTORY OF PRESENT ILLNESS GENERAL: HPI 85-YEAR-OLD FEMALE IN FOR CHRONIC PAIN FOLLOW-UP. AT LAST CLINIC VISIT PATIENT WAS STARTED ON TIZANIDINE AND SHE ADMITS THAT SHE IS UNSURE IF THIS HAS BEEN BENEFICIAL AT ITS CURRENT DOSAGE. SHE RATES HER PAIN CURRENTLY AN 8 OUT OF 10 AND STATES THAT IT AVERAGES ABOUT 6 OUT OF 10. SHE DESCRIBES HER PAIN CONTINUOUS AND SHARP.. -. FALL RISK SCREENING: SCREENING : NO FALLS REPORTED IN THE LAST YEAR. PAIN SCREENING: PATIENT HAS A COMPLAINT OF ACUTE OR CHRONIC PAIN :YES LOCATION OF PAIN:RIGHT SHOULDER, UPPER BACK INTENSITY OF PAIN (SCALE OF 1 TO 10):8 AVERAGE IS 6 WHAT DOES YOUR PAIN FEEL LIKE:CONTINOUS, SHARP DURATION:CONTINOUS, CONSTANT, AWAKENS FROM SLEEP TOUCH AND MOVING HAND AND FINGERS PAIN IS INCREASED BY:ACTIVITIES, OTHERS PAIN IS DECREASED BY:SITTING, OTHERS NOTHING HELPS THE PAIN. NURSING NOTE: -. PAIN CENTER INTAKE QUESTIONS: DO YOU HAVE A HISTORY OF MRSA? :NO DO YOU TAKE A BLOOD THINNERS? :NO DO YOU HAVE ANY BLEEDING DISORDERS? :NO ANY NEW NUMBNESS OR WEAKNESS IN YOUR LEGS OR ARMS? :YES IMMOBILITY TO RIGHT SHOULDER FROM PAIN ANY PACEMAKER,DEFIBRILLATOR, OR DORSAL COLUMN STIMULATOR? :NO DO YOU HAVE ANY RASHES OR OPEN SORES? :YES OPEN AREA ON GROIN AND SKIN TEARS ON BILATERAL HANDS ARE YOU ALLERGIC TO IV DYE? :NO ARE YOU DIABETIC? :YES ANY NEW PROBLEMS WITH YOUR MEDICATIONS? :YES GABAPENTIN REDUCED BY NEPHROLOGY FOR END STAGE RENAL FAILURE FROM 800 TID TO 300 TID HAVE YOU RECEIVED A VACCINE IN THE PAST 30 DAYS? :NO 10/05/20 COVID VACCINE SECOND DO YOU PLAN TO RECEIVE A VACCINE IN THE NEXT 21 DAYS? :NO DO YOU NEED ANY PRESCRIPTION? :NO DO YOU TAKE ANY IMMUNOSUPPRESSIVE MEDICATIONS? :NO IS THERE A CHANCE YOU COULD BE ? :NO ARE YOU BREAST FEEDING? :NO CURRENT MEDICATIONS TAKING VENLAFAXINE HCL ER 150 MG CAPSULE EXTENDED RELEASE 24 HOUR 112 MG TABLET WITH FOOD ORALLY BID, NOTES: SEE ABOVE TAKING CALCITRIOL 0.25 MCG CAPSULE 1 CAPSULE ORALLY ONCE A DAY TAKING SENNA 8.6 MG TABLET 2 TABLETS AT BEDTIME NEEDED ORALLY ONCE A DAY TAKING FENTANYL 50 MCG/HR PATCH 72 HOUR 1 PATCH TO SKIN TRANSDERMAL , NOTES: CURRENTLY HAS 25MCG PATCH ON TAKING ALLOPURINOL 100 MG TABLETS 2 TABLETS ORALLY DAILY TAKING RESTASIS 0.05 % EMULSION 1 DROP INTO AFFECTED EYE OPHTHALMIC TWICE A DAY TAKING GLUCERNA 1.2 DC - LIQUID DIRECTED ORALLY TAKING CYMBALTA 30 MG CAPSULE DELAYED RELEASE PARTICLES 1 CAPSULE ORALLY ONCE A DAY TAKING FUROSEMIDE 1 TAB ORAL TAKING BIOTENE MOISTURIZING MOUTH TAKING MIRALAX 17 GM/SCOOP POWDER DIRECTED ORALLY UNKNOWN LASIX 40 MG TABLET 1 TABLET ORALLY BID, NOTES: 12/07 65928 UNKNOWN NEURONTIN 600 MG TABLET 1 TABLET ORALLY QID, NOTES: NONE RECENTLY PER SSV RECORD UNKNOWN OXYCODONE HCL 20 MG TABLET EXTENDED RELEASE 12 HOUR 1 TABLET ORALLY EVERY 12 HRS, NOTES: NONE RECENTLY PER SSV RECORD UNKNOWN POTASSIUM CHLORIDE 10 MEQ CAPSULE EXTENDED RELEASE 2 CAPSULE ORALLY DAILY UNKNOWN PRAVACHOL 40 MG TABLET 1 TABLET ORALLY ONCE A DAY UNKNOWN SENNA S 8.6-50 MG TABLET 1 TABLET IN THE EVENING NEEDED ORALLY BID UNKNOWN ALDACTONE 25 MG TABLET 1 TABLET ORALLY DAILY, NOTES: NONE LATELY PER SSV RECORD UNKNOWN ULTRAM 50 MG TABLET 1 TABLET NEEDED ORALLY EVERY 6 HRS, NOTES: NONE RECENTLY PER SSV RECORD UNKNOWN EFFEXOR XR 150 MG CAPSULE EXTENDED RELEASE 24 HOUR 1 CAPSULE WITH FOOD ORALLY BID UNKNOWN VITAMIN D 5000 UNIT CAPSULE 1 CAPSULE ORALLY ONCE A DAY UNKNOWN ATIVAN 0.5 MG TABLET 1 TABLET AT BEDTIME NEEDED ORALLY BID, NOTES: NONE PER SSV RECORD UNKNOWN AMARYL 4 MG TABLET 1 TABLET WITH BREAKFAST OR THE FIRST MAIN MEAL OF THE DAY ORALLY ONCE A DAY, NOTES: NONE PER SSV RECORD UNKNOWN ANUCORT-HC 25 MG SUPPOSITORY 1 SUPPOSITORY RECTAL TWICE A DAY PRN UNKNOWN TYLENOL 325 MG TABLET 2 TABLET NEEDED ORALLY EVERY 6 HRS PRN UNKNOWN DUONEB 0.5-2.5 (3) MG/3ML SOLUTION 3 ML INHALATION Q 6HRS PRN UNKNOWN SALINE 0.65 % SOLUTION 1 SPRAY EACH NOSTRIL NEEDED NASALLY BID PRN UNKNOWN VENTOLIN HFA 108 (90 BASE) MCG/ACT AEROSOL SOLUTION 2 PUFFS INHALATION TID PRN UNKNOWN ABILIFY 20 MG TABLET 1 TABLET ORALLY ONCE A DAY UNKNOWN CARVEDILOL 6.25 MG TABLET 1 TABLET WITH FOOD ORALLY TWICE A DAY, NOTES: 12/07/20 0800 UNKNOWN DULOXETINE HCL 60 MG CAPSULE DELAYED RELEASE PARTICLES 1 CAPSULE ORALLY ONCE A DAY UNKNOWN GABAPENTIN 400 MG CAPSULE 1 TABLET ORALLY TID, NOTES: SEE ABOVE UNKNOWN HUMALOG KWIKPEN 100 UNIT/ML SOLUTION PEN-INJECTOR 15 UNITS SUBCUTANEOUS THREE TIMES DAILY, NOTES: 12/06 UNKNOWN SYMBICORT 160-4.5 MCG/ACT AEROSOL 2 PUFFS INHALATION TWICE A DAY UNKNOWN ACETAMINOPHEN 500 MG TABLET 2 TABLETS ORALLY EVERY 6 HOURS NEEDED (MDD 3000 MG) UNKNOWN PRAVASTATIN SODIUM 40 MG TABLET 1 TABLET ORALLY ONCE A DAY UNKNOWN ASPIR-LOW 81 MG TABLET DELAYED RELEASE 1 TABLET ORALLY ONCE A DAY UNKNOWN SYMBICORT 160-4.5 MCG/ACT AEROSOL 2 PUFFS INHALATION TWICE A DAY, NOTES: SEE ABOVE UNKNOWN LEVOTHYROXINE SODIUM 100 MCG TABLET 1 TABLET IN THE MORNING ON AN EMPTY STOMACH ORALLY ONCE A DAY UNKNOWN LATANOPROST 0.005 % SOLUTION 1 DROP INTO AFFECTED EYE IN THE EVENING OPHTHALMIC ONCE A DAY UNKNOWN ASPERCREME LIDOCAINE 4 % PATCH DIRECTED EXTERNALLY UNKNOWN LIDODERM 5 % PATCH 1 PATCH REMOVE AFTER 12 HOURS EXTERNALLY ONCE A DAY, NOTES: NONE RECENTLY UNKNOWN TIZANIDINE HCL 2 MG TABLET 1 TABLET NEEDED ORALLY TWICE DAILY NEEDED, NOTES: NOT ON SSV RECORD UNKNOWN DICLOFENAC SODIUM 3 % GEL 1 APPLICATION TRANSDERMAL TWICE A DAY UNKNOWN VOLTAREN 1 % GEL DIRECTED TRANSDERMAL UNKNOWN LEVEMIR FLEXPEN 40 UNITS 1 TIME A DAY AT 2000 INTRAMUSCULARLY , NOTES: 12/06 UNKNOWN FUROSEMIDE 20 MG TABLET 1 TABLET ORALLY Q AFTERNOON UNKNOWN ARTIFICIAL TEARS ? SOLUTION DIRECTED OPHTHALMIC UNKNOWN ARTIFICIAL TEARS 1.4 % SOLUTION DIRECTED OPHTHALMIC UNKNOWN LASIX 40 MG TABLET 1 TABLET ORALLY ONCE A DAY MEDICATION LIST REVIEWED AND RECONCILED WITH THE PATIENT PAST MEDICAL HISTORY COPD DEPRESSION ESOPHAGEAL REFLUX HYPERTENSION CAD OBESITY DIABETES MELLITUS SLEEP APNEA OSTEOARTHRITIS ANEMIA OSTEOPOROSIS GLAUCOMA RETINOPATHY ANXIETY CONSTIPATION BILATERAL NEUROPATHY LEGS ALLERGIES CATS: ASTHMA/WHEEZING - ALLERGY SOCIAL HISTORY GENERAL: TOBACCO USE ARE YOU A:FORMER SMOKER HOW LONG HAS IT BEEN SINCE YOU LAST SMOKED?> 10 YEARS LATEX QUESTIONNAIRE LATEX ALLERGY : HAVE YOU EVER DEVELOPED ANY TYPE OF REACTION AFTER HANDLING LATEX PRODUCTS SUCH RUBBER GLOVES, CONDOMS, DIAPHRAGMS, BALLOONS, SOCKS, OR UNDERWEAR?NO LATEX ALLERGY : HAVE YOU EVER DEVELOPED ANY TYPE OF REACTION DURING OR AFTER DENTAL APPOINTMENT, VAGINAL/RECTAL EXAMINATION, SURGICAL PROCEDURE, OR ANY OTHER EXPOSURE?NO LATEX RISK : HAVE YOU EVER HAD ANY DIFFICULTY BREATHING OR HIVES AFTER EATING OR HANDLING ANY FRUITS, OR VEGETABLES; SUCH KIWI, BANANAS, STONE FRUITS, OR CHESTNUTSNO LATEX RISK : DO YOU HAVE A PREVIOUS PERSONAL HISTORY OF MORE THAN NINE SURGERIES, SPINA BIFIDA, OR REPEATED CATHERIZATIONS? YES LATEX RISK : ARE YOU FREQUENTLY EXPOSED TO LATEX PRODUCTS IN YOUR OCCUPATION?NO DATE ASKED : 04/01/2021 ALCOHOL USE: NO. ALCOHOL SCREENING DID YOU HAVE A DRINK CONTAINING ALCOHOL IN THE PAST YEAR?NO POINTS0 INTERPRETATIONNEGATIVE RECREATIONAL DRUG USE DENIES. CAFFEINE 2-5/DAY. 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 MARITAL STATUS: SINGLE. TODAY'S VISIT 01/28/20 FROM 0-10, WHAT LEVEL IS YOUR PAIN TODAY?10 PRECIPITATING FACTORS ACTIVITY ALLEVIATING FACTORS REST, MEDS IMPACT ON FUNCTION YES - HAS THE PATIENT BEEN EDUCATED REGARDING HIS/HER PLAN OF CARE?YES HAS THE PATIENT BEEN EDUCATED REGARDING PAIN, THE RISK FOR PAIN, THE IMPORTANCE OF EFFECTIVE PAIN MANAGEMENT, AND THE PAIN ASSESSMENT PROCESS?YES ADVANCE DIRECTIVE ADVANCE DIRECTIVE DISCUSSED WITH PATIENT:YES DECLINED REVIEW OF SYSTEMS CONSTITUTIONAL: ANY RECENT FEVER NO . CHILLS NO . WEIGHT CHANGE OF UNKNOWN REASONS NO . GASTROENTEROLOGY: NEW UNEXPLAINABLE CHANGES IN BOWEL CONTROL NO . CONSTIPATION NO . GENITOURINARY: ANY NEW CHANGE IN BLADDER CONTROL? NO . NEUROLOGY: NEW ONSET DIZZINESS OR NEUROLOGICAL CHANGES NOT MENTIONED NO . NEW NUMBNESS OR PAIN PATTERNS NOT MENTIONED AND PERTINENT TO TODAY'S VISIT NO . CARDIOLOGY: NEW CHEST PRESSURE NO . PATIENT DENIES NO . RESPIRATORY: UNEXPLAINABLE COUGH NO . NEW SHORTNESS OF BREATH NO . VITAL SIGNS WT 247.0 LBS, HT 5'6", BMI 39.86 INDEX, BP 134/81 MM HG, HR 81 /MIN, RR 18 /MIN, TEMP 97.4 F, OXYGEN SAT % 94%, SAFE IN ENV? (Y/N) YES, NA INITIALS AW 1138, REVIEWED BY: TD BOTELLO MA. EXAMINATION GENERAL EXAMINATION: GENERALNO ACUTE DISTRESS, WELL NOURISHED AND HYDRATED. PSYCHAPPROPRIATE MOOD AND AFFECT . LUNGS:CLEAR TO AUSCULTATION BILATERALLY, NO WHEEZES, RHONCHI, RALES. HEART:NO MURMURS, REGULAR RATE AND RHYTHM. 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 GIVEN PRESENTING SYMPTOMS RECOMMEND INCREASING TIZANDIINE TO 4MG AT BEDTIME WITH FOLLOW-UP IN 2 MONTHS TO DETERMINE EFFICACY OF TREATMENT. PATIENT HAS EXPRESSED UNDERSTANDING OF AND WAS IN AGREEMENT WITH TREATMENT PLAN. GIVEN TIME TO ASK QUESTIONS AND EXPRESS CONCERNS. 04/02/21 CALLED AND SPOKE WITH NURSE AT [facility] AND GAVE HER TREATMENT PLAN PER ELVI'S REQUEST. Herbie CHACON RN. PROCEDURE CODES FA211 ESTABILISHED PATIENT [facility] CHARGE DISPOSITION & COMMUNICATION FOLLOW UP 2 MONTHS (REASON: MED INCREASE) ELECTRONICALLY SIGNED BY JOSE GERMAN ON 04/02/2021 AT 08:49 AM EDT DISCLAIMER : THIS IS A VISIT SUMMARY EXTRACTED FROM THE [employer] CHART. IT IS NOT A COPY OF THE [email or web address] PROGRESS NOTE. STARR
== END ==
LOC: M PAIN 11:30
PROVIDERS: ATTEND Family Medicine
DX: M50.10 Cervical disc disorder with radiculopathy, unspecified cervical region (principal); J44.9 Chronic obstructive pulmonary disease, unspecified; F32.9 Major depressive disorder, single episode, unspecified; K21.9 Gastro-esophageal reflux disease without esophagitis; I10 Essential (primary) hypertension; I25.10 Atherosclerotic heart disease of native coronary artery without angina pectoris; E66.9 Obesity, unspecified; E11.319 Type 2 diabetes mellitus with unspecified diabetic retinopathy without macular edema; G47.30 Sleep apnea, unspecified; M19.90 Unspecified osteoarthritis, unspecified site; D64.9 Anemia, unspecified; J45.909 Unspecified asthma, uncomplicated; M81.0 Age-related osteoporosis without current pathological fracture; H40.9 Unspecified glaucoma; F41.9 Anxiety disorder, unspecified; K59.00 Constipation, unspecified; E11.42 Type 2 diabetes mellitus with diabetic polyneuropathy; Z87.891 Personal history of nicotine dependence; Z79.899 Other long term (current) drug therapy; Z68.39 Body mass index [BMI] 39.0-39.9, adult

== ENCOUNTER → 2021-04-07 | Outpatient (REF) | payer MEDICARE, MEDICAID ==
[2021-04-07 10:54] LABS: HEMATOCRIT 39.7 % (36.0-47.0); HEMOGLOBIN 12.6 g/dl (12.0-15.5); MEAN CORPUSCULAR HEMOGLOBIN 32.8 pg (27.0-33.0); MEAN CORPUSCULAR HGB CONC 31.7 g/dl (32.0-36.5); MEAN CORPUSCULAR VOLUME 103.4 fl (80.0-96.0); PLATELET COUNT, AUTOMATED 222 10^3/uL (150-450); RED BLOOD COUNT 3.84 10^6/uL (4.00-5.40); WHITE BLOOD COUNT 10.2 10^3/uL (4.0-10.0)
[2021-04-07 11:21] LABS: CALCIUM LEVEL 9.2 MG/DL (8.8-10.2); CREATININE FOR GFR 1.12 MG/DL (0.55-1.30); GLOMERULAR FILTRATION RATE 49.5 (>32); MAGNESIUM LEVEL 1.9 MG/DL (1.8-2.4); POTASSIUM SERUM 3.7 MEQ/L (3.5-5.1); URIC ACID 5.3 MG/DL (2.6-6.0)
[2021-04-07 11:31] LABS: PTH INTACT 60.2 PG/ML (18.5-88.0)
== END ==
PROVIDERS: ATTEND Internal Medicine
DX: N18.9 Chronic kidney disease, unspecified (principal); E11.22 Type 2 diabetes mellitus with diabetic chronic kidney disease; M10.9 Gout, unspecified

== ENCOUNTER → 2021-05-12 | Outpatient (REF) | payer MEDICARE, MEDICAID ==
[2021-05-12 11:03] LABS: HEMATOCRIT 38.2 % (36.0-47.0); HEMOGLOBIN 12.1 g/dl (12.0-15.5); MEAN CORPUSCULAR HEMOGLOBIN 33.2 pg (27.0-33.0); MEAN CORPUSCULAR HGB CONC 31.7 g/dl (32.0-36.5); MEAN CORPUSCULAR VOLUME 104.7 fl (80.0-96.0); PLATELET COUNT, AUTOMATED 205 10^3/uL (150-450); RED BLOOD COUNT 3.65 10^6/uL (4.00-5.40); WHITE BLOOD COUNT 9.3 10^3/uL (4.0-10.0)
[2021-05-12 11:42] LABS: ALBUMIN 2.9 GM/DL (3.2-5.2); BILIRUBIN,TOTAL 0.3 MG/DL (0.2-1.0); CALCIUM LEVEL 9.2 MG/DL (8.8-10.2); CHOLESTEROL RISK RATIO 3.5 (<5); CREATININE FOR GFR 1.01 MG/DL (0.55-1.30); GLOMERULAR FILTRATION RATE 55.7 (>32); POTASSIUM SERUM 3.8 MEQ/L (3.5-5.1); THYROID STIMULATING HORMONE 2.69 uIU/ML (0.358-3.740)
[2021-05-12 12:07] LABS: HEMOGLOBIN A1c 6.3 %
== END ==
PROVIDERS: ATTEND Nurse Practitioner Adult Health
DX: E11.9 Type 2 diabetes mellitus without complications (principal); J44.9 Chronic obstructive pulmonary disease, unspecified; E78.5 Hyperlipidemia, unspecified; E03.9 Hypothyroidism, unspecified

== ENCOUNTER → 2021-05-17 | Outpatient (REF) | payer MEDICARE, MEDICAID | PROVIDERS: ATTEND Nurse Practitioner Adult Health | DX: E11.9 Type 2 diabetes mellitus without complications (principal); Z53.8 Procedure and treatment not carried out for other reasons ==

== ENCOUNTER → 2021-07-15 | Outpatient (CLI) | payer MEDICARE, MEDICAID ==
[~2021-07-15] MED LIST changes: +GASTROGRAFIN SOLUTION 30ML (Q9963) As Ordered ONE
--- NOTE | 2021-07-15 16:51 | REP ---
INDICATION: CONSTIPATION. COMPARISON: 01/08/2021 TECHNIQUE: Oral Gastrografin mixture 10 mL in 290 mL flavored water for 2 doses per our bowel contrast protocol. Axial scanning with coronal and sagittal reconstructions provided. FINDINGS: CT abdomen: The lung bases show some dependent atelectatic change but are otherwise clear. Heart shows left atrium mildly prominent with no gross cardiomegaly. Calcified mitral annulus and aortic valve plane. No pericardial thickening or effusion nor hiatal hernia. I see no hepatosplenomegaly, focal hepatic or splenic lesion nor intrahepatic biliary dilatation. Prior cholecystectomy. Pancreas without acute finding. Oral contrast the stomach without distention small bowel loops through the abdomen and pelvis grossly unremarkable. No dilatation, air-fluid levels, wall thickening or mesenteric edema. The aorta has atherosclerotic calcification without aneurysm. There is no periaortic, mesenteric or retroperitoneal pathologic sized lymph nodes. Adrenal glands normal. Kidneys show lobation and sinus lipomatosis with cortical thinning. Abdominal portion of the colon with scattered stool and gas but no sign of colitis or diverticulitis. There is a stable tiny umbilical hernia with only omental fat within it and no bowel herniation. Lung window review of all CT slices shows no perforation or free air. The bone windows show degenerative changes in the spine and old grade 1 superior endplate compression deformity of L3, stable. Marginal osteophytes through mostly levels and vacuum phenomenon at L4-5 and L5-S1. Visualized ribs are intact. CT pelvis: Sacrum, pelvis and hips show stable degenerative changes without destructive lesion or fracture.9 distal left colon and sigmoid show no signs of colitis or diverticulitis. I do not see evidence of a stricture or mass in the colon. Appendix is normal. No extrinsic mass effect upon the colon. Anorectal junction grossly intact. No pelvic ascites. Bladder adequately filled there is no wall thickening, mass or stone. Uterus is not enlarged. No adnexal mass. No pelvic or inguinal lymphadenopathy. No ventral midline pelvic hernia. IMPRESSION: 1. Colon shows no evidence of colitis, diverticulitis, stricture or mass. 2. Kidneys, collecting systems ureters and bladder without stone, hydronephrosis or gross mass. Chronic changes to both kidneys, stable. 3. Small bowel loops grossly intact. 4. Upper abdominal solid organs otherwise without acute finding. Prior cholecystectomy. No hiatal hernia. <Electronically signed by Jeremiah Ha > 07/15/21 4640
== END ==
LOC: M RAD 12:24
PROVIDERS: ATTEND Nurse Practitioner Adult Health
DX: K59.00 Constipation, unspecified (principal)
CPT/HCPCS: 74176; Q9963

== ENCOUNTER → 2021-08-04 | Outpatient (REF) | payer MEDICARE, MEDICAID ==
[~2021-08-04] MED LIST changes: -GASTROGRAFIN SOLUTION 30ML (Q9963) As Ordered ONE
== END ==
PROVIDERS: ATTEND Nurse Practitioner Adult Health
DX: N18.9 Chronic kidney disease, unspecified (principal)

== ENCOUNTER → 2021-09-22 | Outpatient (REF) | payer MEDICARE, MEDICAID ==
[2021-09-22 11:27] LABS: CALCIUM LEVEL 8.8 MG/DL (8.8-10.2); CREATININE FOR GFR 1.24 MG/DL (0.55-1.30); POTASSIUM SERUM 4.3 MEQ/L (3.5-5.1)
== END ==
PROVIDERS: ATTEND Internal Medicine
DX: I50.9 Heart failure, unspecified (principal)

== ENCOUNTER → 2021-09-23 | Outpatient (REF) | payer MEDICARE, MEDICAID | PROVIDERS: ATTEND Internal Medicine | DX: I50.9 Heart failure, unspecified (principal) ==

== ENCOUNTER → 2021-11-03 | Outpatient (CLI) | payer MEDICARE, MEDICAID | PROVIDERS: ATTEND Internal Medicine | DX: R09.02 Hypoxemia (principal) ==

== ENCOUNTER → 2021-11-10 | Outpatient (REF) | payer MEDICARE, MEDICAID ==
[2021-11-10 12:06] LABS: HEMATOCRIT 36.2 % (36.0-47.0); HEMOGLOBIN 11.1 g/dl (12.0-15.5); MEAN CORPUSCULAR HEMOGLOBIN 32.4 pg (27.0-33.0); MEAN CORPUSCULAR HGB CONC 30.7 g/dl (32.0-36.5); MEAN CORPUSCULAR VOLUME 105.5 fl (80.0-96.0); PLATELET COUNT, AUTOMATED 180 10^3/uL (150-450); RED BLOOD COUNT 3.43 10^6/uL (4.00-5.40); WHITE BLOOD COUNT 9.9 10^3/uL (4.0-10.0)
[2021-11-10 13:37] LABS: ALBUMIN 2.8 GM/DL (3.2-5.2); BILIRUBIN,TOTAL 0.9 MG/DL (0.2-1.0); CALCIUM LEVEL 9.1 MG/DL (8.8-10.2); CHOLESTEROL RISK RATIO 2.418 (<5); CREATININE FOR GFR 1.19 MG/DL (0.55-1.30); POTASSIUM SERUM 4.1 MEQ/L (3.5-5.1); THYROID STIMULATING HORMONE 2.87 uIU/ML (0.358-3.740); TOTAL PROTEIN 6.2 GM/DL (6.4-8.2)
[2021-11-10 16:34] LABS: HEMOGLOBIN A1c 6.8 %
== END ==
PROVIDERS: ATTEND Internal Medicine
DX: J44.9 Chronic obstructive pulmonary disease, unspecified (principal); Z79.899 Other long term (current) drug therapy

== ENCOUNTER → 2021-12-13 | Outpatient (REF) | payer MEDICARE, MEDICAID ==
[2021-12-13 13:03] LABS: HEMATOCRIT 32.5 % (36.0-47.0); HEMOGLOBIN 10.1 g/dl (12.0-15.5); MEAN CORPUSCULAR HEMOGLOBIN 31.7 pg (27.0-33.0); MEAN CORPUSCULAR HGB CONC 31.1 g/dl (32.0-36.5); MEAN CORPUSCULAR VOLUME 101.9 fl (80.0-96.0); PLATELET COUNT, AUTOMATED 159 10^3/uL (150-450); RED BLOOD COUNT 3.19 10^6/uL (4.00-5.40); WHITE BLOOD COUNT 5.7 10^3/uL (4.0-10.0)
[2021-12-13 13:25] LABS: ALBUMIN 2.8 GM/DL (3.2-5.2); BILIRUBIN,TOTAL 0.3 MG/DL (0.2-1.0); CALCIUM LEVEL 8.6 MG/DL (8.8-10.2); CREATININE FOR GFR 1.26 MG/DL (0.55-1.30); GLOMERULAR FILTRATION RATE 43.1 (>32); POTASSIUM SERUM 4.7 MEQ/L (3.5-5.1); TOTAL PROTEIN 5.8 GM/DL (6.4-8.2)
== END ==
PROVIDERS: ATTEND Internal Medicine
DX: R05.9 Cough, unspecified (principal); Z79.899 Other long term (current) drug therapy

== ENCOUNTER → 2021-12-13 | Outpatient (REF) | payer MEDICARE, MEDICAID | PROVIDERS: ATTEND Internal Medicine | DX: R05.9 Cough, unspecified (principal) ==

== ENCOUNTER → 2021-12-14 | Outpatient (CLI) | payer MEDICARE, MEDICAID | PROVIDERS: ATTEND Internal Medicine | DX: R06.02 Shortness of breath (principal); J44.1 Chronic obstructive pulmonary disease with (acute) exacerbation ==

== ENCOUNTER → 2022-01-19 | Outpatient (REF) | payer MEDICARE, MEDICAID ==
[2022-01-19 10:42] LABS: BASO % 0.7 % (0.0-1.0); EOS # 0.2 10^3/uL (0.0-0.5); EOS % 3.3 % (0.0-3.0); HEMATOCRIT 35.7 % (36.0-47.0); HEMOGLOBIN 10.8 g/dl (12.0-15.5); MEAN CORPUSCULAR HGB CONC 30.3 g/dl (32.0-36.5); MEAN CORPUSCULAR VOLUME 105.6 fl (80.0-96.0); MONO # 0.6 10^3/uL (0.0-0.8); MONO % 9.8 % (2.0-8.0); NEUTROPHILS # 4.2 10^3/uL (1.5-8.5); NEUTROPHILS % 67.9 % (36.0-66.0); PLATELET COUNT, AUTOMATED 172 10^3/uL (150-450); RED BLOOD COUNT 3.38 10^6/uL (4.00-5.40); WHITE BLOOD COUNT 6.1 10^3/uL (4.0-10.0)
[2022-01-19 11:05] LABS: CREATININE FOR GFR 1.29 MG/DL (0.55-1.30); GLOMERULAR FILTRATION RATE 41.9 (>32); MAGNESIUM LEVEL 2.1 MG/DL (1.8-2.4); PHOSPHORUS LEVEL 4.3 MG/DL (2.5-4.9); POTASSIUM SERUM 4.4 MEQ/L (3.5-5.1); URIC ACID 5.6 MG/DL (2.6-6.0)
[2022-01-19 11:15] LABS: PTH INTACT 71.1 PG/ML (18.5-88.0)
== END ==
PROVIDERS: ATTEND Internal Medicine
DX: N18.9 Chronic kidney disease, unspecified (principal)

== ENCOUNTER → 2022-02-01 | Outpatient (CLI) | payer MEDICARE, MEDICAID | PROVIDERS: ATTEND Internal Medicine | DX: I50.9 Heart failure, unspecified (principal) ==

== ENCOUNTER → 2022-02-09 | Outpatient (CLI) | payer MEDICARE, MEDICAID | LOC: M RAD 12:07 | PROVIDERS: ATTEND Nurse Practitioner Family | DX: M79.89 Other specified soft tissue disorders (principal); I50.9 Heart failure, unspecified ==

== ENCOUNTER → 2022-02-09 | Outpatient (REF) | payer MEDICARE, MEDICAID ==
[2022-02-09 12:47] LABS: CALCIUM LEVEL 8.8 MG/DL (8.8-10.2); CREATININE FOR GFR 1.24 MG/DL (0.55-1.30); GLOMERULAR FILTRATION RATE 43.9 (>32); POTASSIUM SERUM 3.9 MEQ/L (3.5-5.1)
== END ==
PROVIDERS: ATTEND Nurse Practitioner Family
DX: I50.9 Heart failure, unspecified (principal)

== ENCOUNTER → 2022-02-14 | Outpatient (REF) | payer MEDICARE, MEDICAID ==
[2022-02-14 16:12] LABS: CALCIUM LEVEL 9.5 MG/DL (8.8-10.2); CREATININE FOR GFR 1.28 MG/DL (0.55-1.30); GLOMERULAR FILTRATION RATE 42.3 (>32); MAGNESIUM LEVEL 2.1 MG/DL (1.8-2.4); POTASSIUM SERUM 4.2 MEQ/L (3.5-5.1)
== END ==
PROVIDERS: ATTEND Nurse Practitioner Family
DX: I50.9 Heart failure, unspecified (principal)

== ENCOUNTER → 2022-03-09 | Outpatient (REF) | payer MEDICARE, MEDICAID | PROVIDERS: ATTEND Nurse Practitioner Family | DX: G62.9 Polyneuropathy, unspecified (principal); Z79.899 Other long term (current) drug therapy ==

== ENCOUNTER → 2022-03-16 | Outpatient (REF) | payer MEDICARE, MEDICAID ==
[2022-03-16 15:07] LABS: CALCIUM LEVEL 9.2 MG/DL (8.8-10.2); CREATININE FOR GFR 1.5 MG/DL (0.55-1.30); GLOMERULAR FILTRATION RATE 35.2 (>32); POTASSIUM SERUM 4.6 MEQ/L (3.5-5.1)
== END ==
PROVIDERS: ATTEND Nurse Practitioner Family
DX: E11.9 Type 2 diabetes mellitus without complications (principal)

== ENCOUNTER → 2022-03-21 | Outpatient (REF) | payer MEDICARE, MEDICAID ==
[2022-03-21 10:23] LABS: ALBUMIN 3.1 GM/DL (3.2-5.2); CALCIUM LEVEL 9.1 MG/DL (8.8-10.2); CREATININE FOR GFR 1.56 MG/DL (0.55-1.30); GLOMERULAR FILTRATION RATE 33.7 (>32); PHOSPHORUS LEVEL 3.8 MG/DL (2.5-4.9)
== END ==
PROVIDERS: ATTEND Internal Medicine
DX: G62.9 Polyneuropathy, unspecified (principal); N18.9 Chronic kidney disease, unspecified

== ENCOUNTER → 2022-03-28 | Outpatient (REF) | payer MEDICARE, MEDICAID ==
[2022-03-28 14:15] LABS: ALBUMIN 2.8 GM/DL (3.2-5.2); CALCIUM LEVEL 8.7 MG/DL (8.8-10.2); CREATININE FOR GFR 1.37 MG/DL (0.55-1.30); GLOMERULAR FILTRATION RATE 39.1 (>32); PHOSPHORUS LEVEL 3.9 MG/DL (2.5-4.9); POTASSIUM SERUM 4.1 MEQ/L (3.5-5.1)
== END ==
PROVIDERS: ATTEND Nurse Practitioner Family
DX: N18.9 Chronic kidney disease, unspecified (principal)

== ENCOUNTER → 2022-03-29 | Outpatient (REF) | payer MEDICARE, MEDICAID | LOC: M PLAIMG 08:59 | PROVIDERS: ATTEND Internal Medicine | DX: I50.9 Heart failure, unspecified (principal) ==

== ENCOUNTER → 2022-03-30 | Outpatient (REF) | payer MEDICARE, MEDICAID | PROVIDERS: ATTEND Nurse Practitioner Family | DX: R05.9 Cough, unspecified (principal) ==

== ENCOUNTER → 2022-03-30 | Outpatient (REF) | payer MEDICARE, MEDICAID ==
[2022-03-30 13:28] LABS: ALBUMIN 2.7 GM/DL (3.2-5.2); CALCIUM LEVEL 9.2 MG/DL (8.8-10.2); CREATININE FOR GFR 1.31 MG/DL (0.55-1.30); GLOMERULAR FILTRATION RATE 41.2 (>32); PHOSPHORUS LEVEL 4.1 MG/DL (2.5-4.9)
== END ==
PROVIDERS: ATTEND Nurse Practitioner Family
DX: I50.9 Heart failure, unspecified (principal)

== ENCOUNTER → 2022-04-04 | Outpatient (REF) | payer MEDICARE, MEDICAID ==
[2022-04-04 11:20] LABS: BASO % 0.4 % (0.0-1.0); EOS # 0.3 10^3/uL (0.0-0.5); EOS % 3.4 % (0.0-3.0); HEMATOCRIT 31.8 % (36.0-47.0); HEMOGLOBIN 9.8 g/dl (12.0-15.5); LYMPH # 0.4 10^3/uL (1.5-5.0); LYMPH % 4.6 % (24.0-44.0); MEAN CORPUSCULAR HGB CONC 30.8 g/dl (32.0-36.5); MEAN CORPUSCULAR VOLUME 103.9 fl (80.0-96.0); MONO # 0.8 10^3/uL (0.0-0.8); MONO % 10.1 % (2.0-8.0); NEUTROPHILS # 6.3 10^3/uL (1.5-8.5); NEUTROPHILS % 79.5 % (36.0-66.0); PLATELET COUNT, AUTOMATED 178 10^3/uL (150-450); RED BLOOD COUNT 3.06 10^6/uL (4.00-5.40); WHITE BLOOD COUNT 7.9 10^3/uL (4.0-10.0)
[2022-04-04 12:10] LABS: CALCIUM LEVEL 9.5 MG/DL (8.8-10.2); CREATININE FOR GFR 1.48 MG/DL (0.55-1.30); GLOMERULAR FILTRATION RATE 35.8 (>32)
== END ==
PROVIDERS: ATTEND Internal Medicine
DX: I50.9 Heart failure, unspecified (principal)

== ENCOUNTER → 2022-04-06 | Outpatient (REF) | payer MEDICARE, MEDICAID ==
[2022-04-06 12:59] LABS: ALBUMIN 3.1 GM/DL (3.2-5.2); CALCIUM LEVEL 9.7 MG/DL (8.8-10.2); CREATININE FOR GFR 1.33 MG/DL (0.55-1.30); GLOMERULAR FILTRATION RATE 40.5 (>32); PHOSPHORUS LEVEL 3.7 MG/DL (2.5-4.9); POTASSIUM SERUM 4.5 MEQ/L (3.5-5.1)
== END ==
PROVIDERS: ATTEND Internal Medicine
DX: I50.9 Heart failure, unspecified (principal)

== ENCOUNTER → 2022-04-11 | Outpatient (REF) | payer MEDICARE, MEDICAID ==
[2022-04-11 10:53] LABS: BASO % 0.3 % (0.0-1.0); EOS # 0.2 10^3/uL (0.0-0.5); HEMATOCRIT 34.3 % (36.0-47.0); HEMOGLOBIN 10.4 g/dl (12.0-15.5); LYMPH # 0.9 10^3/uL (1.5-5.0); LYMPH % 9.8 % (24.0-44.0); MEAN CORPUSCULAR HEMOGLOBIN 32.1 pg (27.0-33.0); MEAN CORPUSCULAR HGB CONC 30.3 g/dl (32.0-36.5); MEAN CORPUSCULAR VOLUME 105.9 fl (80.0-96.0); MONO % 10.5 % (2.0-8.0); NEUTROPHILS # 7.1 10^3/uL (1.5-8.5); NEUTROPHILS % 74.5 % (36.0-66.0); PLATELET COUNT, AUTOMATED 198 10^3/uL (150-450); RED BLOOD COUNT 3.24 10^6/uL (4.00-5.40); WHITE BLOOD COUNT 9.6 10^3/uL (4.0-10.0)
[2022-04-11 11:29] LABS: ALBUMIN 2.8 GM/DL (3.2-5.2); CALCIUM LEVEL 9.1 MG/DL (8.8-10.2); CREATININE FOR GFR 1.18 MG/DL (0.55-1.30); GLOMERULAR FILTRATION RATE 46.5 (>32); PHOSPHORUS LEVEL 3.7 MG/DL (2.5-4.9); POTASSIUM SERUM 4.1 MEQ/L (3.5-5.1)
== END ==
PROVIDERS: ATTEND Internal Medicine
DX: I50.9 Heart failure, unspecified (principal)

== ENCOUNTER → 2022-04-13 | Outpatient (CLI) | payer MEDICARE, MEDICAID | LOC: M PAIN 11:30 | PROVIDERS: ATTEND Nurse Practitioner Family | DX: M25.511 Pain in right shoulder (principal); M19.011 Primary osteoarthritis, right shoulder; J44.9 Chronic obstructive pulmonary disease, unspecified; F32.A Depression, unspecified; K21.9 Gastro-esophageal reflux disease without esophagitis; I10 Essential (primary) hypertension; I25.10 Atherosclerotic heart disease of native coronary artery without angina pectoris; E66.9 Obesity, unspecified; E11.319 Type 2 diabetes mellitus with unspecified diabetic retinopathy without macular edema; G47.30 Sleep apnea, unspecified; M19.90 Unspecified osteoarthritis, unspecified site; D64.9 Anemia, unspecified; M81.0 Age-related osteoporosis without current pathological fracture; H40.9 Unspecified glaucoma; F41.9 Anxiety disorder, unspecified; K59.00 Constipation, unspecified; E11.42 Type 2 diabetes mellitus with diabetic polyneuropathy; Z87.891 Personal history of nicotine dependence; Z79.899 Other long term (current) drug therapy; Z68.39 Body mass index [BMI] 39.0-39.9, adult ==

== ENCOUNTER → 2022-05-18 | Outpatient (REF) | payer MEDICARE, MEDICAID ==
[2022-05-18 11:56] LABS: HEMATOCRIT 33.6 % (36.0-47.0); HEMOGLOBIN 10.5 g/dl (12.0-15.5); MEAN CORPUSCULAR HEMOGLOBIN 33.4 pg (27.0-33.0); MEAN CORPUSCULAR HGB CONC 31.3 g/dl (32.0-36.5); PLATELET COUNT, AUTOMATED 188 10^3/uL (150-450); RED BLOOD COUNT 3.14 10^6/uL (4.00-5.40); WHITE BLOOD COUNT 9.1 10^3/uL (4.0-10.0)
[2022-05-18 12:45] LABS: ALBUMIN 2.6 GM/DL (3.2-5.2); BILIRUBIN,TOTAL 0.3 MG/DL (0.2-1.0); CALCIUM LEVEL 9.3 MG/DL (8.8-10.2); CHOLESTEROL RISK RATIO 2.578 (<5); CREATININE FOR GFR 1.03 MG/DL (0.55-1.30); GLOMERULAR FILTRATION RATE 54.3 (>32); POTASSIUM SERUM 3.5 MEQ/L (3.5-5.1); THYROID STIMULATING HORMONE 1.34 uIU/ML (0.358-3.740); TOTAL PROTEIN 5.3 GM/DL (6.4-8.2)
[2022-05-18 14:38] LABS: HEMOGLOBIN A1c 6.9 %
== END ==
PROVIDERS: ATTEND Nurse Practitioner Family
DX: E11.9 Type 2 diabetes mellitus without complications (principal)

== ENCOUNTER → 2022-06-15 | Outpatient (REF) | payer MEDICARE, MEDICAID ==
[2022-06-15 15:57] LABS: BASO # 0.1 10^3/uL (0.0-0.2); BASO % 0.6 % (0.0-1.0); EOS # 0.2 10^3/uL (0.0-0.5); EOS % 2.3 % (0.0-3.0); HEMATOCRIT 36.4 % (36.0-47.0); HEMOGLOBIN 11.4 g/dl (12.0-15.5); LYMPH # 0.8 10^3/uL (1.5-5.0); LYMPH % 7.9 % (24.0-44.0); MEAN CORPUSCULAR HEMOGLOBIN 32.9 pg (27.0-33.0); MEAN CORPUSCULAR HGB CONC 31.3 g/dl (32.0-36.5); MEAN CORPUSCULAR VOLUME 104.9 fl (80.0-96.0); MONO # 0.7 10^3/uL (0.0-0.8); MONO % 7.2 % (2.0-8.0); NEUTROPHILS # 7.8 10^3/uL (1.5-8.5); PLATELET COUNT, AUTOMATED 197 10^3/uL (150-450); RED BLOOD COUNT 3.47 10^6/uL (4.00-5.40); WHITE BLOOD COUNT 9.7 10^3/uL (4.0-10.0)
[2022-06-15 16:53] LABS: ALBUMIN 2.9 GM/DL (3.2-5.2); CALCIUM LEVEL 9.5 MG/DL (8.8-10.2); CREATININE FOR GFR 1.05 MG/DL (0.55-1.30); GLOMERULAR FILTRATION RATE 53.2 (>32); PHOSPHORUS LEVEL 3.6 MG/DL (2.5-4.9); POTASSIUM SERUM 3.5 MEQ/L (3.5-5.1)
== END ==
PROVIDERS: ATTEND Nurse Practitioner Family
DX: I50.9 Heart failure, unspecified (principal)

== ENCOUNTER → 2022-06-22 | Outpatient (CLI) | payer MEDICARE, MEDICAID | LOC: M RAD 11:31 | PROVIDERS: ATTEND Nurse Practitioner Family | DX: M79.89 Other specified soft tissue disorders (principal) ==

== ENCOUNTER 2022-07-07 08:11 | Outpatient (RCR) | payer MEDICARE, MEDICAID | END 2022-07-11 23:59 | disposition home or self-care (01) | LOC: M PT 08:11 | PROVIDERS: ATTEND Internal Medicine | DX: I89.0 Lymphedema, not elsewhere classified (principal) ==

== ENCOUNTER → 2022-07-18 | Outpatient (REF) | payer MEDICARE, MEDICAID ==
[2022-07-18 14:29] LABS: BASO % 0.5 % (0.0-1.0); EOS # 0.2 10^3/uL (0.0-0.5); HEMATOCRIT 35.3 % (36.0-47.0); HEMOGLOBIN 10.5 g/dl (12.0-15.5); LYMPH # 0.8 10^3/uL (1.5-5.0); LYMPH % 10.2 % (24.0-44.0); MEAN CORPUSCULAR HEMOGLOBIN 31.9 pg (27.0-33.0); MEAN CORPUSCULAR HGB CONC 29.7 g/dl (32.0-36.5); MEAN CORPUSCULAR VOLUME 107.3 fl (80.0-96.0); MONO # 0.9 10^3/uL (0.0-0.8); MONO % 11.6 % (2.0-8.0); NEUTROPHILS # 5.6 10^3/uL (1.5-8.5); NEUTROPHILS % 73.3 % (36.0-66.0); PLATELET COUNT, AUTOMATED 166 10^3/uL (150-450); RED BLOOD COUNT 3.29 10^6/uL (4.00-5.40); WHITE BLOOD COUNT 7.7 10^3/uL (4.0-10.0)
[2022-07-18 15:32] LABS: CALCIUM LEVEL 9.4 MG/DL (8.8-10.2); CREATININE FOR GFR 1.02 MG/DL (0.55-1.30); PHOSPHORUS LEVEL 3.7 MG/DL (2.5-4.9); POTASSIUM SERUM 3.8 MEQ/L (3.5-5.1)
[2022-07-18 16:26] LABS: PTH INTACT 39.4 PG/ML (18.5-88.0); TOTAL 25(OH) VITAMIN D 60.8 NG/ML (30.0-100.0)
== END ==
PROVIDERS: ATTEND Nurse Practitioner Family
DX: E11.9 Type 2 diabetes mellitus without complications (principal); Z79.899 Other long term (current) drug therapy

== ENCOUNTER → 2022-07-21 | Outpatient (CLI) | payer MEDICARE, MEDICAID | LOC: M SLEEP 20:00 | PROVIDERS: ATTEND Internal Medicine Critical Care Medicine | DX: G47.33 Obstructive sleep apnea (adult) (pediatric) (principal) ==

== ENCOUNTER 2022-08-09 09:10 | Outpatient (RCR) | payer MEDICARE, MEDICAID | END 2022-08-10 23:59 | disposition home or self-care (01) | LOC: M PT 09:10 | PROVIDERS: ATTEND Internal Medicine | DX: I89.0 Lymphedema, not elsewhere classified (principal) ==

== ENCOUNTER 2022-09-01 09:02 | Outpatient (RCR) | payer MEDICARE, MEDICAID | END 2022-09-10 | LOC: M PT 09:02 | PROVIDERS: ATTEND Internal Medicine | DX: I89.0 Lymphedema, not elsewhere classified (principal) ==

== ENCOUNTER → 2022-09-12 | Outpatient (REF) | payer MEDICARE, MEDICAID ==
[2022-09-12 09:21] LABS: HEMATOCRIT 33.5 % (36.0-47.0); MEAN CORPUSCULAR HEMOGLOBIN 32.3 pg (27.0-33.0); MEAN CORPUSCULAR HGB CONC 29.9 g/dl (32.0-36.5); MEAN CORPUSCULAR VOLUME 108.1 fl (80.0-96.0); PLATELET COUNT, AUTOMATED 148 10^3/uL (150-450); WHITE BLOOD COUNT 4.9 10^3/uL (4.0-10.0)
[2022-09-12 09:43] LABS: ALBUMIN 2.7 G/DL (3.2-5.2); ALKALINE PHOSPHATASE 68 U/L (46-116); ALT/SGPT < 9 U/L (7.0-40); AST/SGOT 11 U/L (<34); BILIRUBIN,TOTAL 0.2 MG/DL (0.3-1.2); BLOOD UREA NITROGEN 32 MG/DL (9-23); CALCIUM LEVEL 8.9 MG/DL (8.3-10.6); CARBON DIOXIDE LEVEL 31 MMOL/L (20-31); CHLORIDE LEVEL 100 MMOL/L (98-107); CREATININE FOR GFR 1.08 MG/DL (0.55-1.30); GLOMERULAR FILTRATION RATE 51.5 (>32); GLUCOSE, FASTING 124 MG/DL (74-106); SODIUM LEVEL 142 MMOL/L (136-145); TOTAL PROTEIN 5.4 G/DL (5.7-8.2)
== END ==
PROVIDERS: ATTEND Internal Medicine
DX: J11.1 Influenza due to unidentified influenza virus with other respiratory manifestations (principal)

== ENCOUNTER → 2022-09-12 | Outpatient (REF) | payer MEDICARE, MEDICAID | PROVIDERS: ATTEND Nurse Practitioner Family | DX: R05.9 Cough, unspecified (principal) ==

== ENCOUNTER → 2022-09-13 | Outpatient (REF) | payer MEDICARE, MEDICAID | PROVIDERS: ATTEND Internal Medicine | DX: I50.9 Heart failure, unspecified (principal) ==

== ENCOUNTER → 2022-09-19 | Outpatient (REF) | payer MEDICARE, MEDICAID ==
[2022-09-19 11:41] LABS: HEMATOCRIT 35.5 % (36.0-47.0); HEMOGLOBIN 10.7 g/dl (12.0-15.5); MEAN CORPUSCULAR HEMOGLOBIN 32.2 pg (27.0-33.0); MEAN CORPUSCULAR HGB CONC 30.1 g/dl (32.0-36.5); MEAN CORPUSCULAR VOLUME 106.9 fl (80.0-96.0); PLATELET COUNT, AUTOMATED 143 10^3/uL (150-450); RED BLOOD COUNT 3.32 10^6/uL (4.00-5.40); WHITE BLOOD COUNT 6.7 10^3/uL (4.0-10.0)
[2022-09-19 11:57] LABS: CALCIUM LEVEL 8.9 MG/DL (8.3-10.6); CREATININE FOR GFR 0.97 MG/DL (0.55-1.30); GLOMERULAR FILTRATION RATE 58.2 (>32); POTASSIUM SERUM 3.9 MMOL/L (3.5-5.1)
== END ==
PROVIDERS: ATTEND Nurse Practitioner Family
DX: J11.1 Influenza due to unidentified influenza virus with other respiratory manifestations (principal)

== ENCOUNTER 2022-11-07 09:42 | Outpatient (RCR) | payer MEDICARE, MEDICAID | END 2022-11-08 | LOC: M PT 09:42 | PROVIDERS: ATTEND Internal Medicine | DX: I89.0 Lymphedema, not elsewhere classified (principal) ==

== ENCOUNTER → 2022-11-09 | Outpatient (REF) | payer MEDICARE, MEDICAID ==
[2022-11-09 12:42] LABS: HEMATOCRIT 36.7 % (36.0-47.0); HEMOGLOBIN 11.2 g/dl (12.0-15.5); MEAN CORPUSCULAR HEMOGLOBIN 32.6 pg (27.0-33.0); MEAN CORPUSCULAR HGB CONC 30.5 g/dl (32.0-36.5); MEAN CORPUSCULAR VOLUME 106.7 fl (80.0-96.0); PLATELET COUNT, AUTOMATED 214 10^3/uL (150-450); RED BLOOD COUNT 3.44 10^6/uL (4.00-5.40); WHITE BLOOD COUNT 8.3 10^3/uL (4.0-10.0)
[2022-11-09 13:25] LABS: HEMOGLOBIN A1c 5.6 % (4.0-6.0)
[2022-11-09 14:13] LABS: BILIRUBIN,TOTAL 0.6 MG/DL (0.3-1.2); CALCIUM LEVEL 9.7 MG/DL (8.3-10.6); CHOLESTEROL RISK RATIO 3.3 (<5); CREATININE FOR GFR 0.99 MG/DL (0.55-1.30); GLOMERULAR FILTRATION RATE 56.8 (>32); HDL CHOLESTEROL 60.3 MG/DL (>40); LDL CHOLESTEROL 90.3 MG/DL (<100); THYROID STIMULATING HORMONE 1.472 uIU/ML (0.55-4.78); TOTAL PROTEIN 5.7 G/DL (5.7-8.2)
== END ==
PROVIDERS: ATTEND Nurse Practitioner Family
DX: J44.9 Chronic obstructive pulmonary disease, unspecified (principal); Z79.899 Other long term (current) drug therapy

== ENCOUNTER → 2022-11-28 | Outpatient (REF) | payer MEDICARE, MEDICAID ==
[2022-11-28 12:51] LABS: HEMOGLOBIN 11.4 g/dl (12.0-15.5); MEAN CORPUSCULAR HEMOGLOBIN 33.2 pg (27.0-33.0); MEAN CORPUSCULAR HGB CONC 30.8 g/dl (32.0-36.5); MEAN CORPUSCULAR VOLUME 107.9 fl (80.0-96.0); PLATELET COUNT, AUTOMATED 193 10^3/uL (150-450); RED BLOOD COUNT 3.43 10^6/uL (4.00-5.40); WHITE BLOOD COUNT 12.9 10^3/uL (4.0-10.0)
[2022-11-28 13:04] LABS: BLOOD UREA NITROGEN 24 MG/DL (9-23); CALCIUM LEVEL 8.5 MG/DL (8.3-10.6); CARBON DIOXIDE LEVEL 38 MMOL/L (20-31); CHLORIDE LEVEL 97 MMOL/L (98-107); CREATININE FOR GFR 0.89 MG/DL (0.55-1.30); GLOMERULAR FILTRATION RATE > 60.0 (>32); GLUCOSE, FASTING 173 MG/DL (74-106); POTASSIUM SERUM 4.2 MMOL/L (3.5-5.1); SODIUM LEVEL 139 MMOL/L (136-145)
== END ==
PROVIDERS: ATTEND Internal Medicine
DX: R11.0 Nausea (principal)

== ENCOUNTER → 2022-11-28 | Outpatient (REF) | payer MEDICARE, MEDICAID | PROVIDERS: ATTEND Internal Medicine | DX: R06.09 Other forms of dyspnea (principal) ==

== ENCOUNTER 2022-11-30 09:51 | Outpatient (RCR) | payer MEDICARE, MEDICAID | END 2022-12-09 | LOC: M PT 09:51 | PROVIDERS: ATTEND Internal Medicine | DX: I89.0 Lymphedema, not elsewhere classified (principal) ==

== ENCOUNTER → 2022-12-07 | Outpatient (REF) | payer MEDICARE, MEDICAID ==
[2022-12-07 10:27] LABS: BASO % 0.5 % (0.0-1.0); EOS # 0.2 10^3/uL (0.0-0.5); EOS % 2.5 % (0.0-3.0); HEMATOCRIT 33.9 % (36.0-47.0); HEMOGLOBIN 10.1 g/dl (12.0-15.5); LYMPH # 0.9 10^3/uL (1.5-5.0); LYMPH % 10.7 % (24.0-44.0); MEAN CORPUSCULAR HEMOGLOBIN 32.1 pg (27.0-33.0); MEAN CORPUSCULAR HGB CONC 29.8 g/dl (32.0-36.5); MEAN CORPUSCULAR VOLUME 107.6 fl (80.0-96.0); MONO # 0.7 10^3/uL (0.0-0.8); MONO % 8.3 % (2.0-8.0); NEUTROPHILS # 6.5 10^3/uL (1.5-8.5); NEUTROPHILS % 76.4 % (36.0-66.0); PLATELET COUNT, AUTOMATED 178 10^3/uL (150-450); RED BLOOD COUNT 3.15 10^6/uL (4.00-5.40); WHITE BLOOD COUNT 8.5 10^3/uL (4.0-10.0)
[2022-12-07 11:03] LABS: ALBUMIN 2.7 G/DL (3.2-5.2); ALKALINE PHOSPHATASE 55 U/L (46-116); ALT/SGPT 11 U/L (7.0-40); AST/SGOT < 8 U/L (<34); BILIRUBIN,TOTAL 0.3 MG/DL (0.3-1.2); BLOOD UREA NITROGEN 22 MG/DL (9-23); CALCIUM LEVEL 8.9 MG/DL (8.3-10.6); CARBON DIOXIDE LEVEL 36 MMOL/L (20-31); CHLORIDE LEVEL 99 MMOL/L (98-107); CREATININE FOR GFR 0.97 MG/DL (0.55-1.30); GLOMERULAR FILTRATION RATE 58.1 (>32); GLUCOSE, FASTING 134 MG/DL (74-106); POTASSIUM SERUM 3.9 MMOL/L (3.5-5.1); SODIUM LEVEL 141 MMOL/L (136-145); TOTAL PROTEIN 5.2 G/DL (5.7-8.2)
== END ==
PROVIDERS: ATTEND Nurse Practitioner Family
DX: R11.0 Nausea (principal)

== ENCOUNTER → 2022-12-14 | Outpatient (REF) | payer MEDICARE, MEDICAID ==
[2022-12-14 23:49] LABS: APPEARANCE, URINE CLEAR (CLEAR); BACTERIA, URINE AUTO 1+ (NEGATIVE); BILIRUBIN, URINE AUTO NEGATIVE (NEGATIVE); BLOOD, URINE BLOOD NEGATIVE (NEGATIVE); COLOR, URINE STRAW (YELLOW); GLUCOSE, URINE (UA) AUTO NEGATIVE (NEGATIVE); KETONE, URINE AUTO NEGATIVE (NEGATIVE); LEUKOCYTE ESTERASE, URINE AUTO 2+ (NEGATIVE); NITRITE, URINE AUTO NEGATIVE (NEGATIVE); PROTEIN, URINE AUTO NEGATIVE (NEGATIVE); RBC, URINE AUTO 1 /HPF (0-3); SPECIFIC GRAVITY URINE AUTO 1.006 (1.002-1.035); SQUAMOUS EPITHELIAL CELL UR AU 1 /HPF (0-6); UROBILINOGEN, URINE AUTO 0.2 mg/dL (0.0-2.0); WBC, URINE AUTO 24 /HPF (0-3)
== END ==
PROVIDERS: ATTEND Internal Medicine
DX: N39.0 Urinary tract infection, site not specified (principal)

== ENCOUNTER → 2022-12-15 | Outpatient (REF) | payer MEDICARE, MEDICAID | PROVIDERS: ATTEND Nurse Practitioner Family | DX: N39.0 Urinary tract infection, site not specified (principal); Z53.8 Procedure and treatment not carried out for other reasons ==

== ENCOUNTER → 2022-12-22 | Outpatient (CLI) | payer MEDICARE, MEDICAID ==
[~2022-12-22] MED LIST changes: +GASTROGRAFIN SOLUTION 30ML As Ordered ONE; +ISOVUE-370 76% 100ML VIAL As Ordered ONE
== END ==
LOC: M RAD 07:59
PROVIDERS: ATTEND Nurse Practitioner Family
DX: N82.3 Fistula of vagina to large intestine (principal); R16.1 Splenomegaly, not elsewhere classified; N26.1 Atrophy of kidney (terminal); N28.1 Cyst of kidney, acquired; Q63.1 Lobulated, fused and horseshoe kidney; M51.34 Other intervertebral disc degeneration, thoracic region; M51.36 Other intervertebral disc degeneration, lumbar region; M16.0 Bilateral primary osteoarthritis of hip
CPT/HCPCS: 74177; Q9963; Q9967

== ENCOUNTER 2023-01-06 12:45 | Outpatient (RCR) | payer MEDICARE, MEDICAID ==
[~2023-01-06 12:45] MED LIST changes: -GASTROGRAFIN SOLUTION 30ML As Ordered ONE; -ISOVUE-370 76% 100ML VIAL As Ordered ONE
== END 2023-01-08 ==
LOC: M PT 12:45
PROVIDERS: ATTEND Internal Medicine
DX: I89.0 Lymphedema, not elsewhere classified (principal)

== ENCOUNTER → 2023-01-16 | Outpatient (REF) | payer MEDICARE, MEDICAID ==
[2023-01-16 11:20] LABS: BASO # 0.1 10^3/uL (0.0-0.2); BASO % 0.7 % (0.0-1.0); EOS # 0.2 10^3/uL (0.0-0.5); EOS % 2.3 % (0.0-3.0); HEMATOCRIT 33.9 % (36.0-47.0); HEMOGLOBIN 10.3 g/dl (12.0-15.5); MEAN CORPUSCULAR HEMOGLOBIN 32.4 pg (27.0-33.0); MEAN CORPUSCULAR HGB CONC 30.4 g/dl (32.0-36.5); MEAN CORPUSCULAR VOLUME 106.6 fl (80.0-96.0); MONO # 0.8 10^3/uL (0.0-0.8); MONO % 9.1 % (2.0-8.0); NEUTROPHILS # 6.2 10^3/uL (1.5-8.5); NEUTROPHILS % 74.9 % (36.0-66.0); PLATELET COUNT, AUTOMATED 162 10^3/uL (150-450); RED BLOOD COUNT 3.18 10^6/uL (4.00-5.40); WHITE BLOOD COUNT 8.3 10^3/uL (4.0-10.0)
[2023-01-16 11:49] LABS: ALBUMIN 2.9 G/DL (3.2-5.2); CALCIUM LEVEL 9.2 MG/DL (8.3-10.6); CREATININE FOR GFR 1.08 MG/DL (0.55-1.30); GLOMERULAR FILTRATION RATE 51.3 (>32); PHOSPHORUS LEVEL 4.4 MG/DL (2.4-5.1); POTASSIUM SERUM 3.7 MMOL/L (3.5-5.1)
[2023-01-17 11:33] LABS: APPEARANCE, URINE CLOUDY (CLEAR); BACTERIA, URINE AUTO 1+ (NEGATIVE); BILIRUBIN, URINE AUTO NEGATIVE (NEGATIVE); BLOOD, URINE BLOOD NEGATIVE (NEGATIVE); COLOR, URINE YELLOW (YELLOW); GLUCOSE, URINE (UA) AUTO NEGATIVE (NEGATIVE); KETONE, URINE AUTO NEGATIVE (NEGATIVE); LEUKOCYTE ESTERASE, URINE AUTO 3+ (NEGATIVE); MUCUS, URINE SMALL (NEGATIVE); NITRITE, URINE AUTO NEGATIVE (NEGATIVE); PROTEIN, URINE AUTO NEGATIVE (NEGATIVE); RBC, URINE AUTO 5 /HPF (0-3); SPECIFIC GRAVITY URINE AUTO 1.008 (1.002-1.035); SQUAMOUS EPITHELIAL CELL UR AU 1 /HPF (0-6); UROBILINOGEN, URINE AUTO 0.2 mg/dL (0.0-2.0); WBC, URINE AUTO TNTC /HPF (0-3)
[2023-01-17 19:17] LABS: TOTAL PROTEIN,RANDOM URINE 17.4 MG/DL (0.0-14.0)
[2023-01-17 19:22] LABS: CREATININE,RANDOM URINE 22.3 MG/DL
== END ==
PROVIDERS: ATTEND Nurse Practitioner Family
DX: N18.9 Chronic kidney disease, unspecified (principal)

== ENCOUNTER → 2023-01-17 | Outpatient (CLI) | payer MEDICARE, MEDICAID | LOC: M RAD 10:20 | PROVIDERS: ATTEND Nurse Practitioner Family | DX: R93.5 Abnormal findings on diagnostic imaging of other abdominal regions, including retroperitoneum (principal) ==

== ENCOUNTER → 2023-03-02 | Outpatient (REF) | payer MEDICARE, MEDICAID | PROVIDERS: ATTEND Internal Medicine | DX: N39.0 Urinary tract infection, site not specified (principal) ==

== ENCOUNTER 2023-03-07 09:37 | Outpatient (RCR) | payer MEDICARE, MEDICAID | END 2023-03-10 | LOC: M PT 09:37 | PROVIDERS: ATTEND Internal Medicine | DX: I89.0 Lymphedema, not elsewhere classified (principal) ==

== ENCOUNTER → 2023-03-21 | Outpatient (REF) | payer MEDICARE, MEDICAID | PROVIDERS: ATTEND Internal Medicine | DX: R06.02 Shortness of breath (principal); I70.0 Atherosclerosis of aorta ==

== ENCOUNTER → 2023-03-22 | Outpatient (REF) | payer MEDICARE, MEDICAID ==
[2023-03-22 08:48] LABS: BASO # 0.1 10^3/uL (0.0-0.2); BASO % 0.8 % (0.0-1.0); EOS # 0.2 10^3/uL (0.0-0.5); EOS % 2.4 % (0.0-3.0); HEMATOCRIT 31.7 % (36.0-47.0); HEMOGLOBIN 9.9 g/dl (12.0-15.5); LYMPH # 1.4 10^3/uL (1.5-5.0); LYMPH % 16.4 % (24.0-44.0); MEAN CORPUSCULAR HGB CONC 31.2 g/dl (32.0-36.5); MEAN CORPUSCULAR VOLUME 105.7 fl (80.0-96.0); MONO % 11.3 % (2.0-8.0); NEUTROPHILS # 5.9 10^3/uL (1.5-8.5); NEUTROPHILS % 66.9 % (36.0-66.0); PLATELET COUNT, AUTOMATED 204 10^3/uL (150-450); WHITE BLOOD COUNT 8.8 10^3/uL (4.0-10.0)
[2023-03-22 09:17] LABS: CALCIUM LEVEL 10.1 MG/DL (8.3-10.6); CREATININE FOR GFR 1.12 MG/DL (0.55-1.30); GLOMERULAR FILTRATION RATE 49.2 (>32); POTASSIUM SERUM 4.2 MMOL/L (3.5-5.1)
== END ==
PROVIDERS: ATTEND Physician Assistant
DX: I50.9 Heart failure, unspecified (principal)

== ENCOUNTER → 2023-04-10 | Outpatient (RCR) | payer MEDICARE, MEDICAID | LOC: M PT 03-17 10:30 | PROVIDERS: ATTEND Internal Medicine | DX: I89.0 Lymphedema, not elsewhere classified (principal) ==

== ENCOUNTER 2023-04-27 11:56 | Outpatient (RCR) | payer MEDICARE, MEDICAID | END 2023-05-11 | LOC: M PT 11:56 | PROVIDERS: ATTEND Internal Medicine | DX: I89.0 Lymphedema, not elsewhere classified (principal) ==

== ENCOUNTER → 2023-05-17 | Outpatient (REF) | payer MEDICARE, MEDICAID ==
[2023-05-17 09:17] LABS: HEMATOCRIT 30.4 % (36.0-47.0); HEMOGLOBIN 9.3 g/dl (12.0-15.5); MEAN CORPUSCULAR HEMOGLOBIN 32.9 pg (27.0-33.0); MEAN CORPUSCULAR HGB CONC 30.6 g/dl (32.0-36.5); MEAN CORPUSCULAR VOLUME 107.4 fl (80.0-96.0); PLATELET COUNT, AUTOMATED 210 10^3/uL (150-450); RED BLOOD COUNT 2.83 10^6/uL (4.00-5.40); WHITE BLOOD COUNT 10.6 10^3/uL (4.0-10.0)
[2023-05-17 09:47] LABS: ALBUMIN 2.6 G/DL (3.2-5.2); ALKALINE PHOSPHATASE 71 U/L (46-116); ALT/SGPT < 9 U/L (7.0-40); AST/SGOT < 8 U/L (<34); BILIRUBIN,TOTAL 0.3 MG/DL (0.3-1.2); BLOOD UREA NITROGEN 21 MG/DL (9-23); CALCIUM LEVEL 9.1 MG/DL (8.3-10.6); CARBON DIOXIDE LEVEL 37 MMOL/L (20-31); CHLORIDE LEVEL 95 MMOL/L (98-107); CHOLESTEROL LEVEL 195 MG/DL (<200); CHOLESTEROL RISK RATIO 3.15 (<5); CREATININE FOR GFR 1.11 MG/DL (0.55-1.30); GLOMERULAR FILTRATION RATE 49.7 (>32); GLUCOSE, FASTING 174 MG/DL (74-106); HDL CHOLESTEROL 61.8 MG/DL (>40); NON-HDL-C 133.2 MG/DL; POTASSIUM SERUM 3.8 MMOL/L (3.5-5.1); SODIUM LEVEL 137 MMOL/L (136-145); THYROID STIMULATING HORMONE 1.544 uIU/ML (0.55-4.78); TOTAL PROTEIN 5.3 G/DL (5.7-8.2); TRIGLYCERIDES LEVEL 231 MG/DL (<150)
[2023-05-17 09:49] LABS: HEMOGLOBIN A1c 6.8 % (4.0-6.0)
== END ==
PROVIDERS: ATTEND Nurse Practitioner Family
DX: E11.9 Type 2 diabetes mellitus without complications (principal)

== ENCOUNTER 2023-06-26 09:46 | Inpatient (IN) | payer MEDICARE, MEDICAID ==
[~2023-06-26] VITALS: Ht 170.2 cm; Wt 104.6 kg
[2023-06-26] MEDS ORDERED: NS 1,000 ML IV ONE (10:30)
[2023-06-26 10:50] LABS: BASO # 0.1 10^3/uL (0.0-0.2); BASO % 0.4 % (0.0-1.0); EOS # 0.3 10^3/uL (0.0-0.5); EOS % 1.8 % (0.0-3.0); HEMATOCRIT 33.8 % (36.0-47.0); HEMOGLOBIN 10.3 g/dl (12.0-15.5); LYMPH # 0.9 10^3/uL (1.5-5.0); LYMPH % 5.5 % (24.0-44.0); MEAN CORPUSCULAR HEMOGLOBIN 32.5 pg (27.0-33.0); MEAN CORPUSCULAR HGB CONC 30.5 g/dl (32.0-36.5); MEAN CORPUSCULAR VOLUME 106.6 fl (80.0-96.0); MONO # 0.8 10^3/uL (0.0-0.8); MONO % 5.2 % (2.0-8.0); NEUTROPHILS # 13.4 10^3/uL (1.5-8.5); NEUTROPHILS % 85.1 % (36.0-66.0); PLATELET COUNT, AUTOMATED 244 10^3/uL (150-450); RED BLOOD COUNT 3.17 10^6/uL (4.00-5.40); WHITE BLOOD COUNT 15.7 10^3/uL (4.0-10.0)
[2023-06-26] MEDS ORDERED: ISOVUE-370 76% 100ML VIAL As Ordered ONE (10:59)
[2023-06-26 11:01] LABS: INR 1.1; PROTHROMBIN TIME 13.9 SECONDS (12.5-14.5)
[2023-06-26 11:02] LABS: PARTIAL THROMBOPLASTIN TIME 33.6 SECONDS (24.8-34.2)
[2023-06-26 11:10] LABS: LIPASE 33 U/L (12-53)
[2023-06-26] MEDS ORDERED: PIPERACILLIN/TAZOBACTAM SOD 4.5 GM in D5W MINI-BAG PLUS 50 ML IV ONE (11:10)
[2023-06-26 11:11] LABS: AMYLASE 49 U/L (30-118)
[2023-06-26 11:12] LABS: ALBUMIN 2.8 G/DL (3.2-5.2); ALKALINE PHOSPHATASE 84 U/L (46-116); ALT/SGPT < 9 U/L (7.0-40); AST/SGOT < 8 U/L (<34); BILIRUBIN,DIRECT 0.1 MG/DL (<0.4); BILIRUBIN,TOTAL 0.3 MG/DL (0.3-1.2); TOTAL PROTEIN 5.7 G/DL (5.7-8.2)
[2023-06-26] MEDS ORDERED: LIDOCAINE 2% 5ML JELLY UROJET TOP ONE (11:25)
[2023-06-26 11:28] LABS: RSV AMPLIFICATION NEGATIVE (NEGATIVE)
[2023-06-26] MEDS ORDERED: MED REC IN PROGRESS XX SCH (12:05)
[2023-06-26] MEDS ORDERED: IPRATROPIUM 0.02% SOLN 0.5MG 2.5ML NEB INH PRN (12:20)
[2023-06-26] MEDS ORDERED: ACETAMINOPHEN TAB 650MG DOSE (2X325MG) PO PRN (12:20)
[2023-06-26] MEDS ORDERED: LEVALBUTEROL 1.25MG 0.5ML CONCENTRATE NEB INH PRN (12:20)
[2023-06-26 12:51] LABS: BLOOD UREA NITROGEN 19 MG/DL (9-23); CALCIUM LEVEL 8.9 MG/DL (8.3-10.6); CARBON DIOXIDE LEVEL 38 MMOL/L (20-31); CHLORIDE LEVEL 96 MMOL/L (98-107); CREATININE FOR GFR 0.94 MG/DL (0.55-1.30); GLOMERULAR FILTRATION RATE > 60.0 (>32); GLUCOSE, FASTING 151 MG/DL (74-106); POTASSIUM SERUM 4.1 MMOL/L (3.5-5.1); PROCALCITONIN 0.46 ng/ml; SODIUM LEVEL 139 MMOL/L (136-145)
[2023-06-26 13:40] LABS: MAGNESIUM LEVEL 1.7 MG/DL (1.8-2.4)
[2023-06-26 13:42] LABS: IRON (FE) 27 UG/DL (50-170); PERCENT SATURATION 12.9 % (13.2-45.0); TOTAL IRON BINDING CAPACITY 209 UG/DL (250-425)
[2023-06-26 13:46] LABS: FERRITIN 135.9 NG/ML (7.3-270.7)
[2023-06-26] MEDS: METOPROLOL TART 25 MG TABLET PO SCH ×2 (13:50→17:52)
[2023-06-26] MEDS ORDERED: MED REC CURRENTLY UNOBTAINABLE XX SCH (15:20)
[2023-06-26 15:50] VITALS: BP 168/78; TEMP 98.7; O2SAT 98
[2023-06-26] MEDS ORDERED: ACET-683 PO ×2 (16:19→17:29)
[2023-06-26] MEDS ORDERED: ARIP1TAB PO (16:19)
[2023-06-26] MEDS: ONDANSETRON 4MG 2ML VIAL IV PRN (16:32)
[2023-06-26] MEDS ORDERED: SPIR1CAP INH (16:50)
[2023-06-26] MEDS ORDERED: AQUAOIN12 TP (16:50)
[2023-06-26] MEDS ORDERED: DULO60CA35 PO (16:50)
[2023-06-26] MEDS ORDERED: INSU100I48 SC (16:50)
[2023-06-26] MEDS ORDERED: LEVO100T5 PO (16:50)
[2023-06-26] MEDS ORDERED: ROCA0.25 PO (16:50)
[2023-06-26] MEDS ORDERED: POTA1TAB23 PO (16:50)
[2023-06-26] MEDS ORDERED: ROPI0.5T33 PO (16:50)
[2023-06-26] MEDS ORDERED: ASPI81CH33 PO (16:50)
[2023-06-26] MEDS ORDERED: FURO40TA2 PO (16:50)
[2023-06-26] MEDS ORDERED: ROFL500T PO (16:50)
[2023-06-26] MEDS ORDERED: DRIS50003 PO (16:50)
[2023-06-26] MEDS ORDERED: ALLO100T PO (16:50)
[2023-06-26] MEDS ORDERED: PRED5TA PO (16:50)
[2023-06-26] MEDS ORDERED: DOCU100C16 PO (16:50)
[2023-06-26] MEDS ORDERED: LEXA1TAB2 PO (16:50)
[2023-06-26] MEDS ORDERED: MONT10TA97 PO (16:50)
[2023-06-26] MEDS ORDERED: ATIV1TAB10 PO (16:50)
[2023-06-26] MEDS ORDERED: XALA0.007 OU (17:28)
[2023-06-26] MEDS ORDERED: TRAZ-252 PO (17:28)
[2023-06-26] MEDS ORDERED: TIZA2TA PO (17:28)
[2023-06-26] MEDS ORDERED: FLUT1BLS5 INH (17:28)
[2023-06-26] MEDS ORDERED: VITA500T40 PO (17:28)
[2023-06-26] MEDS ORDERED: TRUL10IN SC (17:28)
[2023-06-26] MEDS ORDERED: DULC10SU2 PR (17:29)
[2023-06-26] MEDS ORDERED: PREG50CA3 PO (17:29)
[2023-06-26] MEDS ORDERED: POLY1.4S OU (17:29)
[2023-06-26] MEDS ORDERED: BENG1CRE TOP (17:29)
[2023-06-26] MEDS ORDERED: POLY17PO10 PO (17:29)
[2023-06-26] MEDS ORDERED: SENN-188 PO (17:29)
[2023-06-26] MEDS ORDERED: FENT1PAT25 TOP (17:29)
[2023-06-26] MEDS ORDERED: CARV6.25 PO (17:29)
[2023-06-26] MEDS ORDERED: BUSP5TA PO (17:29)
[2023-06-26] MEDS ORDERED: IPRA0.00 INH (17:29)
[2023-06-26] MEDS ORDERED: MILKSUS3 PO (17:31)
[2023-06-26] MEDS ORDERED: OXYC-517 PO (17:31)
[2023-06-26] MEDS ORDERED: ALBU8.5H INH (17:44)
[2023-06-26] MEDS ORDERED: HOME MED LIST COMPLETE! XX SCH (17:45)
[2023-06-26 17:52] VITALS: BP 132/70
[2023-06-26] MEDS ORDERED: METOPROLOL 5 MG/5 ML VIAL IV STA (18:38)
[2023-06-26] MEDS ORDERED: dilTIAZem 25MG/5ML VIAL IV STA (18:39)
[2023-06-26] MEDS ORDERED: PROMETHAZINE 25MG/ML 1ML VIAL IV ONE (18:40)
[2023-06-26] MEDS ORDERED: DEXTROSE 50% 50ML SYRINGE IV PRN (18:40)
[2023-06-26] MEDS ORDERED: BISACODYL 10MG SUPP PR PRN (18:40)
[2023-06-26] MEDS ORDERED: MOM 30ML SUSPENSION UDC PO PRN (18:40)
[2023-06-26] MEDS ORDERED: GLUCOSE 4GM CHEW TABLET PO PRN (18:40)
[2023-06-26] MEDS ORDERED: GLUCAGON INJ 1MG VIAL SC PRN (18:40)
[2023-06-26 18:47] VITALS: BP 122/68
[2023-06-26] MEDS: METOCLOPRAMIDE INJ 10MG/2ML VIAL IV PRN (19:27)
[2023-06-26 19:30] VITALS: BP 120/60
[2023-06-26 20:00] VITALS: BP 110/70; TEMP 97.7; O2SAT 91
[2023-06-26] MEDS: INSULIN LISPRO (NovoLOG) PER UNIT SC SCH (20:14)
[2023-06-26] MEDS: IPRATROPIUM 0.02% SOLN 0.5MG 2.5ML NEB INH SCH (20:29)
[2023-06-26] MEDS: LEVALBUTEROL 1.25MG 0.5ML CONCENTRATE NEB INH SCH (20:29)
[2023-06-26] MEDS: PIPERACILLIN/TAZOBACTAM SOD 4.5 GM in D5W MINI-BAG PLUS 50 ML IV SCH (20:30)
[2023-06-26] MEDS: MIRALAX *UNIT DOSE* 17GM PACKET PO SCH (21:00)
[2023-06-26] MEDS: ARIPiprazole 10 MG TAB PO SCH ×2 (21:00→21:23)
[2023-06-26] MEDS ORDERED: diltiaZEM 125 MG in NS 100 ML IV SCH (21:00)
[2023-06-26] MEDS: LATANOPROST 0.005% OPHTH SOLN 2.5 ML OU SCH ×2 (21:00→21:23)
[2023-06-26] MEDS ORDERED: KCL 10MEQ IN D5/0.45NS 1000ML 1,000 ML IV SCH (21:00)
[2023-06-26] MEDS: SENNA 8.6 MG TAB (SENOKOT) PO SCH ×2 (21:00→21:23)
[2023-06-26] MEDS: POLYVINYL ALCOHOL OPHTH SOLN 15ML (LIQUITEARS) OU SCH ×2 (21:00→21:23)
[2023-06-26] MEDS: busPIRone 5 MG TAB PO SCH (21:23)
[2023-06-26] MEDS: rOPINIRole 0.25 MG TAB(REQUIP) PO SCH (21:23)
[2023-06-26] MEDS: LEVEMIR (INSULIN DETEMIR) 1 UNITS/0.01ML SC SCH (21:23)
[2023-06-26] MEDS: APIXABAN 5 MG TAB (ELIQUIS) PO SCH (21:23)
[2023-06-26] MEDS: DOCUSATE SODIUM 100MG CAPSULE PO SCH (21:23)
[2023-06-27] VITALS (18 sets, daily range): BP systolic 104–132; BP diastolic 55–78; TEMP 97–98.7; O2SAT 89–99
[2023-06-27] MEDS: PIPERACILLIN/TAZOBACTAM SOD 4.5 GM in D5W MINI-BAG PLUS 50 ML IV SCH ×4 (01:07→22:11)
[2023-06-27] MEDS: ANALGESIC BALM CRM 3OZ TOP PRN ×2 (01:07→22:10)
[2023-06-27] MEDS: ONDANSETRON 4MG 2ML VIAL IV PRN ×3 (03:31→17:35)
[2023-06-27] MEDS: LEVOTHYROXINE 100MCG TABLET (0.1MG) PO SCH (05:31)
[2023-06-27] MEDS: IPRATROPIUM 0.02% SOLN 0.5MG 2.5ML NEB INH SCH ×4 (07:07→19:36)
[2023-06-27] MEDS: TIOTROPIUM INHALER/CAPSULE (SPIRIVA) INH SCH (07:08)
[2023-06-27] MEDS: LEVALBUTEROL 1.25MG 0.5ML CONCENTRATE NEB INH SCH ×4 (07:08→19:36)
[2023-06-27 07:18] LABS: HEMATOCRIT 30.3 % (36.0-47.0); HEMOGLOBIN 9.3 g/dl (12.0-15.5); MEAN CORPUSCULAR HEMOGLOBIN 32.5 pg (27.0-33.0); MEAN CORPUSCULAR HGB CONC 30.7 g/dl (32.0-36.5); MEAN CORPUSCULAR VOLUME 105.9 fl (80.0-96.0); PLATELET COUNT, AUTOMATED 277 10^3/uL (150-450); RED BLOOD COUNT 2.86 10^6/uL (4.00-5.40); WHITE BLOOD COUNT 17.8 10^3/uL (4.0-10.0)
[2023-06-27 07:39] LABS: CALCIUM LEVEL 8.4 MG/DL (8.3-10.6); CREATININE FOR GFR 1.11 MG/DL (0.55-1.30); GLOMERULAR FILTRATION RATE 49.7 (>32); POTASSIUM SERUM 4.1 MMOL/L (3.5-5.1)
[2023-06-27] MEDS: MIDODRINE 5 MG TAB PO SCH ×5 (08:00→17:35)
[2023-06-27] MEDS: MIRALAX *UNIT DOSE* 17GM PACKET PO SCH ×3 (08:18→22:09)
[2023-06-27] MEDS: SENNA 8.6 MG TAB (SENOKOT) PO SCH ×4 (08:18→22:10)
[2023-06-27] MEDS: MONTELUKAST 10 MG TAB PO SCH (08:35)
[2023-06-27] MEDS: ASPIRIN 81MG CHEW TABLET PO SCH (08:35)
[2023-06-27] MEDS: allopurinoL 100 MG TAB PO SCH (08:36)
[2023-06-27] MEDS: APIXABAN 5 MG TAB (ELIQUIS) PO SCH ×2 (08:36→22:11)
[2023-06-27] MEDS: INSULIN LISPRO (NovoLOG) PER UNIT SC SCH ×4 (08:36→20:16)
[2023-06-27] MEDS: POTASSIUM CHLORIDE 10MEQ SR TABLET PO SCH (08:36)
[2023-06-27] MEDS: CYANOCOBALAMIN 500 MCG TAB PO SCH (08:36)
[2023-06-27] MEDS: busPIRone 5 MG TAB PO SCH ×2 (08:36→22:11)
[2023-06-27] MEDS: POLYVINYL ALCOHOL OPHTH SOLN 15ML (LIQUITEARS) OU SCH ×3 (08:36→21:00)
[2023-06-27] MEDS: predniSONE 5 MG TAB PO SCH (08:36)
[2023-06-27] MEDS: dilTIAZem 60 MG TAB PO SCH ×5 (08:48→17:37)
[2023-06-27] MEDS ORDERED: METOPROLOL 5 MG/5 ML VIAL IV SCH (09:00)
[2023-06-27] MEDS: PANTOPRAZOLE 40MG VIAL IV SCH ×2 (09:39→22:11)
[2023-06-27] MEDS ORDERED: FLEET ENEMA PR ONE (09:45)
[2023-06-27] MEDS ORDERED: ONDANSETRON 4MG 2ML VIAL IV ONE (09:45)
[2023-06-27] MEDS ORDERED: E-Z-PAQUE 96% w/w SUSP 176GM BTL As Ordered ONE (10:26)
[2023-06-27] MEDS ORDERED: E-Z-GAS II EFFERVESCENT PACKET (SODIUM BICARB./CITRIC ACID/SIMETHICONE) As Ordered ONE (10:26)
[2023-06-27] MEDS ORDERED: E-Z-HD 98% w/w 340GM SUSP BTL As Ordered ONE (10:26)
[2023-06-27] MEDS: SUCRALFATE SUSP 1GM/10ML UD PO SCH ×3 (12:00→17:36)
[2023-06-27] MEDS: METOCLOPRAMIDE INJ 10MG/2ML VIAL IV PRN (12:06)
[2023-06-27] MEDS: LORazepam 0.5 MG TAB PO SCH (14:42)
[2023-06-27] MEDS: LEVEMIR (INSULIN DETEMIR) 1 UNITS/0.01ML SC SCH (20:16)
[2023-06-27] MEDS: LATANOPROST 0.005% OPHTH SOLN 2.5 ML OU SCH (22:09)
[2023-06-27] MEDS: DOCUSATE SODIUM 100MG CAPSULE PO SCH (22:10)
[2023-06-27] MEDS: rOPINIRole 0.25 MG TAB(REQUIP) PO SCH (22:10)
[2023-06-27] MEDS: ARIPiprazole 10 MG TAB PO SCH (22:10)
[2023-06-28] VITALS (14 sets, daily range): BP systolic 130–144; BP diastolic 62–80; TEMP 97–98.8; O2SAT 85–99
[2023-06-28] MEDS: SUCRALFATE SUSP 1GM/10ML UD PO SCH ×5 (00:11→23:32)
[2023-06-28] MEDS: dilTIAZem 60 MG TAB PO SCH ×2 (00:11→05:41)
[2023-06-28] MEDS: PIPERACILLIN/TAZOBACTAM SOD 4.5 GM in D5W MINI-BAG PLUS 50 ML IV SCH (01:57)
[2023-06-28] MEDS: oxyCODONE 5MG TAB PO PRN (03:14)
[2023-06-28] MEDS: LEVOTHYROXINE 100MCG TABLET (0.1MG) PO SCH (05:41)
[2023-06-28 06:25] LABS: HEMATOCRIT 28.2 % (36.0-47.0); HEMOGLOBIN 8.5 g/dl (12.0-15.5); MEAN CORPUSCULAR HGB CONC 30.1 g/dl (32.0-36.5); PLATELET COUNT, AUTOMATED 230 10^3/uL (150-450); RED BLOOD COUNT 2.66 10^6/uL (4.00-5.40); WHITE BLOOD COUNT 14.7 10^3/uL (4.0-10.0)
[2023-06-28] MEDS: ONDANSETRON 4MG 2ML VIAL IV PRN ×3 (06:25→17:44)
[2023-06-28 06:58] LABS: CALCIUM LEVEL 8.5 MG/DL (8.3-10.6); CREATININE FOR GFR 1.39 MG/DL (0.55-1.30); GLOMERULAR FILTRATION RATE 38.4 (>32); POTASSIUM SERUM 3.7 MMOL/L (3.5-5.1)
[2023-06-28] MEDS: TIOTROPIUM INHALER/CAPSULE (SPIRIVA) INH SCH (07:08)
[2023-06-28] MEDS: IPRATROPIUM 0.02% SOLN 0.5MG 2.5ML NEB INH SCH ×4 (07:11→19:33)
[2023-06-28] MEDS: LEVALBUTEROL 1.25MG 0.5ML CONCENTRATE NEB INH SCH ×4 (07:11→19:34)
[2023-06-28] MEDS: INSULIN LISPRO (NovoLOG) PER UNIT SC SCH ×4 (07:30→21:00)
[2023-06-28] MEDS: MIRALAX *UNIT DOSE* 17GM PACKET PO SCH ×2 (08:14→21:37)
[2023-06-28] MEDS: PANTOPRAZOLE 40MG VIAL IV SCH ×2 (08:14→21:37)
[2023-06-28] MEDS: MONTELUKAST 10 MG TAB PO SCH (08:14)
[2023-06-28] MEDS: predniSONE 5 MG TAB PO SCH (08:15)
[2023-06-28] MEDS: ASPIRIN 81MG CHEW TABLET PO SCH (08:15)
[2023-06-28] MEDS: allopurinoL 100 MG TAB PO SCH (08:15)
[2023-06-28] MEDS: SENNA 8.6 MG TAB (SENOKOT) PO SCH ×2 (08:15→21:00)
[2023-06-28] MEDS: CYANOCOBALAMIN 500 MCG TAB PO SCH (08:15)
[2023-06-28] MEDS: APIXABAN 5 MG TAB (ELIQUIS) PO SCH ×2 (08:15→21:45)
[2023-06-28] MEDS: busPIRone 5 MG TAB PO SCH ×2 (08:15→21:47)
[2023-06-28] MEDS: POTASSIUM CHLORIDE 10MEQ SR TABLET PO SCH (08:16)
[2023-06-28] MEDS: POLYVINYL ALCOHOL OPHTH SOLN 15ML (LIQUITEARS) OU SCH ×3 (08:16→21:00)
[2023-06-28] MEDS ORDERED: FENTANYL REMOVAL DOCUMENTATION MISC XX SCH (09:00)
[2023-06-28] MEDS ORDERED: fentaNYL 50 MCG/HR PATCH TOP SCH (09:00)
[2023-06-28] MEDS: NS 1,000 ML IV SCH ×2 (12:07→23:33)
[2023-06-28] MEDS: dilTIAZem 120MG **CD** CAPSULE PO SCH ×2 (12:44→21:46)
[2023-06-28] MEDS: LevoFLOXacin 750 MG TABLET PO SCH (12:45)
[2023-06-28] MEDS: LORazepam 0.5 MG TAB PO SCH (14:12)
[2023-06-28] MEDS: METOCLOPRAMIDE INJ 10MG/2ML VIAL IV PRN (20:32)
[2023-06-28] MEDS: LATANOPROST 0.005% OPHTH SOLN 2.5 ML OU SCH (21:00)
[2023-06-28] MEDS: LEVEMIR (INSULIN DETEMIR) 1 UNITS/0.01ML SC SCH (21:00)
[2023-06-28] MEDS: DOCUSATE SODIUM 100MG CAPSULE PO SCH (21:00)
[2023-06-28] MEDS: rOPINIRole 0.25 MG TAB(REQUIP) PO SCH (21:48)
[2023-06-28] MEDS: ARIPiprazole 10 MG TAB PO SCH (21:49)
[2023-06-29 00:25] VITALS: BP 142/82; TEMP 97; O2SAT 93
[2023-06-29 04:20] VITALS: BP 134/78; TEMP 97.2; O2SAT 94
[2023-06-29] MEDS: LEVOTHYROXINE 100MCG TABLET (0.1MG) PO SCH (05:51)
[2023-06-29] MEDS: SUCRALFATE SUSP 1GM/10ML UD PO SCH ×5 (05:51→23:54)
[2023-06-29 06:35] LABS: HEMATOCRIT 28.4 % (36.0-47.0); HEMOGLOBIN 8.6 g/dl (12.0-15.5); MEAN CORPUSCULAR HEMOGLOBIN 32.5 pg (27.0-33.0); MEAN CORPUSCULAR HGB CONC 30.3 g/dl (32.0-36.5); MEAN CORPUSCULAR VOLUME 107.2 fl (80.0-96.0); PLATELET COUNT, AUTOMATED 212 10^3/uL (150-450); RED BLOOD COUNT 2.65 10^6/uL (4.00-5.40); WHITE BLOOD COUNT 13.5 10^3/uL (4.0-10.0)
[2023-06-29] MEDS: METOCLOPRAMIDE INJ 10MG/2ML VIAL IV PRN (06:46)
[2023-06-29 06:58] LABS: CALCIUM LEVEL 8.4 MG/DL (8.3-10.6); CREATININE FOR GFR 1.21 MG/DL (0.55-1.30); POTASSIUM SERUM 3.8 MMOL/L (3.5-5.1)
[2023-06-29 08:00] VITALS: BP 114/62; TEMP 97.3; O2SAT 90
[2023-06-29] MEDS: TIOTROPIUM INHALER/CAPSULE (SPIRIVA) INH SCH (08:21)
[2023-06-29] MEDS: LEVALBUTEROL 1.25MG 0.5ML CONCENTRATE NEB INH SCH ×4 (08:22→19:25)
[2023-06-29] MEDS: IPRATROPIUM 0.02% SOLN 0.5MG 2.5ML NEB INH SCH ×4 (08:23→19:25)
[2023-06-29] MEDS: POLYVINYL ALCOHOL OPHTH SOLN 15ML (LIQUITEARS) OU SCH ×3 (10:02→20:41)
[2023-06-29] MEDS: PANTOPRAZOLE 40MG VIAL IV SCH ×2 (10:02→20:39)
[2023-06-29] MEDS: INSULIN LISPRO (NovoLOG) PER UNIT SC SCH ×4 (10:02→20:40)
[2023-06-29] MEDS: SENNA 8.6 MG TAB (SENOKOT) PO SCH ×2 (10:03→20:39)
[2023-06-29] MEDS: ASPIRIN 81MG CHEW TABLET PO SCH (10:03)
[2023-06-29] MEDS: allopurinoL 100 MG TAB PO SCH (10:03)
[2023-06-29] MEDS: MIRALAX *UNIT DOSE* 17GM PACKET PO SCH ×2 (10:04→20:41)
[2023-06-29] MEDS: CYANOCOBALAMIN 500 MCG TAB PO SCH (10:04)
[2023-06-29] MEDS: POTASSIUM CHLORIDE 10MEQ SR TABLET PO SCH (10:04)
[2023-06-29] MEDS: APIXABAN 5 MG TAB (ELIQUIS) PO SCH ×2 (10:05→20:40)
[2023-06-29] MEDS: dilTIAZem 120MG **CD** CAPSULE PO SCH ×2 (10:05→20:39)
[2023-06-29] MEDS: MONTELUKAST 10 MG TAB PO SCH (10:05)
[2023-06-29] MEDS: busPIRone 5 MG TAB PO SCH ×2 (10:11→20:38)
[2023-06-29] MEDS: predniSONE 5 MG TAB PO SCH (10:11)
[2023-06-29] MEDS: METOCLOPRAMIDE 5 MG TAB PO SCH ×2 (12:17→17:30)
[2023-06-29] MEDS: NS 1,000 ML IV SCH (12:20)
[2023-06-29] MEDS: LORazepam 0.5 MG TAB PO SCH (14:09)
[2023-06-29 16:00] VITALS: BP 118/62; TEMP 97.5; O2SAT 94
[2023-06-29 20:27] VITALS: BP 134/53; TEMP 97.2; O2SAT 90
[2023-06-29] MEDS: ARIPiprazole 10 MG TAB PO SCH (20:39)
[2023-06-29] MEDS: DOCUSATE SODIUM 100MG CAPSULE PO SCH (20:39)
[2023-06-29] MEDS: rOPINIRole 0.25 MG TAB(REQUIP) PO SCH (20:39)
[2023-06-29] MEDS: LEVEMIR (INSULIN DETEMIR) 1 UNITS/0.01ML SC SCH (20:40)
[2023-06-29] MEDS: LATANOPROST 0.005% OPHTH SOLN 2.5 ML OU SCH (20:40)
[2023-06-29] MEDS: ANALGESIC BALM CRM 3OZ TOP PRN (22:32)
[2023-06-30] MEDS: oxyCODONE 5MG TAB PO PRN (00:50)
[2023-06-30] MEDS: NS 1,000 ML IV SCH (02:49)
[2023-06-30 04:56] VITALS: BP 134/66; TEMP 97.2; O2SAT 93
[2023-06-30] MEDS: SUCRALFATE SUSP 1GM/10ML UD PO SCH (05:13)
[2023-06-30] MEDS: LEVOTHYROXINE 100MCG TABLET (0.1MG) PO SCH (05:13)
[2023-06-30] MEDS: LevoFLOXacin 750 MG TABLET PO SCH (05:13)
[2023-06-30 06:42] LABS: HEMOGLOBIN 8.2 g/dl (12.0-15.5); MEAN CORPUSCULAR HEMOGLOBIN 32.8 pg (27.0-33.0); MEAN CORPUSCULAR HGB CONC 30.4 g/dl (32.0-36.5); PLATELET COUNT, AUTOMATED 168 10^3/uL (150-450); WHITE BLOOD COUNT 12.2 10^3/uL (4.0-10.0)
[2023-06-30] MEDS: INSULIN LISPRO (NovoLOG) PER UNIT SC SCH (07:30)
[2023-06-30] MEDS: LEVALBUTEROL 1.25MG 0.5ML CONCENTRATE NEB INH SCH (07:58)
[2023-06-30] MEDS: IPRATROPIUM 0.02% SOLN 0.5MG 2.5ML NEB INH SCH (07:58)
[2023-06-30] MEDS: TIOTROPIUM INHALER/CAPSULE (SPIRIVA) INH SCH (07:59)
[2023-06-30] MEDS ORDERED: METO5TAB2 PO (08:08)
[2023-06-30] MEDS ORDERED: LEVO1TAB40 PO (08:11)
[2023-06-30] MEDS ORDERED: BACI1CAP PO (08:11)
[2023-06-30] MEDS ORDERED: CARA1TAB6 PO (08:11)
[2023-06-30] MEDS ORDERED: PROT1TAB2 PO (08:11)
[2023-06-30 08:15] VITALS: BP 116/56; TEMP 96.3; O2SAT 100
[2023-06-30] MEDS: PANTOPRAZOLE 40MG VIAL IV SCH (10:06)
[2023-06-30] MEDS: ASPIRIN 81MG CHEW TABLET PO SCH (10:06)
[2023-06-30] MEDS: CYANOCOBALAMIN 500 MCG TAB PO SCH (10:07)
[2023-06-30] MEDS: METOCLOPRAMIDE 5 MG TAB PO SCH (10:07)
[2023-06-30] MEDS: busPIRone 5 MG TAB PO SCH (10:07)
[2023-06-30] MEDS: SENNA 8.6 MG TAB (SENOKOT) PO SCH (10:07)
[2023-06-30] MEDS: allopurinoL 100 MG TAB PO SCH (10:07)
[2023-06-30] MEDS: MONTELUKAST 10 MG TAB PO SCH (10:07)
[2023-06-30] MEDS: POTASSIUM CHLORIDE 10MEQ SR TABLET PO SCH (10:07)
[2023-06-30 10:08] VITALS: BP 116/56
[2023-06-30] MEDS: POLYVINYL ALCOHOL OPHTH SOLN 15ML (LIQUITEARS) OU SCH (10:08)
[2023-06-30] MEDS: APIXABAN 5 MG TAB (ELIQUIS) PO SCH (10:08)
[2023-06-30] MEDS: dilTIAZem 120MG **CD** CAPSULE PO SCH (10:08)
[2023-06-30] MEDS: MIRALAX *UNIT DOSE* 17GM PACKET PO SCH (10:09)
[2023-06-30] MEDS: predniSONE 5 MG TAB PO SCH (10:09)
[2023-06-30] MEDS ORDERED: ELIQ5TAB PO (10:40)
[2023-06-30 16:10] LABS: BODY FLUID CULTURE Not indicated. (.); LEGIONELLA ANTIGEN URINE Negative (Negative); ORGANISM ID Not indicated. (.); SPECIMEN SOURCE Urine (.); URINE STREP PNEUMONIAE ANTIGEN Negative (Negative)
[2023-07-01 10:38] LABS: GLOMERULAR FILTRATION RATE 56.1 (>32); POTASSIUM SERUM 4.3 MEQ/L (3.6-5.0)
[2023-07-01 10:39] LABS: CALCIUM LEVEL 8.4 MG/DL (8.8-10.2)
[2023-07-03] MEDS ORDERED: CALCITRIOL 0.25 MCG CAP (S0169) PO SCH (20:00)
== END 2023-06-30 12:56 | DRG 871 ==
LOC: M ED 09:46 → M ED INP 11:58 → M PCU 15:38
PROVIDERS: ADMIT General Practice; ATTEND General Practice
PROC: B246ZZZ Ultrasonography of Right and Left Heart (ICD-10-PCS; principal; 2023-06-28)
DX: A41.9 Sepsis, unspecified organism (principal); J15.69 Pneumonia due to other Gram-negative bacteria; J96.11 Chronic respiratory failure with hypoxia; N39.0 Urinary tract infection, site not specified; J44.0 Chronic obstructive pulmonary disease with (acute) lower respiratory infection; I25.10 Atherosclerotic heart disease of native coronary artery without angina pectoris; G47.33 Obstructive sleep apnea (adult) (pediatric); E11.43 Type 2 diabetes mellitus with diabetic autonomic (poly)neuropathy; I12.9 Hypertensive chronic kidney disease with stage 1 through stage 4 chronic kidney disease, or unspecified chronic kidney disease; N18.9 Chronic kidney disease, unspecified; M81.0 Age-related osteoporosis without current pathological fracture; H40.9 Unspecified glaucoma; F41.9 Anxiety disorder, unspecified; F32.A Depression, unspecified; E78.5 Hyperlipidemia, unspecified; Z66 Do not resuscitate; I48.91 Unspecified atrial fibrillation; K52.9 Noninfective gastroenteritis and colitis, unspecified; M10.9 Gout, unspecified; K21.9 Gastro-esophageal reflux disease without esophagitis; M19.90 Unspecified osteoarthritis, unspecified site; E11.22 Type 2 diabetes mellitus with diabetic chronic kidney disease; D64.9 Anemia, unspecified; J30.81 Allergic rhinitis due to animal (cat) (dog) hair and dander; K31.84 Gastroparesis; R00.0 Tachycardia, unspecified; B96.1 Klebsiella pneumoniae [K. pneumoniae] as the cause of diseases classified elsewhere; Z87.891 Personal history of nicotine dependence; Y95 Nosocomial condition; Z99.81 Dependence on supplemental oxygen; Z79.82 Long term (current) use of aspirin; Z79.891 Long term (current) use of opiate analgesic; Z79.899 Other long term (current) drug therapy

== ENCOUNTER → 2023-07-03 | Outpatient (REF) | payer MEDICARE, MEDICAID ==
[~2023-07-03] MED LIST changes: +ACET-683 PO; +ALBU8.5H INH; +ALLO100T PO; +AQUAOIN12 TP; +ARIP1TAB PO; +ASPI81CH33 PO; +ATIV1TAB10 PO; +BACI1CAP PO; +BENG1CRE TOP; +BUSP5TA PO; +CARA1TAB6 PO; +CARV6.25 PO; +DOCU100C16 PO; +DRIS50003 PO; +DULC10SU2 PR; +DULO60CA35 PO; +ELIQ5TAB PO; +FENT1PAT25 TOP; +FLUT1BLS5 INH; +FURO40TA2 PO; +INSU100I48 SC; +IPRA0.00 INH; +LEVO100T5 PO; +LEVO1TAB40 PO; +LEXA1TAB2 PO; +METO5TAB2 PO; +MILKSUS3 PO; +MONT10TA97 PO; +OXYC-517 PO; +POLY1.4S OU; +POLY17PO10 PO; +POTA1TAB23 PO; +PRED5TA PO; +PREG50CA3 PO; +PROT1TAB2 PO; +ROCA0.25 PO; +ROFL500T PO; +ROPI0.5T33 PO; +SENN-188 PO; +SPIR1CAP INH; +TIZA2TA PO; +TRAZ-252 PO; +TRUL10IN SC; +VITA500T40 PO; +XALA0.007 OU
== END ==
PROVIDERS: ATTEND Nurse Practitioner Family
DX: N18.9 Chronic kidney disease, unspecified (principal); Z53.8 Procedure and treatment not carried out for other reasons

== ENCOUNTER → 2023-07-04 | Outpatient (CLI) | payer MEDICARE, MEDICAID | LOC: M RAD 09:47 | PROVIDERS: ATTEND General Practice | DX: K31.84 Gastroparesis (principal) | CPT/HCPCS: 78264; A9541 ==

== ENCOUNTER → 2023-07-10 | Outpatient (REF) | payer MEDICARE, MEDICAID ==
[2023-07-10 10:48] LABS: HEMATOCRIT 28.2 % (36.0-47.0); HEMOGLOBIN 8.3 g/dl (12.0-15.5); MEAN CORPUSCULAR HEMOGLOBIN 31.4 pg (27.0-33.0); MEAN CORPUSCULAR HGB CONC 29.4 g/dl (32.0-36.5); MEAN CORPUSCULAR VOLUME 106.8 fl (80.0-96.0); PLATELET COUNT, AUTOMATED 260 10^3/uL (150-450); RED BLOOD COUNT 2.64 10^6/uL (4.00-5.40); WHITE BLOOD COUNT 8.4 10^3/uL (4.0-10.0)
[2023-07-10 11:26] LABS: BLOOD UREA NITROGEN 22 MG/DL (9-23); CALCIUM LEVEL 8.9 MG/DL (8.3-10.6); CARBON DIOXIDE LEVEL > 40.0 MMOL/L (20-31); CHLORIDE LEVEL 97 MMOL/L (98-107); CREATININE FOR GFR 0.97 MG/DL (0.55-1.30); GLOMERULAR FILTRATION RATE 58.1 (>32); GLUCOSE, FASTING 172 MG/DL (74-106); POTASSIUM SERUM 4.1 MMOL/L (3.5-5.1); SODIUM LEVEL 144 MMOL/L (136-145)
== END ==
PROVIDERS: ATTEND Nurse Practitioner Family
DX: N18.9 Chronic kidney disease, unspecified (principal)

== ENCOUNTER → 2023-07-12 | Outpatient (REF) | payer MEDICARE, MEDICAID ==
[2023-07-12 18:25] LABS: APPEARANCE, URINE CLEAR (CLEAR); BACTERIA, URINE AUTO 1+ (NEGATIVE); BILIRUBIN, URINE AUTO NEGATIVE (NEGATIVE); BLOOD, URINE BLOOD NEGATIVE (NEGATIVE); COLOR, URINE YELLOW (YELLOW); GLUCOSE, URINE (UA) AUTO NEGATIVE (NEGATIVE); KETONE, URINE AUTO NEGATIVE (NEGATIVE); LEUKOCYTE ESTERASE, URINE AUTO NEGATIVE (NEGATIVE); MUCUS, URINE SMALL (NEGATIVE); NITRITE, URINE AUTO NEGATIVE (NEGATIVE); PROTEIN, URINE AUTO NEGATIVE (NEGATIVE); RBC, URINE AUTO 0 /HPF (0-3); SQUAMOUS EPITHELIAL CELL UR AU 0 /HPF (0-6); UROBILINOGEN, URINE AUTO 0.2 mg/dL (0.0-2.0); WBC, URINE AUTO 0 /HPF (0-3)
== END ==
PROVIDERS: ATTEND Nurse Practitioner Family
DX: R10.9 Unspecified abdominal pain (principal)

== ENCOUNTER → 2023-07-13 | Outpatient (REF) | payer MEDICARE, MEDICAID | PROVIDERS: ATTEND Internal Medicine | DX: R10.9 Unspecified abdominal pain (principal) ==

== ENCOUNTER → 2023-07-14 | Outpatient (REF) | payer MEDICARE, MEDICAID ==
[2023-07-14 09:56] LABS: BASO # 0.1 10^3/uL (0.0-0.2); BASO % 0.7 % (0.0-1.0); EOS # 0.2 10^3/uL (0.0-0.5); EOS % 2.6 % (0.0-3.0); HEMATOCRIT 25.7 % (36.0-47.0); HEMOGLOBIN 7.4 g/dl (12.0-15.5); LYMPH # 1.2 10^3/uL (1.5-5.0); LYMPH % 16.6 % (24.0-44.0); MEAN CORPUSCULAR HEMOGLOBIN 30.8 pg (27.0-33.0); MEAN CORPUSCULAR HGB CONC 28.8 g/dl (32.0-36.5); MEAN CORPUSCULAR VOLUME 107.1 fl (80.0-96.0); MONO # 0.8 10^3/uL (0.0-0.8); MONO % 10.1 % (2.0-8.0); NEUTROPHILS # 5.1 10^3/uL (1.5-8.5); NEUTROPHILS % 67.8 % (36.0-66.0); PLATELET COUNT, AUTOMATED 210 10^3/uL (150-450); WHITE BLOOD COUNT 7.4 10^3/uL (4.0-10.0)
[2023-07-14 10:33] LABS: BLOOD UREA NITROGEN 21 MG/DL (9-23); CALCIUM LEVEL 9.3 MG/DL (8.3-10.6); CARBON DIOXIDE LEVEL > 40.0 MMOL/L (20-31); CHLORIDE LEVEL 95 MMOL/L (98-107); CREATININE FOR GFR 1.07 MG/DL (0.55-1.30); GLOMERULAR FILTRATION RATE 51.9 (>32); GLUCOSE, FASTING 106 MG/DL (74-106); POTASSIUM SERUM 4.2 MMOL/L (3.5-5.1); SODIUM LEVEL 139 MMOL/L (136-145)
== END ==
PROVIDERS: ATTEND Nurse Practitioner Family
DX: N18.9 Chronic kidney disease, unspecified (principal); I50.9 Heart failure, unspecified

== ENCOUNTER → 2023-07-17 | Outpatient (REF) | payer MEDICARE, MEDICAID ==
[2023-07-17 11:33] LABS: HEMATOCRIT 26.7 % (36.0-47.0); HEMOGLOBIN 7.9 g/dl (12.0-15.5); MEAN CORPUSCULAR HEMOGLOBIN 31.7 pg (27.0-33.0); MEAN CORPUSCULAR HGB CONC 29.6 g/dl (32.0-36.5); MEAN CORPUSCULAR VOLUME 107.2 fl (80.0-96.0); PLATELET COUNT, AUTOMATED 212 10^3/uL (150-450); RED BLOOD COUNT 2.49 10^6/uL (4.00-5.40); WHITE BLOOD COUNT 10.5 10^3/uL (4.0-10.0)
[2023-07-17 11:53] LABS: CALCIUM LEVEL 8.9 MG/DL (8.3-10.6); CREATININE FOR GFR 0.97 MG/DL (0.55-1.30); GLOMERULAR FILTRATION RATE 58.1 (>32); POTASSIUM SERUM 4.1 MMOL/L (3.5-5.1)
== END ==
PROVIDERS: ATTEND Nurse Practitioner Family
DX: N18.9 Chronic kidney disease, unspecified (principal); I50.9 Heart failure, unspecified

== ENCOUNTER → 2023-07-24 | Outpatient (REF) | payer MEDICARE, MEDICAID ==
[2023-07-24 11:33] LABS: HEMATOCRIT 26.1 % (36.0-47.0); HEMOGLOBIN 7.4 g/dl (12.0-15.5); MEAN CORPUSCULAR HEMOGLOBIN 30.7 pg (27.0-33.0); MEAN CORPUSCULAR HGB CONC 28.4 g/dl (32.0-36.5); MEAN CORPUSCULAR VOLUME 108.3 fl (80.0-96.0); PLATELET COUNT, AUTOMATED 163 10^3/uL (150-450); RED BLOOD COUNT 2.41 10^6/uL (4.00-5.40); WHITE BLOOD COUNT 7.9 10^3/uL (4.0-10.0)
== END ==
PROVIDERS: ATTEND Internal Medicine
DX: D64.9 Anemia, unspecified (principal)

== ENCOUNTER → 2023-07-26 | Outpatient (REF) | payer MEDICARE, MEDICAID | PROVIDERS: ATTEND Internal Medicine | DX: D64.9 Anemia, unspecified (principal); J98.4 Other disorders of lung; I51.7 Cardiomegaly ==

== ENCOUNTER → 2023-07-26 | Outpatient (REF) | payer MEDICARE, MEDICAID | PROVIDERS: ATTEND Internal Medicine | DX: J98.4 Other disorders of lung (principal); I51.7 Cardiomegaly ==

== ENCOUNTER → 2023-08-02 | Outpatient (REF) | payer MEDICARE, MEDICAID ==
[2023-08-02 10:11] LABS: HEMATOCRIT 26.6 % (36.0-47.0); HEMOGLOBIN 7.9 g/dl (12.0-15.5); MEAN CORPUSCULAR HEMOGLOBIN 30.5 pg (27.0-33.0); MEAN CORPUSCULAR HGB CONC 29.7 g/dl (32.0-36.5); MEAN CORPUSCULAR VOLUME 102.7 fl (80.0-96.0); PLATELET COUNT, AUTOMATED 156 10^3/uL (150-450); RED BLOOD COUNT 2.59 10^6/uL (4.00-5.40)
[2023-08-02 10:29] LABS: IRON (FE) 33 UG/DL (50-170); PERCENT SATURATION 16.1 % (13.2-45.0); TOTAL IRON BINDING CAPACITY 205 UG/DL (250-425)
[2023-08-02 10:32] LABS: BLOOD UREA NITROGEN 21 MG/DL (9-23); CALCIUM LEVEL 9.5 MG/DL (8.3-10.6); CARBON DIOXIDE LEVEL > 40.0 MMOL/L (20-31); CHLORIDE LEVEL 93 MMOL/L (98-107); CREATININE FOR GFR 0.91 MG/DL (0.55-1.30); FERRITIN 89.1 NG/ML (7.3-270.7); GLOMERULAR FILTRATION RATE > 60.0 (>32); GLUCOSE, FASTING 103 MG/DL (74-106); POTASSIUM SERUM 3.5 MMOL/L (3.5-5.1); SODIUM LEVEL 138 MMOL/L (136-145); VITAMIN B12 LEVEL 1874 PG/ML (211-911)
== END ==
PROVIDERS: ATTEND Nurse Practitioner Family
DX: J44.9 Chronic obstructive pulmonary disease, unspecified (principal); N18.9 Chronic kidney disease, unspecified

== ENCOUNTER → 2023-08-11 | Outpatient (REF) | payer MEDICARE, MEDICAID ==
[~2023-08-11] MED LIST changes: +ATOR80TA59 PO; +BUME2TAB3 PO; +DIGO0.123 PO; +ENTR1TAB7 PO; +JARD1TAB PO; +METO1TAB33 PO; +PACE200T PO; +WARF4TAB51 PO
== END ==
PROVIDERS: ATTEND Internal Medicine
DX: E53.8 Deficiency of other specified B group vitamins (principal); Z53.8 Procedure and treatment not carried out for other reasons

== ENCOUNTER 2023-08-14 04:45 | Inpatient (IN) | payer MEDICARE, MEDICAID ==
[~2023-08-14] VITALS: Ht 165.1 cm; Wt 103.0 kg
[~2023-08-14 04:45] MED LIST changes: -ATOR80TA59 PO; -BUME2TAB3 PO; -DIGO0.123 PO; -ENTR1TAB7 PO; -JARD1TAB PO; -METO1TAB33 PO; -PACE200T PO; -WARF4TAB51 PO
[2023-08-14 04:55] VITALS: TEMP 98.9
[2023-08-14] MEDS ORDERED: METOPROLOL 5 MG/5 ML VIAL IV SCH (04:55)
[2023-08-14] MEDS ORDERED: ADENOSINE 6MG 2ML INJECTION IV STA ×2 (05:04)
[2023-08-14] MEDS ORDERED: NS 1,000 ML IV ONE ×2 (05:10→06:50)
[2023-08-14] MEDS ORDERED: DIGOXIN INJ 0.5 MG/2 ML AMP IV ONE ×2 (05:25→06:30)
[2023-08-14 05:38] LABS: HEMOGLOBIN 11.3 g/dl (12.0-15.5); MEAN CORPUSCULAR HEMOGLOBIN 29.4 pg (27.0-33.0); MEAN CORPUSCULAR VOLUME 101.6 fl (80.0-96.0); PLATELET COUNT, AUTOMATED 481 10^3/uL (150-450); RED BLOOD COUNT 3.84 10^6/uL (4.00-5.40)
[2023-08-14 05:50] LABS: ABG HCO3 25.5 MMOL/L (22.0-26.0); ABG O2 SATURATION 71.5 % (95.0-99.0); ABG STANDARD HCO3 21.4 MMOL/L. (22.0-26.0); ABG TOTAL CO2 27.5 MMOL/L (23.0-31.0)
[2023-08-14 05:51] LABS: ABG pH (ARTERIAL) 7.217 UNITS (7.350-7.450)
[2023-08-14 05:52] LABS: ABG PARTIAL PRESSURE CO2 64.3 mmHg (35.0-45.0)
[2023-08-14 05:54] LABS: ABG PARTIAL PRESSURE O2 44.5 mmHg (75.0-100.0)
[2023-08-14] MEDS ORDERED: VANCOMYCIN HCL 1,000 MG in IV FLUID PLACE HOLDER 1 EA IV ONE (06:00)
[2023-08-14] MEDS ORDERED: CEFEPIME HCL 2 GM in D5W MINI-BAG PLUS 50 ML IV ONE (06:00)
[2023-08-14] MEDS ORDERED: LEVALBUTEROL 1.25MG 0.5ML CONCENTRATE NEB NEB ONE (06:00)
[2023-08-14 06:23] LABS: ALBUMIN 2.6 G/DL (3.2-5.2); ALKALINE PHOSPHATASE 72 U/L (46-116); AST/SGOT 47 U/L (<34); BILIRUBIN,DIRECT < 0.1 MG/DL (<0.4); BILIRUBIN,TOTAL 0.4 MG/DL (0.3-1.2); CALCIUM LEVEL 9.7 MG/DL (8.3-10.6); CARBON DIOXIDE LEVEL 28 MMOL/L (20-31); CHLORIDE LEVEL 92 MMOL/L (98-107); GLUCOSE, FASTING 174 MG/DL (74-106); SODIUM LEVEL 135 MMOL/L (136-145)
[2023-08-14 06:24] LABS: ALT/SGPT 15 U/L (7.0-40); BLOOD UREA NITROGEN 71 MG/DL (9-23); CREATININE FOR GFR 2.49 MG/DL (0.55-1.30); GLOMERULAR FILTRATION RATE 19.6 (>32)
[2023-08-14 06:41] LABS: ANISOCYTOSIS 1+; ATYPICAL LYMPH 2 % (0-5); EOSINOPHILS 1 % (0-3); LYMPHOCYTES 4 % (16-44); METAMYELOCYTES 2 % (0-0); MONOCYTES 6 % (0-5); NEUTROPHILS 73 % (28-66); PLATELET CLUMPS SMALL AMT; PLATELET ESTIMATE NORMAL (NORMAL)
[2023-08-14 06:42] LABS: HYPOCHROMASIA 2+
[2023-08-14] MEDS ORDERED: SODIUM BICARBONATE 8.4% INJ 50ML SYRINGE IV STA (06:53)
[2023-08-14] MEDS ORDERED: AZITHROMYCIN INJ 500 MG, VIAL MATE ADAPTER 1 EACH in NS 250 ML IV ONE (07:00)
[2023-08-14] MEDS ORDERED: NOREPINEPHRINE 4MG IN D5 250ML 4 MG in IV 1 EA IV SCH ×2 (07:40)
[2023-08-14] MEDS ORDERED: LIDOCAINE 2% 5ML JELLY UROJET TOP ONE (07:40)
[2023-08-14] MEDS ORDERED: NS 1,090 ML in IV 1 EA IV ONE (07:50)
[2023-08-14 07:52] LABS: CK-MB VALUE MASS < 1.0 NG/ML (<3.6)
[2023-08-14 07:53] LABS: CPK CREATINE PHOSPHOKINASE 16 U/L (34-145); MB/CK RELATIVE INDEX 6.25 (< OR =4)
[2023-08-14] MEDS ORDERED: VANCOMYCIN HCL 1,000 MG, VIAL MATE ADAPTER 1 EACH in D5W 250 ML IV ONE (08:00)
[2023-08-14] MEDS ORDERED: WARF4TAB51 PO (08:07)
[2023-08-14] MEDS ORDERED: ATOR80TA59 PO (08:08)
[2023-08-14] MEDS ORDERED: JARD1TAB PO (08:09)
[2023-08-14] MEDS ORDERED: ENTR1TAB7 PO (08:10)
[2023-08-14] MEDS ORDERED: METO1TAB33 PO (08:10)
[2023-08-14] MEDS ORDERED: PACE200T PO (08:11)
[2023-08-14] MEDS ORDERED: DIGO0.123 PO (08:11)
[2023-08-14] MEDS ORDERED: BUME2TAB3 PO (08:12)
[2023-08-14 08:37] LABS: ABG BASE EXCESS 1.5 (-2.0-2.0); ABG HCO3 28.4 MMOL/L (22.0-26.0); ABG O2 SATURATION 88.7 % (95.0-99.0); ABG PARTIAL PRESSURE CO2 56.4 mmHg (35.0-45.0); ABG PARTIAL PRESSURE O2 62.2 mmHg (75.0-100.0); ABG STANDARD HCO3 25.7 MMOL/L. (22.0-26.0); ABG TOTAL CO2 30.1 MMOL/L (23.0-31.0)
[2023-08-14] MEDS ORDERED: MED REC IN PROGRESS XX SCH (08:45)
[2023-08-14 08:46] LABS: APPEARANCE, URINE TURBID (CLEAR); BACTERIA, URINE AUTO 3+ (NEGATIVE); BILIRUBIN, URINE AUTO NEGATIVE (NEGATIVE); BLOOD, URINE BLOOD NEGATIVE (NEGATIVE); COLOR, URINE AMBER (YELLOW); GLUCOSE, URINE (UA) AUTO NEGATIVE (NEGATIVE); KETONE, URINE AUTO NEGATIVE (NEGATIVE); LEUKOCYTE ESTERASE, URINE AUTO 3+ (NEGATIVE); NITRITE, URINE AUTO NEGATIVE (NEGATIVE); PROTEIN, URINE AUTO 1+ mg/dL (NEGATIVE); RBC, URINE AUTO 5 /HPF (0-3); SPECIFIC GRAVITY URINE AUTO 1.012 (1.002-1.035); SQUAMOUS EPITHELIAL CELL UR AU 3 /HPF (0-6); UROBILINOGEN, URINE AUTO 0.2 mg/dL (0.0-2.0); WBC, URINE AUTO TNTC /HPF (0-3)
[2023-08-14 08:51] LABS: PROCALCITONIN 0.44 ng/ml
[2023-08-14 09:11] LABS: INR 1.21; PROTHROMBIN TIME 14.9 SECONDS (12.5-14.5)
[2023-08-14 09:12] LABS: PARTIAL THROMBOPLASTIN TIME 29.4 SECONDS (24.8-34.2)
[2023-08-14 09:13] LABS: CK-MB VALUE MASS < 1.0 NG/ML (<3.6); CPK CREATINE PHOSPHOKINASE 40 U/L (34-145)
[2023-08-14 09:14] LABS: POTASSIUM SERUM 5.5 MMOL/L (3.5-5.1)
[2023-08-14] MEDS ORDERED: MORPHINE 2 MG/ML 1ML VIAL IV PRN (09:25)
[2023-08-14] MEDS ORDERED: BISACODYL 10MG SUPP PR PRN (09:25)
[2023-08-14] MEDS ORDERED: SCOPOLAMINE 1MG TRANSDERMAL PATCH TOP PRN (09:25)
[2023-08-14] MEDS ORDERED: ATROPINE SULFATE 1% OPHTH SOLN 2ML BTL SL PRN (09:25)
[2023-08-14] MEDS ORDERED: FLEET ENEMA PR PRN (09:25)
[2023-08-14] MEDS ORDERED: HYOSCYAMINE SULFATE 0.125 MG SUBL TABLET PO PRN (09:25)
[2023-08-14] MEDS ORDERED: LORazepam 2 MG/ML 1ML VIAL IV PRN (09:25)
[2023-08-14] MEDS ORDERED: ACETAMINOPHEN TAB 650MG DOSE (2X325MG) PO PRN (09:25)
[2023-08-14] MEDS ORDERED: ONDANSETRON 4MG 2ML VIAL IV PRN (09:25)
[2023-08-14 10:46] VITALS: O2SAT 71
[2023-08-14 10:50] VITALS: BP 87/51
== END 2023-08-14 13:03 | disposition expired | DRG 871 ==
LOC: M ED 04:45 → M ED INP 09:22
PROVIDERS: ADMIT General Practice; ATTEND General Practice
DX: A41.9 Sepsis, unspecified organism (principal); R65.21 Severe sepsis with septic shock; J96.21 Acute and chronic respiratory failure with hypoxia; J96.02 Acute respiratory failure with hypercapnia; J15.69 Pneumonia due to other Gram-negative bacteria; G93.41 Metabolic encephalopathy; N17.9 Acute kidney failure, unspecified; E87.1 Hypo-osmolality and hyponatremia; E87.29 Other acidosis; J44.0 Chronic obstructive pulmonary disease with (acute) lower respiratory infection; E87.5 Hyperkalemia; I48.91 Unspecified atrial fibrillation; Z66 Do not resuscitate; Z51.5 Encounter for palliative care; G47.33 Obstructive sleep apnea (adult) (pediatric); I25.10 Atherosclerotic heart disease of native coronary artery without angina pectoris; E11.43 Type 2 diabetes mellitus with diabetic autonomic (poly)neuropathy; I12.9 Hypertensive chronic kidney disease with stage 1 through stage 4 chronic kidney disease, or unspecified chronic kidney disease; N18.30 Chronic kidney disease, stage 3 unspecified; M81.0 Age-related osteoporosis without current pathological fracture; J30.81 Allergic rhinitis due to animal (cat) (dog) hair and dander; M10.9 Gout, unspecified; F41.9 Anxiety disorder, unspecified; E83.52 Hypercalcemia; F32.A Depression, unspecified; E78.5 Hyperlipidemia, unspecified; K31.84 Gastroparesis; E11.22 Type 2 diabetes mellitus with diabetic chronic kidney disease; Z79.01 Long term (current) use of anticoagulants; Z79.82 Long term (current) use of aspirin; Z79.890 Hormone replacement therapy; Z79.899 Other long term (current) drug therapy